=== PATIENT | male | born 1945 | race Caucasian/White ===

== ENCOUNTER 2017-08-03 11:01 | Inpatient (IN) | payer OTHER ==
[~2017-08-03] VITALS: Ht 185.4 cm; Wt 76.7 kg
--- NOTE | 2017-08-03 11:03 | NUR ---
PT BIBA FROM [facility] TO BED 10
[2017-08-03 11:15] VITALS: BP 122/64
[2017-08-03] MEDS ORDERED: NACL 0.9% 500 ML IV SCH (11:39)
[2017-08-03] MEDS ORDERED: PIPERACILLIN/TAZOBACTAM 3.375 GM in DEXT 5% MINI-BAG PLUS 50 ML IV ONE (11:40)
[2017-08-03] MEDS ORDERED: ACETAMINOPHEN 650 MG SUPP RC ONE ×2 (11:40→11:45)
[2017-08-03] MEDS ORDERED: DOXA2TAB1 GT (11:47)
[2017-08-03] MEDS ORDERED: DILT-47 GT (11:47)
[2017-08-03] MEDS ORDERED: PYRI50TA12 GT (11:47)
[2017-08-03] MEDS ORDERED: FAMO-90 GT (11:47)
[2017-08-03] MEDS ORDERED: KEP500 GT (11:47)
[2017-08-03] MEDS ORDERED: ISON100T8 GT (11:47)
[2017-08-03] MEDS ORDERED: GLIP10TE GT (11:47)
[2017-08-03] MEDS ORDERED: L. A1CAP GT (11:47)
[2017-08-03] MEDS ORDERED: DIGO0.121 GT (11:47)
[2017-08-03] MEDS ORDERED: NUTR-583 GT (11:47)
[2017-08-03] MEDS ORDERED: CRAN450C GT (11:47)
[2017-08-03] MEDS ORDERED: MIRABULK GT (11:47)
--- NOTE | 2017-08-03 11:52 | NUR ---
XRAY AT BEDSIDE
[2017-08-03] MEDS ORDERED: PIPERACILLIN/TAZOBACTAM 3.375 GM VIAL IV ONE (11:53)
[2017-08-03 12:03] LABS: HEMATOCRIT 40.4 % (36-52); HEMOGLOBIN 13.5 g/dL (12.0-18.0); MEAN CORPUSCULAR HEMOGLOBIN 30 pg (27-31); MEAN CORPUSCULAR HGB CONC 34 g/dL (33-37); MEAN CORPUSCULAR VOLUME 90 fL (80-94); PLATELET COUNT (AUTO) 242 K/uL (140-450); RED BLOOD CELL COUNT(AUTO) 4.49 MIL/uL (4.20-6.10); RED CELL DISTRIBUTION WIDTH 12.5 % (11.6-13.7); WHITE BLOOD COUNT (AUTO) 20.2 K/uL (4.8-10.8)
[2017-08-03 12:13] LABS: LYMPHOCYTES % (MANUAL) 3 % (20-46); MONOCYTES % (MANUAL) 5 % (5-12)
[2017-08-03 12:14] LABS: ANION GAP 12.9 (8-16); CARBON DIOXIDE 28.4 mmol/L (21-32); CHLORIDE 99 mmol/L (98-107); CREATININE 0.9 mg/dL (0.7-1.3); GLUCOSE 225 mg/dL (74-106); POTASSIUM 4.3 mmol/L (3.5-5.1); SODIUM SERUM 136 mmol/L (136-145); UREA NITROGEN, BLOOD 20 mg/dL (7-18)
[2017-08-03 12:14] LABS: PROTHROMBIN TIME 10.5 secs (10.8-13.4)
[2017-08-03 12:19] LABS: ALBUMIN 3.5 g/dL (3.4-5.0); ASPARTATE AMINOTRANSFERASE 58 U/L (15-37)
[2017-08-03] MEDS ORDERED: ALBUTEROL SULFATE/IPRATROPIU 3 ML SOL IH ONE (12:30)
--- NOTE | 2017-08-03 12:39 | NUR ---
Attempted ivan indwelling catheter insertion, unable to complete. Attempted with coude 14 [address] 16[address] Unable to place catheter at this time. ER Dr abdul.
--- NOTE | 2017-08-03 12:41 | NUR ---
lab critical taken, Lactic acid 3.6. ER aware.
--- NOTE | 2017-08-03 13:17 | NUR ---
PATIENT AWAKE, NONVERBAL. COOL AEROSOL, FI02 28% TO T PIECE. TX GIVEN. SUCTIONED SMALL AMOUNT OF THICK YELLOW SECRETIONS. TOLERATED TX WELL. NO RESPIRATORY DISTRESS NOTED AT THIS TIME.
[2017-08-03] MEDS: NACL 0.9% 1,000 ML IV SCH ×5 (14:09→16:00)
[2017-08-03] MEDS ORDERED: VANCOMYCIN PER PHARMACY MC PRN (14:10)
[2017-08-03] MEDS ORDERED: DEXTROSE 50% 50 ML SYR IVP PRN (14:10)
[2017-08-03] MEDS ORDERED: ALBUTEROL SULFATE/IPRATROPIU 3 ML SOL IH PRN (14:25)
--- NOTE | 2017-08-03 15:05 | NUR ---
ADMITTED PT TO ICU FROM ER. PT IS NONVERBAL, OPENS EYES, UNABLE TO FOLLOW COMMANDS AND UNABLE TO MAKE NEEDS KNOWN. PERRL. TEMP 100.0F. VITAL SIGNS STABLE. FIRST DEGREE AV BLOCK ON MONITOR. PT IS TRACH TO COOL AEROSOL 28%. COARSE INSPIRATORY, EXPIRATORY BREATH SOUNDS AUSCULTATED. BREATHING EVEN AND UNLABORED. ABDOMEN SOFT, NON DISTENDED, G-TUBE IN PLACE TO LEFT UPPER QUADRANT. PERIPHERAL IV G22 TO LEFT HAND ASYMPTOMATIC, PATENT AND INTACT. PT RECEIVING ORDERED IV BOLUS. PULSES PALPABLE TO BUE AND BLE. SKIN IS INTACT, DRY AND WARM TO TOUCH. RIGHT UPPER EXTREMITY FLACCID, LEFT UPPER EXTREMITY AND BLE CONTRACTED. NO EDEMA NOTED. HOB 30 DEGREES, BED IN LOWEST POSITION AND CALL LIGHT WITHIN REACH. WILL CONTINUE TO MONITOR.
--- NOTE | 2017-08-03 15:07 | NUR ---
REPORT GIVEN AND CARE TRANSFERED TO HINA HULL IN ICU 1. ESCORTED VIA GURNEY BY GUZMAN HULL AND MITRA RT.
[2017-08-03] MEDS ORDERED: POTASSIUM CHL 20 MEQ/NACL 0.9% 1,000 ML IV ONE (15:30)
--- NOTE | 2017-08-03 15:40 | NUR ---
COMPLETED ORDERED IV BOLUS THAT STARTED INFUSING AT THE ER.
[2017-08-03] MEDS ORDERED: NACL 0.9% 500 ML IV ONE (15:45)
--- NOTE | 2017-08-03 15:50 | NUR ---
VERIFIED IV FLUID ORDER WITH DR. BROWER. DR. BROWRE AWARE OF POTASSIUM LEVEL 4.3. OKAY TO GIVE IV FLUID ORDERED PER DR. BROWER.
[2017-08-03 16:00] VITALS: BP 109/61
[2017-08-03] MEDS: VANCOMYCIN 1,250 MG in DEXTROSE 5% 250 ML IV SCH (16:07)
--- NOTE | 2017-08-03 16:50 | NUR ---
TUBE FEEDING STARTED AT 10 ML/HR (GOAL 50ML/HR). NO GASTRIC RESIDUALS AT THIS TIME.
[2017-08-03] MEDS: BLOOD GLUCOSE MONITORING 1 DEV DEV FS SCH ×2 (16:54→21:59)
[2017-08-03] MEDS: INSULIN LISPRO SLIDING SCALE 100 UNITS/ML VIAL SUBQ PRN ×2 (16:58→21:59)
--- NOTE | 2017-08-03 17:00 | NUR ---
ATTEMPTED TO INSERT POMPA CATHETER BUT COULD NOT ADVANCE THE CATHETER AFTER INSERTING A FEW INCHES AND RESISTANCE NOTED. DR. BROWER MADE AWARE. PER DR. BROWER, NO NEW ORDER LONG THE PT MAKES URINE AND VOIDS FREELY.
[2017-08-03 18:00] VITALS: BP 108/61
--- NOTE | 2017-08-03 18:21 | NUR ---
NO GASTRIC RESIDUALS. TUBE FEEDING RATE INCREASED TO 20 ML/HR.
[2017-08-03] MEDS: PIPER/TAZO 3.375GM/D5W PREMIX 50 ML IV SCH (18:31)
--- NOTE | 2017-08-03 19:30 | NUR ---
REPORT TAKEN FROM DAY NURSE WITH RESUME CARE . PT HAD A TRACHEOSTOMY ON 28% AEROSOL IN PROGRESS. ON PEG TUBE FEEDING WITH TOLERATING WELL, KEEP HOB UP @ 30 DEG, TOLERATING WELL. PT NEED POMPA CATH WITH H BPH.
--- NOTE | 2017-08-03 19:30 | NUR ---
REPORT GIVEN TO NIGHT NURSE FOR CONTINUITY OF CARE. PT IS IN STABLE CONDITION.
[2017-08-03 20:00] VITALS: BP 102/57
--- NOTE | 2017-08-03 21:15 | NUR ---
CAUDAE # 14 POMPA CATH IN SITU UNDER ASEPTIC TECHNIQUE, GRAVITY TO FLOOR. WITH UA SEND TO LAB
[2017-08-03] MEDS: levETIRAcetam 100 MG/ML ORASYR GT SCH (21:59)
[2017-08-03 22:00] VITALS: BP 108/57
[2017-08-03] MEDS: glipiZIDE ER 5 MG TABER PO SCH (22:00)
--- NOTE | 2017-08-03 22:00 | NUR ---
PARTIAL BED BATH GIVEN , ORAL CARE DONE , REPOSITION DONE WITH RESUME CARE
[2017-08-03 22:03] LABS: BILIRUBIN,URINE NEGATIVE (NEGATIVE); BLOOD, URINE 3+ (NEGATIVE); LEUKOCYTE ESTERASE ,URINE 3+ (NEGATIVE); NITRITE, URINE NEGATIVE (NEGATIVE); PH,URINE 6.5 (5.0-9.0); UGLUCOSE 3+ (NEGATIVE)
[2017-08-03 22:18] LABS: APPEARANCE,URINE HAZY (CLEAR); COLOR,URINE STRAW (YELLOW)
[2017-08-03 22:30] LABS: RBC,URINE 50-80 /HPF (0-5); WBC,URINE TOO MANY TO COUNT /HPF (0-5)
[2017-08-03 22:32] LABS: YEAST,URINE Moderate /HPF (None Seen)
--- NOTE | 2017-08-03 22:37 | NUR ---
RECEIVED AN ORDER OK TO INSERT POMPA CATHETER WITH COUDE TIP 14FR/10ML FROM DR. BROWER. NOTED AND CARRIED OUT.
[2017-08-04] VITALS (13 sets, daily range): BP systolic 91–118; BP diastolic 47–61
--- NOTE | 2017-08-04 00:30 | NUR ---
PT'S ASLEEP, NO SOB, NO STRESS NOTED. DUE MEDICATION GIVEN WITH TOLERATING WELL, RE POSITION DONE , KEEP HOB AT 30 WITH TOLERATING.
--- NOTE | 2017-08-04 02:00 | NUR ---
PT'S ASLEEP, NO SOB, NO STRESS NOTED. DUE MEDICATION GIVEN WITH TOLERATING WELL, RE POSITION DONE , KEEP HOB AT 30 WITH TOLERATING
--- NOTE | 2017-08-04 04:00 | NUR ---
TOTAL BATH GIVEN . CHRISTINE CHANGED, KEEP HOB AT 30 UP WITH TOLERATING WELL.
[2017-08-04] MEDS: VANCOMYCIN 1,250 MG in DEXTROSE 5% 250 ML IV SCH ×2 (04:15→16:51)
--- NOTE | 2017-08-04 06:00 | NUR ---
ACCU CHECK DONE , SLIDING SCALE GIVEN NEEDED.
[2017-08-04] MEDS: BLOOD GLUCOSE MONITORING 1 DEV DEV FS SCH ×4 (06:22→20:09)
[2017-08-04] MEDS: PIPER/TAZO 3.375GM/D5W PREMIX 50 ML IV SCH ×5 (06:25→23:09)
--- NOTE | 2017-08-04 06:34 | NUR ---
PATIENT HAS BEEN SCREENED AND CATEGORIZED HIGH NUTRITION RISK. PATIENT WILL BE SEEN WITHIN 1-2 DAYS OF ADMISSION. 08/04/17-08/05/17 ARMANI OQUENDO MS, RDN
[2017-08-04 06:37] LABS: HEMATOCRIT 35.7 % (36-52); HEMOGLOBIN 12.1 g/dL (12.0-18.0); MEAN CORPUSCULAR HEMOGLOBIN 31 pg (27-31); MEAN CORPUSCULAR HGB CONC 34 g/dL (33-37); MEAN CORPUSCULAR VOLUME 91 fL (80-94); PLATELET COUNT (AUTO) 201 K/uL (140-450); RED BLOOD CELL COUNT(AUTO) 3.94 MIL/uL (4.20-6.10); RED CELL DISTRIBUTION WIDTH 12.8 % (11.6-13.7); WHITE BLOOD COUNT (AUTO) 17.7 K/uL (4.8-10.8)
[2017-08-04] MEDS: INSULIN LISPRO SLIDING SCALE 100 UNITS/ML VIAL SUBQ PRN ×4 (06:44→20:12)
--- NOTE | 2017-08-04 07:30 | NUR ---
REPORT ENDORSE TO DAY NURSE MIESHA - RN WITH RESUME CARE. STOOL SPECIMEN NEED TO SEND, DR BROWER NOTIFIED AND OK TO ORDER STOOL C DIP AND TO BE SEND.
--- NOTE | 2017-08-04 07:30 | NUR ---
RECEIVED BEDSIDE REPORT FROM NIGHT NURSE. PT IS AFEBRILE, NONVERBAL, UNABLE TO FOLLOW COMMANDS AND UNABLE TO MAKE NEEDS KNOWN. VITAL SIGNS STABLE. SINUS RHYTHM ON MONITOR. PT IS TRACH TO COOL AEROSOL 28%. LUNGS SOUND DIMINISHED. BREATHING EVEN AND UNLABORED. ABDOMEN SOFT, NON DISTENDED, G-TUBE TO TUBE FEEDING DIABETISOURCE AC. PERIPHERAL IV G22 TO LEFT HAND ASYMPTOMATIC, PATENT AND INTACT. POMPA CATH IN PLACE DRAINING BLOODY URINE. PULSES PALPABLE TO ALL EXTREMITIES. SKIN IS INTACT, DRY AND WARM TO TOUCH. NO EDEMA NOTED. VITAL SIGNS STABLE. HOB 30 DEGREES, BED IN LOWEST POSITION AND CALL LIGHT WITHIN REACH. WILL CONTINUE TO MONITOR.
[2017-08-04 07:38] LABS: ALBUMIN 2.7 g/dL (3.4-5.0); ANION GAP 9.5 (8-16); ASPARTATE AMINOTRANSFERASE 35 U/L (15-37); CARBON DIOXIDE 26.1 mmol/L (21-32); CHLORIDE 103 mmol/L (98-107); CREATININE 0.7 mg/dL (0.7-1.3); GLUCOSE 185 mg/dL (74-106); POTASSIUM 3.6 mmol/L (3.5-5.1); SODIUM SERUM 135 mmol/L (136-145); TOTAL BILIRUBIN 1.7 mg/dL (0.0-1.0); UREA NITROGEN, BLOOD 13 mg/dL (7-18)
[2017-08-04 08:13] LABS: BASOPHILS % (MANUAL) 0 % (0-2); EOSINOPHILS % (MANUAL) 1 % (0-4); LYMPHOCYTES % (MANUAL) 9 % (20-46); MONOCYTES % (MANUAL) 5 % (5-12)
--- NOTE | 2017-08-04 08:50 | NUR ---
PT SEEN AND EXAMINED BY DR. BROWER. DR. BROWER MADE AWARE OF BLOODY URINE DRAINING FROM POMPA CATHETER. WILL FOLLOW UP WITH NEW ORDERS.
[2017-08-04] MEDS ORDERED: ENOXAPARIN 40 MG/0.4 ML SYR SUBQ SCH (09:00)
[2017-08-04] MEDS: POLYETHYLENE GLYCOL 17 GM/PKT GT SCH (09:00)
[2017-08-04] MEDS ORDERED: DILTIAZEM HCL 240 MG GT SCH (09:00)
[2017-08-04] MEDS: DOXAZOSIN 2 MG TAB GT SCH (09:10)
[2017-08-04] MEDS: PANTOPRAZOLE 40 MG INJ VIAL IVP SCH (09:11)
[2017-08-04] MEDS: levETIRAcetam 100 MG/ML ORASYR GT SCH ×2 (09:11→20:09)
[2017-08-04] MEDS: glipiZIDE ER 5 MG TABER PO SCH ×2 (09:12→20:10)
[2017-08-04] MEDS: DIGOXIN 0.125 MG TAB GT SCH (09:12)
[2017-08-04] MEDS: PYRIDOXINE 50 MG TAB GT SCH (09:12)
[2017-08-04] MEDS: ISONIAZID 100 MG TAB GT SCH (09:12)
[2017-08-04] MEDS ORDERED: DILTIAZEM 60 MG TAB GT SCH (09:30)
--- NOTE | 2017-08-04 09:51 | NUR ---
MEDICATIONS ADMINISTERED. PT TOLERATED WELL. NO G-TUBE RESIDUALS NOTED. TUBE FEEDING RATE INCREASED TO GOAL RATE OF 50 ML/HR.
--- NOTE | 2017-08-04 10:21 | NUR ---
08/04/17 RD INITIAL ASSESSMENT COMPLETED PLEASE REFER TO NUTRITION ASSESSMENT UNDER CARE ACTIVITY FOR ESTIMATED NUTRITIONAL NEEDS. RD RECOMMENDATIONS: 1. CONTINUE ON CURRENT ENTERAL FEEDING AT THIS TIME TIL RATE OF 50 ML/HR IS REACHED. 2. SHOULD PATIENT TOLERATE ENTERAL FEEDINGS AT 50 ML/HR, CONSIDER INCREASING ENTERAL FEEDING TO DIABETISOURCE AC TO RUN AT 65 ML/HR TO BETTER MEET ESTIMATED ENERGY AND PROTEIN NEEDS. AT 65 ML/HR, ENTERAL FEEDING WILL PROVIDE 1560 ML, 1872 KCAL, 93.6 GM PROTEIN, AND 1276 ML FREE WATER TO MEET 82% EST KCAL AND 81% EST PROTEIN NEEDS. 3. CONSULT RDN PRN. 4. RD WILL F/U 2-3 DAYS; HIGH RISK. ARMANI OQUENDO MS, RDN
[2017-08-04] MEDS: POTASSIUM CHL 20 MEQ/NACL 0.9% 1,000 ML IV SCH ×2 (10:31→19:00)
--- NOTE | 2017-08-04 11:17 | NUR ---
PT IS RESTING COMFORTABLY AT THIS TIME. VITAL SIGNS STABLE. INTERMITTENT COUGH WITH LIGHT YELLOW CREAMY SECRETIONS NOTED. NO SIGNS OF DISTRESS AT THIS TIME. WILL CONTINUE TO MONITOR.
--- NOTE | 2017-08-04 13:15 | NUR ---
PT'S BLOOD PRESSURE 91/43. DR. BROWER MADE AWARE OF LOW BP AND 1ST DEGREE AV BLOCK ON MONITOR. NO NEW ORDER AT THIS TIME.
--- NOTE | 2017-08-04 15:00 | NUR ---
NO CHANGE OF CONDITION AT THIS TIME. REDNESS NOTED ON IV SITE. DISCONTINUED PERIPHERAL IV ON LEFT HAND AND INSERTED G22 ON LEFT FOREARM. PT TOLERATED WELL.
--- NOTE | 2017-08-04 17:14 | NUR ---
VITAL SIGNS STABLE. NO S/SX OF ACUTE DISTRESS NOTED. SAFETY MEASURES ENSURED. HOB AT 30 DEGREES, BED IN LOWEST POSITION. WILL CONTINUE TO MONITOR.
--- NOTE | 2017-08-04 18:34 | NUR ---
INTERMITTENT COUGH NOTED. SUCTIONED MODERATE AMOUNT OF THICK CREAMY SECRETIONS. PT TOLERATED WELL.
--- NOTE | 2017-08-04 19:28 | NUR ---
REPORT GIVEN TO CNC MECHANIC RN FOR CONTINUITY OF CARE. PT IS IN STABLE CONDITION.
--- NOTE | 2017-08-04 19:30 | NUR ---
REPORT RECEIVED FROM MORNING NURSE. PT EYES OPEN, NONVERBAL, UNABLE TO FOLLOW DIRECTIONS, PERRL. TRACH-PORTEX 8 TO COOL AEROSOL 28%.. THICK YELLOW SECRETION NOTED FROM TRACH. SUCTIONED. TOLERATED WELL. BILATERAL LUNG SOUNDS DIMINISHED. SR ON MONITOR. GENERALIZED WEAKNESS TO LEFT UPPER EXTREMITY, LEFT EXTREMITY FLACCID, BILATERAL LOWER EXTREMITIES WITH LIMITED ROM AND BILATERAL FEET DROP. CAP REFILL WITHIN 3 SEC. LEFT FA PERIPHERAL IV 22G PATENT AND ASYMPTOMATIC. GT TO FEEDING. PLACEMENT CHECKED. RESIDUAL 5ML. POMPA CATHETER SECURED TO THE RIGHT UPPER LEG WITH STRAWBERRY COLOR URINE WITH SEDIMENTS. MORNING NURSE SAID DR. BROWER MADE AWARE OF THE CHANGE OF URINE. AFEBRILE. FLACC 0. CALL LIGHT IN REACH. HOB ELEVATED TO 30 DEGREES. BED KEPT TO THE LOWEST POSITION. BILATERAL S/R WITH PADS FOR SEIZURE PRECAUTIONS. WILL CONTINUE TO MONITOR.
--- NOTE | 2017-08-04 20:00 | NUR ---
ORAL VAP CARE PROVIDED. REPOSITIONED. AFEBRILE. VS WITHOUT ACUTE DISTRESS NOTED. WILL CONTINUE TO MONITOR.
[2017-08-04] MEDS: DILTIAZEM 60 MG TAB GT SCH (20:55)
--- NOTE | 2017-08-04 22:05 | NUR ---
REPOSITIONED. AFEBRILE. VS STABLE. FALCC 0. YELLOWISH CREAMY SECRETION SUCTIONED FROM TRACH. TOLERATED WELL. CONTINUING WITH 28% COOL AEROSOL. WILL CONTINUE TO MONITOR.
[2017-08-05] VITALS (9 sets, daily range): BP systolic 102–117; BP diastolic 55–69
--- NOTE | 2017-08-05 00:05 | NUR ---
PT HAD LARGE PASTY LIGHT BROWN STOOL. ASSISTED WITH HYGIENE. REPOSITIONED. ORAL VAP CARE PROVIDED. VS STABLE. AFEBRILE. FLACC 0. WILL CONTINUE TO MONITOR.
[2017-08-05] MEDS: VANCOMYCIN 1GM/DEXT 5% PREMIX 200 ML IV SCH ×2 (00:31→08:33)
--- NOTE | 2017-08-05 01:01 | NUR ---
URINE IN POMPA COLLECTION BAG WITH MATHEWS COLORED URINE WITH SEDIMENTS. EMPTIED 1000ML. FALCC 0. AFEBRILE. CONTINUING WITH ZOSYN AND VANCO IV ORDERED. FLUID VIA GT AND IVF BEING ADMINISTERED ORDERED. NO BLADDER DISTENTION NOTED. WILL CONTINUE TO MONITOR.
--- NOTE | 2017-08-05 03:09 | NUR ---
SUCTIONED YELLOWISH CREAMY SECRETION VIA TRACH. PT TOLERATED WELL. KEPT CLEAN AND DRY. AFEBRILE. VS STABLE. WILL CONTINUE TO MONITOR.
--- NOTE | 2017-08-05 04:05 | NUR ---
ORAL VAP CARE PROVIDED. REPOSITIONED. FLACC 0. AFEBRILE. VS STABLE. WILL CONTINUE TO MONITOR.
[2017-08-05] MEDS: POTASSIUM CHL 20 MEQ/NACL 0.9% 1,000 ML IV SCH ×2 (04:57→15:00)
--- NOTE | 2017-08-05 04:58 | NUR ---
MORNING LABS DRAWN. TOLERATED WELL.
[2017-08-05 05:41] LABS: HEMATOCRIT 35.8 % (36-52); MEAN CORPUSCULAR HEMOGLOBIN 30 pg (27-31); MEAN CORPUSCULAR HGB CONC 34 g/dL (33-37); MEAN CORPUSCULAR VOLUME 90 fL (80-94); PLATELET COUNT (AUTO) 197 K/uL (140-450); RED BLOOD CELL COUNT(AUTO) 3.96 MIL/uL (4.20-6.10); RED CELL DISTRIBUTION WIDTH 12.9 % (11.6-13.7); WHITE BLOOD COUNT (AUTO) 11.5 K/uL (4.8-10.8)
--- NOTE | 2017-08-05 05:56 | NUR ---
MORNING CARE, BED BATH, POMPA CATH CARE, AND ORAL CARE PROVIDED. LINENS AND GOWN CHANGED. TOLERATED WELL. AFEBRILE. URINE COLOR DARK PINK. EMPTIED 900ML URINE OUTPUT. FLACC 0. VS STABLE. ALL SAFETY PRECAUTIONS ARE IN PLACE. WILL CONTINUE TO MONITOR.
[2017-08-05 06:14] LABS: ANION GAP 12.3 (8-16); CARBON DIOXIDE 26.6 mmol/L (21-32); CHLORIDE 104 mmol/L (98-107); CREATININE 0.7 mg/dL (0.7-1.3); EOSINOPHILS % (MANUAL) 8 % (0-4); GLUCOSE 228 mg/dL (74-106); LYMPHOCYTES % (MANUAL) 9 % (20-46); MONOCYTES % (MANUAL) 6 % (5-12); POTASSIUM 3.9 mmol/L (3.5-5.1); SODIUM SERUM 139 mmol/L (136-145); UREA NITROGEN, BLOOD 11 mg/dL (7-18)
--- NOTE | 2017-08-05 06:21 | NUR ---
DR. BROWER IN TO SEE PT. UPDATED PT'S CONDITION INCLUDING HEMATURIA. COLOR IS PINK AT THIS TIME. WILL F/U WITH ANY ORDERS.
[2017-08-05] MEDS: BLOOD GLUCOSE MONITORING 1 DEV DEV FS SCH ×4 (06:33→21:20)
[2017-08-05] MEDS: PIPER/TAZO 3.375GM/D5W PREMIX 50 ML IV SCH ×3 (06:33→17:12)
[2017-08-05] MEDS: INSULIN LISPRO SLIDING SCALE 100 UNITS/ML VIAL SUBQ PRN ×4 (06:34→21:05)
--- NOTE | 2017-08-05 06:45 | NUR ---
CHEST XRAY AT BED SIDE.
--- NOTE | 2017-08-05 07:04 | NUR ---
PATIENT QUIETLY RESTING. AWAKENS WHEN SPOKEN TO. O2 SAT 96% ON 6L COOL AEROSOL MIST TO TPIECE AT FIO2 OF 28%. TRACH PORTEX 8. SUCTIONED MODERATE AMOUNT OF THICK WHITE/YELLOW SECRETIONS. BREATH SOUNDS RHOCHI TO CLEAR POST SUCTIONING. NO RESPIRATORY DISTRESS OR WHEEZING NOTED AT THIS TIME. NO TX INDICATED AT THIS TIME. WILL CONTINUE TO MONITOR PATIENT.
--- NOTE | 2017-08-05 07:30 | NUR ---
REPORT GIVEN TO MORNING NURSE FOR CONTINUITY OF CARE. VS STABLE. ALL SAFETY PRECAUTIONS ARE IN PLACE.
[2017-08-05] MEDS: PYRIDOXINE 50 MG TAB GT SCH (08:34)
[2017-08-05] MEDS: PANTOPRAZOLE 40 MG INJ VIAL IVP SCH (08:34)
[2017-08-05] MEDS: POLYETHYLENE GLYCOL 17 GM/PKT GT SCH (08:35)
[2017-08-05] MEDS: DILTIAZEM 60 MG TAB GT SCH ×2 (08:35→21:09)
[2017-08-05] MEDS: DIGOXIN 0.125 MG TAB GT SCH (08:35)
[2017-08-05] MEDS: ISONIAZID 100 MG TAB GT SCH (08:36)
[2017-08-05] MEDS: DOXAZOSIN 2 MG TAB GT SCH (08:36)
[2017-08-05] MEDS: glipiZIDE ER 5 MG TABER PO SCH (08:36)
[2017-08-05] MEDS: levETIRAcetam 100 MG/ML ORASYR GT SCH ×2 (08:36→21:09)
--- NOTE | 2017-08-05 09:42 | NUR ---
Pt. resting in bed comfortably. No acute respiratory distress noted. No change in loc. Will continue to monitor.
--- NOTE | 2017-08-05 09:43 | NUR ---
AT 0730 RECEIVED REPORT FROM [facility] SHIFT NURSE. PT RESTING IN BED COMFORTABLY. SR ON MONITOR. SPONTANEOUS EYES OPENING, NON VERBAL, UNABLE TO FOLLOW SIMPLE COMMANDS. SKIN DRY AND WARM TO TOUCH. AFEBRILE. PUPILS REACTIVE TO LIGHT. PT ON TRAC TO COOL AEROSOL. FIO2 28%. O2 SAT 96%. LUNGS SOUND DIMINISHED, WHEEZES. PERIPHERAL LINE ON LEFT FOREARM 22 G. IV SITE INTACT. SWOLLEN LEFT ARM. NS WITH KCL 20 SHOAIB RUNNING AT 100 ML/HR. ABDOMEN SOFT ROUND AND NON-TENDER. GTUBE ON LEFT UPPER QUADRANT. RESIDUAL 30 ML. CONTINUE ON DIABETISOURCE AT 50 ML/HR. POMPA'S CATH IN PLACE. HEMATURIA NOTED. SKIN INTACT. KEPT HOB ELEVATED. BED IN LOW POSITION LOCKED. WILL CONTINUE TO MONITOR.
[2017-08-05] MEDS ORDERED: PROBIOTIC SCREEN 1 EA MISC MC PRN (11:20)
--- NOTE | 2017-08-05 11:43 | NUR ---
PT RESTING IN BED. NO ACUTE RESPIRATORY DISTRESS NOTED. SR ON MONITOR. NO CHANGE IN LOC. WILL CONTINUE TO MONITOR.
--- NOTE | 2017-08-05 11:49 | NUR ---
ADMINISTERED MEDICATION PER ORDERED. CATHETER CARE PROVIDED. KEPT PT CLEAN AND DRY.
--- NOTE | 2017-08-05 14:36 | NUR ---
CM NOTE REVIEW DONE
--- NOTE | 2017-08-05 14:57 | NUR ---
PT RESTING IN BED COMFORTABLY. NO ACUTE RESPIRATORY DISTRESS NOTED. NO CHANGE IN LOC. WILL CONTINUE TO MONITOR.
--- NOTE | 2017-08-05 17:50 | NUR ---
PT ARRIVED ON THE UNIT WITH 2 ICU NURSES AND R/T. PT IS AWAKE, EYE WIDE OPEN. NO TRACTION. APHASIC. TRACH TO T BAR INTACT. FIO2 6L. PT HAS IV ON L FA 22G SL. KCL 20MEQ IN NS AT 100ML. GTUBE INTACT. DIABETISOURCE 65ML/HR; 200ML H2O FLUSH Q 6 HR. POMPA CATH INSERTED 08/03, INTACT. HEMATOMA 100ML IN BAG. SKIN INTACT. L ARM SWOLLEN. LBM: 08/05. PER CHANNEL SALES DIRECTOR, ZOHAIB MEDINA D/T HIGH TROUGH. REASSESS 6AM. ADMINISTERED TELE MONITOR. YELLOW ARM BAND, YELLOW SOCKS, YELLOW SIGN FOR FALL RISK. WILL CONTINUE TO MONITOR PT.
--- NOTE | 2017-08-05 18:40 | NUR ---
AT 1746 PT TRANSFERRED TO TELE UNIT 107B. VS T 97.8 HR 80 BP 110/60 SPO2 98 RR 22. PT TRANSFERRED TO TELE SAFELY. PT ON STABLE CONDITION. NO PT BELONGINGS. REPORT GIVEN TO TELE NURSE WADE.
--- NOTE | 2017-08-05 18:50 | NUR ---
E [employer] STRATEGIST REPOSITIONED AND CLEANED PT AND GOT HIM SETTLED. PT TOLERATED WELL. WILL CONTINUE TO MONITOR PT.
--- NOTE | 2017-08-05 19:13 | NUR ---
R/T HERE FOR BREATHING TX.
--- NOTE | 2017-08-05 19:20 | NUR ---
RECEIVED REPORT FROM DAY SHIFT NURSE. PT AWAKE, EYES OPEN, APHASIC. TRACH TO T PIECE FIO2 28%, O2 AT 6L/MIN. POMPA CATH IN PLACE DRAINING PINKISH URINE. G-TUBE IN PLACE WITH DIABETISOURCE AT 65ML/HR. IV TO LEFT FA #22G WITH KCL 20 MEQ IN NS AT 100 ML/HR. RT IN THE ROOM FOR BREATHING TREATMENT. NO S/S OF PAIN. FALL, SEIZURE AND ASPIRATION PRECAUTION IN PLACE. CALL LIGHT WITHIN REACH. WILL CONTINUE TO MONITOR.
--- NOTE | 2017-08-05 19:32 | NUR ---
ENDORSED PT TO THE NIGHTSHIFT NURSE AT BEDSIDE FOR CONTINUITY OF CARE. PT IS IN STABLE CONDITION.
[2017-08-05] MEDS: glipiZIDE 10 MG TAB GT SCH (21:08)
--- NOTE | 2017-08-05 21:10 | NUR ---
CHECKED RESIDUAL 5 ML. DUE MEDS GIVEN. PT TOLERATED WELL. POMPA CATH DRAINING LIGHT RED URINE. REPOSITIONED Q2H. NO DISTRESS NOTED.
[2017-08-06] VITALS: BP 124/57
--- NOTE | 2017-08-06 00:05 | NUR ---
PT AWAKE, EYES OPEN. NO S/S OF PAIN OR DISCOMFORT. TOLERATING FEEDING WELL. KEPT PT CLEAN, DRY AND COMFORTABLE. SAFETY, SEIZURE AND ASPIRATION PRECAUTION IN PLACE.
[2017-08-06] MEDS: PIPER/TAZO 3.375GM/D5W PREMIX 50 ML IV SCH ×3 (00:34→12:53)
--- NOTE | 2017-08-06 02:15 | NUR ---
PT RESTING IN BED WITH EYES CLOSED. NO S/S OF DISTRESS. FLACC 0.
[2017-08-06 04:00] VITALS: BP 112/59
--- NOTE | 2017-08-06 04:05 | NUR ---
RESIDUAL CHECKED 5 ML. STARTED NEW BAG OF DIABETISOURCE AT 65ML/HR. ASPIRATION PRECAUTION IN PLACE.
--- NOTE | 2017-08-06 05:53 | NUR ---
PT AWAKE BUT DOESN'T FOLLOW COMMANDS. PT TOLERATING FEEDING WELL. NO DISTRESS NOTED.
[2017-08-06] MEDS: POTASSIUM CHL 20 MEQ/NACL 0.9% 1,000 ML IV SCH ×2 (06:30→10:46)
[2017-08-06] MEDS: BLOOD GLUCOSE MONITORING 1 DEV DEV FS SCH ×2 (06:38→11:30)
[2017-08-06] MEDS: INSULIN LISPRO SLIDING SCALE 100 UNITS/ML VIAL SUBQ PRN ×2 (06:40→12:53)
[2017-08-06 06:57] LABS: BASOPHILS # (AUTO) 0.1 K/uL (0.00-0.22); BASOPHILS % (AUTO) 1.5 % (0.0-2.0); EOSINOPHILS # (AUTO) 0.4 K/uL (0-0.4); EOSINOPHILS % (AUTO) 4.7 % (0.0-4.0); HEMATOCRIT 36.6 % (36-52); HEMOGLOBIN 12.4 g/dL (12.0-18.0); LYMPHOCYTES # (AUTO) 1.1 K/uL (2.0-11.5); LYMPHOCYTES % (AUTO) 11.9 % (20.5-51.1); MEAN CORPUSCULAR HEMOGLOBIN 31 pg (27-31); MEAN CORPUSCULAR HGB CONC 34 g/dL (33-37); MEAN CORPUSCULAR VOLUME 91 fL (80-94); MONOCYTES # (AUTO) 0.7 K/uL (0.8-1.0); MONOCYTES % (AUTO) 7.2 % (1.7-9.3); NEUTROPHILS % (AUTO) 74.7 % (42.2-75.2); PLATELET COUNT (AUTO) 226 K/uL (140-450); RED BLOOD CELL COUNT(AUTO) 4.03 MIL/uL (4.20-6.10); WHITE BLOOD COUNT (AUTO) 9.3 K/uL (4.8-10.8)
--- NOTE | 2017-08-06 07:18 | NUR ---
ENDORSED PT TO DAY SHIFT NURSE. PT IN STABLE CONDITION.
--- NOTE | 2017-08-06 07:20 | NUR ---
BEDSIDE REPORT RECEIVED FROM BUSINESS DEVELOPMENT COORDINATOR NURSE. PATIENT IS APHASIC AND IS TRACKING WITH HIS EYES. TRACH TO AEROSOL MIST IS CONNECTED, CLEAN, DRY, AND INTACT. SUCTION AT BEDSIDE. NO S/S OF RESPIRATORY DISTRESS. RT AT BEDSIDE. PATIENT GETTING A BREATHING TREATMENT. IV IN LEFT FOREARM 22G CLEAN, DRY, INTACT AND PATENT. NON PITTING EDEMA IN LEFT ARM PRESENT. SEIZURE PRECAUTIONS ARE IN PLACE, SIDE RAILS UP AND PADDING IN PLACE. FALL PRECAUTIONS IN PLACE. GTUBE IS CLEAN AND DRY. DIABETISOURCE INFUSING AT 65MLS/HR. POMPA CATHETER PATENT WITH BLOOD SEEN IN URINE CONTAINING 600MLS IN POMPA BAG, EMPTIED. WILL CONTINUE TO MONITOR PATIENT.
[2017-08-06 07:23] LABS: ALBUMIN 2.7 g/dL (3.4-5.0); ASPARTATE AMINOTRANSFERASE 25 U/L (15-37); CARBON DIOXIDE 26.1 mmol/L (21-32); CHLORIDE 105 mmol/L (98-107); CREATININE 0.7 mg/dL (0.7-1.3); GLUCOSE 276 mg/dL (74-106); POTASSIUM 4.1 mmol/L (3.5-5.1); SODIUM SERUM 140 mmol/L (136-145); TOTAL BILIRUBIN 0.8 mg/dL (0.0-1.0); UREA NITROGEN, BLOOD 12 mg/dL (7-18)
[2017-08-06 08:00] VITALS: BP 107/57
[2017-08-06] MEDS ORDERED: LACTOBACILLUS RHAMNOSUS GG 1 EACH CAP PO SCH (09:00)
[2017-08-06] MEDS: DILTIAZEM 60 MG TAB GT SCH (09:00)
[2017-08-06] MEDS: DIGOXIN 0.125 MG TAB GT SCH (09:00)
[2017-08-06] MEDS: POLYETHYLENE GLYCOL 17 GM/PKT GT SCH (09:53)
[2017-08-06] MEDS: PANTOPRAZOLE 40 MG INJ VIAL IVP SCH (09:54)
[2017-08-06] MEDS: levETIRAcetam 100 MG/ML ORASYR GT SCH (09:54)
[2017-08-06] MEDS: PYRIDOXINE 50 MG TAB GT SCH (09:55)
[2017-08-06] MEDS: ISONIAZID 100 MG TAB GT SCH (09:55)
[2017-08-06] MEDS: glipiZIDE 10 MG TAB GT SCH (09:56)
[2017-08-06] MEDS ORDERED: VANCOMYCIN HCL 1,250 MG in DEXTROSE 5% 250 ML IV SCH (10:00)
[2017-08-06] MEDS: DOXAZOSIN 2 MG TAB GT SCH (10:01)
--- NOTE | 2017-08-06 10:24 | NUR ---
SPOKE WITH DUSTIN AT [facility] [place]. FAXED INFORMATION TO HER.
--- NOTE | 2017-08-06 10:24 | NUR ---
PATIENT RECEIVED MORNING MEDS VIA OmbuUBE. MEDS ARE CRUSHED PER PROTOCOL. HELD BP MEDS D/T DECREASED BP. PATIENT TOLERATED MEDS WELL. SUCTIONED PATIENTS D/T INCREASED SECRETIONS. PATIENT SHOWS NO S/S OF DISTRESS. ADMINISTERED VANCO. INFUSING WELL. WILL CONTINUE TO MONITOR PT. Addendum: 08/06/17 at 1046 by Lianna Vidales RN CHECKED FOR PLACEMENT, RESIDUAL-0, AND PATENCY.
[2017-08-06 12:00] VITALS: BP 117/62
--- NOTE | 2017-08-06 12:10 | NUR ---
RECEIVED A CALL FROM DUSTIN AT [facility]. PATIENT CAN GO TO ROOM 5C UNDER DR. BROWER ANYTIME. I CALLED [facility] AND SPOKE WITH CAMILLE. SET UP TRANSPORT FOR 1:30P.Nina. WADE HULL AWARE.
[2017-08-06] MEDS ORDERED: [UNRECOGNIZED DRUG - CODE] IV (13:02)
[2017-08-06] MEDS ORDERED: ZOS3.375I IV (13:05)
--- NOTE | 2017-08-06 13:40 | NUR ---
GAVE REPORT TO BRUCE HULL FROM [facility] [place]. PATIENT IS IN STABLE CONDITION, DISCONNECTED IV SALINE LOCK. POMPA IS INTACT. ID BANDS REMOVED, TELE MONITOR REMOVED, SCDS REMOVED. [facility] HERE, GETTING PATIENT READY TO BE TRANSPORTED. GTUBE CLAMPED AND INTACT. ALL PERSONAL BELONGINGS ARE GIVEN TO [facility].
--- NOTE | 2017-08-06 13:45 | NUR ---
PATIENT WHEELED OUT BY [facility]. PATIENT IN STABLE CONDITION.
== END 2017-08-06 13:45 | DRG 871 ==
LOC: MED 11:01 → MIC 14:21 → MTU 08-05 17:45
PROVIDERS: ADMIT Family Medicine; ATTEND Family Medicine
DX: A41.9 Sepsis, unspecified organism (principal); J96.21 Acute and chronic respiratory failure with hypoxia; J69.0 Pneumonitis due to inhalation of food and vomit; Z93.0 Tracheostomy status; G93.41 Metabolic encephalopathy; N39.0 Urinary tract infection, site not specified; R13.10 Dysphagia, unspecified; E11.9 Type 2 diabetes mellitus without complications; E78.1 Pure hyperglyceridemia; E78.5 Hyperlipidemia, unspecified; R31.9 Hematuria, unspecified; R76.11 Nonspecific reaction to tuberculin skin test without active tuberculosis; Z79.899 Other long term (current) drug therapy; Z93.1 Gastrostomy status
CPT/HCPCS: 36415; 36600; 71045; 80048; 80053; 80202; 81001; 82550; 82553; 82803; 82948; 83605; 83874; 83880; 84484; 85025; 85610; 85730; 87040; 87070; 87081; 87086; 87186; 87205; 89220; 93005; 94640; 96365; 99291; C9113; J1815; J2543; J3370; J7030; J7060; J7620; Q0092

== ENCOUNTER 2019-10-15 16:21 | Emergency (ER) | payer OTHER ==
[~2019-10-15] VITALS: Ht 180.3 cm; Wt 73.9 kg
[~2019-10-15 16:21] MED LIST: CRAN450C GT; DIGO0.122 GT; DILT-47 GT; DOXA2TAB1 GT; FAMO-90 GT; GLIP10TE GT; ISO100 GT; KEP500 GT; L. A1CAP GT; MIRABULK GT; NUTR-583 GT; PYRI-218 GT; ZOS3.375I IV; [UNRECOGNIZED DRUG - CODE] IV
--- NOTE | 2019-10-15 16:21 | NUR ---
PT BIBA TO BED 10 VIA VLADIMIR
[2019-10-15 16:25] VITALS: BP 135/77
--- NOTE | 2019-10-15 16:25 | NUR ---
biba from [facility] for oral and trach bleeding with suctioning. HR EVEN AND REGULAR; does not present with FEVER, SOB, OR COUGH AT THIS TIME; PATIENT is non-verbal but PAIN is 0/10 AT THIS TIME on the flacc scale; VSS; PATIENT POSITIONED FOR COMFORT; HOB ELEVATED; BEDRAILS UP X2; BED DOWN. ER MD MADE AWARE OF PT STATUS.
[2019-10-15] MEDS ORDERED: CHLO473S62 MM (16:58)
[2019-10-15] MEDS ORDERED: CRAN450C GT (16:58)
[2019-10-15] MEDS ORDERED: OMEG1CAP26 GT (16:58)
[2019-10-15] MEDS ORDERED: ATOR20TA PO (16:58)
[2019-10-15] MEDS ORDERED: SENN8.6T37 GT (16:58)
[2019-10-15] MEDS ORDERED: ASCO500T95 GT (16:58)
[2019-10-15] MEDS ORDERED: METF1000 GT (16:58)
[2019-10-15] MEDS ORDERED: MULT-1328 GT (16:58)
[2019-10-15] MEDS ORDERED: INSU300S SUBQ (16:58)
[2019-10-15] MEDS ORDERED: MAGN400S60 GT (16:58)
[2019-10-15] MEDS ORDERED: LIRA6SOL1 SQ (16:58)
[2019-10-15 17:23] LABS: BASOPHILS % (AUTO) 0.5 % (0.0-2.0); EOSINOPHILS # (AUTO) 0.5 K/uL (0-0.4); EOSINOPHILS % (AUTO) 5.1 % (0.0-4.0); HEMATOCRIT 34.3 % (36-52); HEMOGLOBIN 11.3 g/dL (12.0-18.0); LYMPHOCYTES # (AUTO) 1.2 K/uL (2.0-11.5); LYMPHOCYTES % (AUTO) 13.5 % (20.5-51.1); MEAN CORPUSCULAR HEMOGLOBIN 29 pg (27-31); MEAN CORPUSCULAR HGB CONC 33 g/dL (33-37); MONOCYTES # (AUTO) 0.8 K/uL (0.8-1.0); NEUTROPHILS # (AUTO) 6.3 K/uL (1.8-7.7); NEUTROPHILS % (AUTO) 71.9 % (42.2-75.2); PLATELET COUNT (AUTO) 311 K/uL (140-450); RED CELL DISTRIBUTION WIDTH 15.2 % (11.6-13.7); WHITE BLOOD COUNT (AUTO) 8.8 K/uL (4.8-10.8)
--- NOTE | 2019-10-15 17:23 | NUR ---
RT CALLED TO SUCTION PT.
--- NOTE | 2019-10-15 17:27 | NUR ---
RT IS AT BEDSIDE.
[2019-10-15 17:35] LABS: ANION GAP 11.7 (8-16); CARBON DIOXIDE 34.5 mmol/L (21-32); CHLORIDE 99 mmol/L (98-107); CREATININE 0.9 mg/dL (0.6-1.3); GLUCOSE 255 mg/dL (74-106); POTASSIUM 4.2 mmol/L (3.5-5.1); SODIUM SERUM 141 mmol/L (136-145); UREA NITROGEN, BLOOD 37 mg/dL (7-18)
[2019-10-15 17:41] LABS: ALBUMIN 3.1 g/dL (3.4-5.0); ASPARTATE AMINOTRANSFERASE 18 U/L (15-37); TOTAL BILIRUBIN 0.5 mg/dL (0.0-1.0)
--- NOTE | 2019-10-15 17:53 | NUR ---
REPORT GAVE TO MARIE AT THE FACILITY OF [facility] [place]. WILL CALL LATER TO NOTIFY THE ETA.
--- NOTE | 2019-10-15 18:05 | NUR ---
SPOKE TO ANALIZA OF [facility] AND INFORMED THAT THE ETA WILL BE ONE HOUR.
[2019-10-15 18:57] VITALS: BP 122/63
--- NOTE | 2019-10-15 18:57 | NUR ---
[facility] IS TRANSFERING PT AT BEDSIDE.
== END 2019-10-15 18:57 ==
LOC: MED 16:21
DX: D64.9 Anemia, unspecified (principal); E11.9 Type 2 diabetes mellitus without complications; R56.9 Unspecified convulsions; Z79.899 Other long term (current) drug therapy; Z98.890 Other specified postprocedural states; Z00.00 Encounter for general adult medical examination without abnormal findings
CPT/HCPCS: 36415; 80053; 82948; 85025; 99283

== ENCOUNTER 2019-11-25 23:30 | Inpatient (IN) | payer OTHER, SELFPAY ==
[~2019-11-25] VITALS: Ht 182.9 cm; Wt 81.6 kg
[~2019-11-25 23:30] MED LIST changes: +ASCO500T95 GT; +ATOR20TA PO; +CHLO473S62 MM; -GLIP10TE GT; +INSU300S SUBQ; -ISO100 GT; +LIRA6SOL1 SQ; +MAGN400S60 GT; +METF1000 GT; +MULT-1328 GT; -NUTR-583 GT; +OMEG1CAP26 GT; -PYRI-218 GT; +SENN8.6T37 GT; -ZOS3.375I IV; -[UNRECOGNIZED DRUG - CODE] IV
--- NOTE | 2019-11-25 23:33 | NUR ---
PT EVE JONES. TAKEN TO BED 11
--- NOTE | 2019-11-25 23:40 | NUR ---
74 YO M BIBA FROM [facility] FOR C/C OF ABDOMINAL DISTENTION AND BLOOD COMING FROM POMPA CATH. CATH WAS PLACED AT [facility] AT 1900, THEY NOTICED IT WAS LEAKING BLOOD AT 2100. ABD DISTENTION WAS ALSO REPORTED PER [facility] REPORT. PT IS TRACH TO 6L O2. PT IS NONVERBAL. PT PLACED ON WINDOW ASSEMBLER. BED LOCKED AND IN LOWEST POSITION. UNKNOWN MED HX PER REPORT UNKOWN RX NKA
[2019-11-25 23:46] VITALS: BP 159/79
--- NOTE | 2019-11-25 23:54 | NUR ---
Dr. Graham examining patient.
[2019-11-25] MEDS ORDERED: NACL 0.9% 500 ML IV SCH (23:59)
--- NOTE | 2019-11-26 | NUR ---
BLADDER SCAN PERFORMED. 500 + URINARY RETENTION SEEN IN BLADDER. OLD POMPA REMOED AND REPLACED WITH A NEW POMPA CATH. 800 ML OUTPUT OBTAINED.
--- NOTE | 2019-11-26 00:05 | NUR ---
X-Ray at bedside.
[2019-11-26 00:35] LABS: BASOPHILS # (AUTO) 0.1 K/uL (0.00-0.22); BASOPHILS % (AUTO) 0.9 % (0.0-2.0); EOSINOPHILS # (AUTO) 0.1 K/uL (0-0.4); EOSINOPHILS % (AUTO) 0.4 % (0.0-4.0); HEMOGLOBIN 13.5 g/dL (12.0-18.0); LYMPHOCYTES # (AUTO) 1.2 K/uL (2.0-11.5); MEAN CORPUSCULAR HEMOGLOBIN 29 pg (27-31); MEAN CORPUSCULAR HGB CONC 33 g/dL (33-37); MEAN CORPUSCULAR VOLUME 89.1 fL (80-94); MONOCYTES # (AUTO) 0.8 K/uL (0.8-1.0); MONOCYTES % (AUTO) 5.2 % (1.7-9.3); NEUTROPHILS # (AUTO) 13.3 K/uL (1.8-7.7); PLATELET COUNT (AUTO) 354 K/uL (140-450); RED CELL DISTRIBUTION WIDTH 15.7 % (11.6-13.7)
[2019-11-26 00:51] LABS: ALBUMIN 3.6 g/dL (3.4-5.0); ANION GAP 16.8 (8-16); ASPARTATE AMINOTRANSFERASE 47 U/L (15-37); CARBON DIOXIDE 29.5 mmol/L (21-32); CHLORIDE 91 mmol/L (98-107); CREATININE 0.8 mg/dL (0.6-1.3); GLUCOSE 309 mg/dL (74-106); POTASSIUM 5.3 mmol/L (3.5-5.1); SODIUM SERUM 132 mmol/L (136-145); TOTAL BILIRUBIN 0.5 mg/dL (0.0-1.0); UREA NITROGEN, BLOOD 31 mg/dL (7-18)
[2019-11-26 00:55] LABS: PROTHROMBIN TIME 9.9 secs (10.8-13.4)
[2019-11-26 00:58] LABS: LYMPHOCYTES % (AUTO) 7.5 % (20.5-51.1); WHITE BLOOD COUNT (AUTO) 15.4 K/uL (4.8-10.8)
[2019-11-26] MEDS ORDERED: PIPERACILLIN/TAZOBACTAM 3.375 GM in DEXTROSE 5% 50 ML IV ONE (01:05)
[2019-11-26] MEDS ORDERED: NACL 0.9% 2,000 ML IV ONE (01:05)
[2019-11-26] MEDS ORDERED: LEVOFLOXACIN 500 MG/D5W PREMIX 100 ML IV ONE ×2 (01:05→03:38)
--- NOTE | 2019-11-26 01:06 | NUR ---
RECEIVED CRITICAL LAB REPORT FROM LAVONNE OF LACTIC ACID OF 5.8 ERMD MADE AWARE.
[2019-11-26 01:10] LABS: APPEARANCE,URINE BLOODY (CLEAR); BILIRUBIN,URINE NEGATIVE (NEGATIVE); BLOOD, URINE 3+ (NEGATIVE); COLOR,URINE RED (YELLOW); LEUKOCYTE ESTERASE ,URINE 1+ (NEGATIVE); NITRITE, URINE POSITIVE (NEGATIVE); PH,URINE 7.5 (5.0-9.0); UGLUCOSE 1+ (NEGATIVE)
[2019-11-26] MEDS ORDERED: SODIUM ZIRCONIUM CYCLOSILICATE 10 GM POWD.PACK PO ONE (01:10)
[2019-11-26 01:20] LABS: RBC,URINE TOO NUMEROUS TO COUN /HPF (0-5)
--- NOTE | 2019-11-26 01:25 | NUR ---
PT TAKEN TO CT
[2019-11-26] MEDS ORDERED: ONDANSETRON 4 MG/2 ML VIAL IM/IVP PRN (01:35)
[2019-11-26] MEDS ORDERED: ZOLPIDEM 5 MG TAB PO PRN (01:35)
[2019-11-26] MEDS ORDERED: HYDROcodone/APAP 5/325 MG 1 TAB TAB PO PRN (01:35)
[2019-11-26] MEDS ORDERED: LORazepam 2 MG/ML VIAL IM/IVP PRN (01:35)
[2019-11-26] MEDS ORDERED: MORPHINE SULFATE 2 MG/ML SYR IVP PRN (01:35)
[2019-11-26] MEDS ORDERED: DOCUSATE SODIUM 100 MG GELCAP PO PRN (01:35)
--- NOTE | 2019-11-26 01:35 | NUR ---
PT RETURN FROM CT
[2019-11-26] MEDS ORDERED: PIPERACILLIN/TAZOBACTAM 3.375 GM VIAL IV ONE (01:57)
[2019-11-26 02:05] LABS: CHOL/HDL RATIO 5.4 (1-4.5); FREE T4 (FREE THYROXINE) 1.28 ng/dL (0.76-1.46); MAGNESIUM 1.8 mg/dL (1.8-2.4); PHOSPHORUS 3.4 mg/dL (2.5-4.9); THYROID STIMULATING HORMONE 5.56 uIU/mL (0.34-3.74)
--- NOTE | 2019-11-26 03:00 | NUR ---
PT RESTING IN BED COMFORTABLY. BED LOCKED AND IN LOWEST POSITION. EQUAL CHEST RISE AND FALL.
[2019-11-26] MEDS ORDERED: DEXTROSE 50% 50 ML SYR IVP PRN (04:35)
[2019-11-26] MEDS: NACL 0.9% 1,000 ML IV SCH ×3 (05:38→17:43)
--- NOTE | 2019-11-26 06:03 | NUR ---
PT RESTING IN BED COMFORTABLY. BED LOCKED AND IN LOWEST POSITION. EQUAL CHEST RISE AND FALL.
[2019-11-26] MEDS ORDERED: SODIUM ZIRCONIUM CYCLOSILICATE 10 GM POWD.PACK ONE (06:22)
--- NOTE | 2019-11-26 07:24 | NUR ---
REPORT GIVEN TO DELLA CUEVAS. TRANSFER OF CARE AT THIS TIME.
--- NOTE | 2019-11-26 07:25 | NUR ---
RECEIVED REPORT FROM LEONARDO FOR CONTINUATION OF CARE
[2019-11-26] MEDS: BLOOD GLUCOSE MONITORING 1 DEV DEV FS SCH ×4 (07:30→21:00)
--- NOTE | 2019-11-26 08:49 | NUR ---
PATIENT HAS BEEN SCREENED AND CATEGORIZED HIGH NUTRITION RISK. PATIENT WILL BE SEEN WITHIN 1-2 DAYS OF ADMISSION. 11/26/19-11/27/[address]
[2019-11-26] MEDS: SENNA 8.6 MG TAB GT SCH ×2 (09:00→10:47)
[2019-11-26] MEDS: ATORVASTATIN 20 MG TAB PO SCH ×2 (09:00→10:48)
[2019-11-26] MEDS ORDERED: DILTIAZEM HCL 240 MG GT SCH (09:00)
[2019-11-26] MEDS: DIGOXIN 0.125 MG TAB GT SCH ×2 (09:00→10:47)
[2019-11-26] MEDS ORDERED: INSULIN GLARGINE HUM REC ANLOG U SUBQ SCH (09:00)
[2019-11-26] MEDS: INSULIN LANTUS 100 UNITS/ML 10 ML VIAL SUBQ SCH (09:00)
[2019-11-26] MEDS: POLYETHYLENE GLYCOL 17 GM/PKT GT SCH ×2 (09:00→10:47)
[2019-11-26] MEDS: metFORMIN 500 MG TAB GT SCH ×2 (09:00→23:24)
[2019-11-26] MEDS ORDERED: LIRAGLUTIDE 1.8 MG SQ SCH (09:00)
[2019-11-26] MEDS: DOXAZOSIN 2 MG TAB GT SCH ×2 (09:00→10:46)
--- NOTE | 2019-11-26 09:30 | NUR ---
WITHHELD HUMALOG SLIDING SCALE DUE TO INABILITY TO PROVIDE TUBE FEEDING.
--- NOTE | 2019-11-26 10:35 | NUR ---
unable to admin gtube medications. will call admitting doctor
--- NOTE | 2019-11-26 10:51 | NUR ---
Dr. Barry is evaluating the patient at bedside.
--- NOTE | 2019-11-26 11:22 | NUR ---
CALLED DR. UNGER TO INFORM PATIENT DID INFACT HAVE HIS POMPA REPLACED LAST NIGHT, 600ML BLOODY OUTPUT DRAINED
--- NOTE | 2019-11-26 12:20 | NUR ---
ASSISTED DR. UNGER WITH MANUAL IRRIGATION OF POMPA CATHETER
[2019-11-26] MEDS: levETIRAcetam 100 MG/ML ORASYR GT SCH ×2 (13:00→23:23)
[2019-11-26] MEDS: PIPERACILLIN/TAZOBACTAM 3.375 GM in DEXTROSE 5% 50 ML IV SCH ×2 (13:00→23:23)
[2019-11-26] MEDS ORDERED: DIGOXIN 0.25 MG/ML AMP IV SCH (13:30)
[2019-11-26] MEDS ORDERED: levETIRAcetam 100 MG/ML VIAL IV ONE (13:44)
--- NOTE | 2019-11-26 14:02 | NUR ---
KEPPRA NOT ADMINISTERED, GTUBE NOT WORKING
--- NOTE | 2019-11-26 14:35 | NUR ---
RECEIVED PT FROM ER, PATIENT EYES OPEN, NON VERBAL TRACH TO TBAR 6L FIO2 28%, RT CHECKED PT, O2 SAT 100, POMPA NOT DRAINING,CHANGED DRAINAGE BAG, BLOOD SIPPING ON THE PENIS, WILL CALL MD, TRIED TO IRRIGATE POMPA UNABLE, GT NO RESIDUAL NOTED, SKIN WARM TO TOUCH RESP. EVEN AND UNLABORED, NOTED, PRESSURE ULCER ON SACRAL, KEPT HOB UP.
--- NOTE | 2019-11-26 14:51 | NUR ---
Patient will be admitted to care of DR. MCCANN. Admited to TELEMETRY. Will go to room 113. Belongings list completed. Report to DELLA AL.
--- NOTE | 2019-11-26 15:22 | NUR ---
11/26/19 RD INITIAL ASSESSMENT COMPLETED PLEASE REFER TO NUTRITION ASSESSMENT UNDER CARE ACTIVITY FOR ESTIMATED NUTRITIONAL NEEDS. 1. RD RECOMMENDED JEVITY 1.2 @ 70ML/HR. START AT 20 ML/HR, INCREASE BY 20 ML/HR Q6H -THIS WILL PROVIDE 1355 ML OF WATER, 2016 CALORIES AND 93 GM OF PROTEIN. 2. RECOMMEND 100 ML Q6H FREE WATER FLUSH 3. RD TO FOLLOW-UP 2-3 DAYS, HIGH RISK EMRE COREY RD
--- NOTE | 2019-11-26 15:22 | NUR ---
TALKED TO [facility] AND VERIFIED IF NOVEL WU VIRUS SWAB IS DONE PER SAMANTHA THEY ALREADY SEND IT OUT
[2019-11-26 15:37] VITALS: BP 147/88
--- NOTE | 2019-11-26 16:11 | NUR ---
RELAYED TO DR. BLANKENSHIP ABOUT THE WOUND, ON SACRAL AND VTE SCORE, MD WILL PUT ORDER
[2019-11-26 16:31] VITALS: BP 138/93
--- NOTE | 2019-11-26 17:00 | NUR ---
PAGED DR UNGER TO RELAY ABOUT THE POMPA NO URINE DRAINING FROM THE POMPA CATHETER, UNABLE TO IRRIGATE, WILL CALL BACK
[2019-11-26] MEDS ORDERED: CRUSHER, PILL MC ONE (18:18)
--- NOTE | 2019-11-26 18:21 | NUR ---
DR. UNGER HERE AND SEEN PATIENT, IRRIGATED POMPA, WITH CLOT NOTED, WILL CONTINUE TO IRRIGATE POMPA AT LEAST EVERY 2 HOURS, POMPA CATH DRAINING TO A RED OUTPUT
[2019-11-26] MEDS: DILTIAZEM 60 MG TAB GT SCH (18:34)
[2019-11-26] MEDS: INSULIN LISPRO SLIDING SCALE 100 UNITS/ML VIAL SUBQ PRN ×2 (18:41→23:39)
--- NOTE | 2019-11-26 19:20 | NUR ---
RECEIVED PATIENT FROM AM SHIFT RN. PATIENT IS ON TRACH TO T BAR ON 6L. NO SOB WITH SATURATION OF 99%. FLACC-0 ASSESSMENT DONE. NOTED RIGHT HAND IV 22 G, INTACT AND PATENT WITH IVF NS AT 130CC/HR INFUSING WELL. WITH INDWELLING [facility] CATH, HEMATURIA NOTED. FLUSHED WITH NS, CLOTTED BLOOD NOTED UPON FLUSHING. ON JEVITY 1.2 FEEDING, TOLERATED WELL WITH NO RESIDUAL NOTED. G TUBE IN PLACE AND INTACT. NOTED SACRAL OPEN WOUND WITH DRY DRESSING. TELE MONITOR ATTACHED. DROPLET PRECAUTION IN PLACE. FALL RISK PROTOCOL OBSERVED. PLAN OF CARE WAS DISCUSSED. CALL LIGHT WITHIN REACH. WILL CONTINUE TO MONITOR.
[2019-11-26 20:00] VITALS: BP 142/74
[2019-11-26] MEDS: FAMOTIDINE 20 MG TAB GT SCH (23:24)
--- NOTE | 2019-11-26 23:24 | NUR ---
DUE MEDS GIVEN ORDERED, TOLERATED WELL. NO A/R NOTED.
[2019-11-27] VITALS: BP 142/72
[2019-11-27] MEDS: DILTIAZEM 60 MG TAB GT SCH ×4 (00:40→17:50)
[2019-11-27] MEDS: NACL 0.9% 1,000 ML IV SCH ×2 (00:41→03:06)
[2019-11-27 04:00] VITALS: BP 146/73
--- NOTE | 2019-11-27 04:00 | NUR ---
IV SITE DISLODGED. DRESSED SITE. TRIED TO RE-INSERT SEVERAL TIMES WITH THE HELP OF E.R NURSE BUT UNSUCCESSFUL, PATIENT IS VERY HARD STICK. INFORMED RESIDENT AT 0530, HE SAID OK AND TO ENDORSE IT TO THE NEXT SHIFT. ORDER NOTED.
[2019-11-27] MEDS: PIPERACILLIN/TAZOBACTAM 3.375 GM in DEXTROSE 5% 50 ML IV SCH ×3 (05:00→21:11)
[2019-11-27] MEDS: levETIRAcetam 100 MG/ML ORASYR GT SCH ×3 (06:30→21:11)
[2019-11-27] MEDS: BLOOD GLUCOSE MONITORING 1 DEV DEV FS SCH ×4 (06:42→21:11)
[2019-11-27 06:44] LABS: BASOPHILS % (AUTO) 0.3 % (0.0-2.0); EOSINOPHILS % (AUTO) 0.3 % (0.0-4.0); HEMATOCRIT 28.1 % (36-52); HEMOGLOBIN 9.2 g/dL (12.0-18.0); LYMPHOCYTES # (AUTO) 1.2 K/uL (2.0-11.5); LYMPHOCYTES % (AUTO) 7.4 % (20.5-51.1); MEAN CORPUSCULAR HEMOGLOBIN 29 pg (27-31); MEAN CORPUSCULAR HGB CONC 33 g/dL (33-37); MEAN CORPUSCULAR VOLUME 89.9 fL (80-94); MONOCYTES # (AUTO) 1.1 K/uL (0.8-1.0); MONOCYTES % (AUTO) 7.2 % (1.7-9.3); NEUTROPHILS # (AUTO) 13.1 K/uL (1.8-7.7); NEUTROPHILS % (AUTO) 84.8 % (42.2-75.2); PLATELET COUNT (AUTO) 320 K/uL (140-450); RED BLOOD CELL COUNT(AUTO) 3.13 MIL/uL (4.20-6.10); RED CELL DISTRIBUTION WIDTH 16.2 % (11.6-13.7); WHITE BLOOD COUNT (AUTO) 15.5 K/uL (4.8-10.8)
[2019-11-27] MEDS: INSULIN LISPRO SLIDING SCALE 100 UNITS/ML VIAL SUBQ PRN ×3 (06:44→21:12)
[2019-11-27 07:27] LABS: ANION GAP 16.3 (8-16); CARBON DIOXIDE 25.1 mmol/L (21-32); CHLORIDE 102 mmol/L (98-107); POTASSIUM 4.4 mmol/L (3.5-5.1); SODIUM SERUM 139 mmol/L (136-145); UREA NITROGEN, BLOOD 33 mg/dL (7-18)
--- NOTE | 2019-11-27 07:35 | NUR ---
PATIENT REMAINS THE SAME, NOT IN ANY RESPIRATORY DISTRESS. ENDORSED TO AM SHIFT RN FOR CONTINUITY OF CARE. ALSO MENTIONED THAT PATIENT HAS NO IV SITE.
--- NOTE | 2019-11-27 07:38 | NUR ---
RECEIVED REPORT FROM [employer] ATTENDANT RN FOR CONTINUITY OF CARE. PT IS AAOX0, APHASIC AND DOES NOT COMPREHEND WHEN SPOKEN TO. PT ON 28% O2 VIA TRACH TO T-PIECE. SKIN NON-INTACT/ PT HAS SACRAL OPEN WOUND. PICTURES TAKEN AND PLACED IN CHART. WOUND CONSULT PENDING FOR WOUND EVALUATION FOR CARE. PT HAS NO IV SITE. TO ORDER PICC LINE. ALL SAFETY MEASURES IN PLACE. WILL ROUND FREQUENTLY ON PT THROUGHOUT THE SHIFT.
[2019-11-27 08:00] VITALS: BP 138/72
[2019-11-27] MEDS: metFORMIN 500 MG TAB GT SCH (09:00)
[2019-11-27] MEDS: INSULIN LANTUS 100 UNITS/ML 10 ML VIAL SUBQ SCH (09:00)
[2019-11-27 09:01] LABS: MAGNESIUM 1.9 mg/dL (1.8-2.4); PHOSPHORUS 2.8 mg/dL (2.5-4.9)
--- NOTE | 2019-11-27 09:16 | NUR ---
ADMIN MORNING MEDS. PT TOLERATED WELL. PT NPO FOR PROCEDURE LATER TODAY FOR CYSTOSCOPY. BRIGHT RED HEMATURIA NOTED COMING FROM [facility]. [facility] ALSO LEAKING. DR. UNGER AWARE.
[2019-11-27 09:24] LABS: GLUCOSE 404 mg/dL (74-106)
--- NOTE | 2019-11-27 09:39 | NUR ---
WOUND CARE EVALUATION NOTE: REASON FOR EVALUATION: LOW MARIA ELENA SCALE AND PRESSURE ULCER WOUND SKIN ASSESSMENT DONE WITH THIS 74Y/O MALE PT AD[place] [facility] [place] [facility] WITH INITIAL DX URINARY RETENTION WITH HEMATURIA . PAST MEDICAL HX INCLUDES CVA, DM, BPH, CARDIAC DISEASE, DYSPHAGIA S/P G-TUBE PLACEMENT AND CONSTIPATION. ALL ABOVE INFORMATION OBTAINED FROM ADMISSION H&P. PT SKIN IS WARM AND DRY, BLE HAIR NO GROWTH, NO EDEMA. DORSAL PEDAL PULSES PRESENT AND NORMAL. CAPILLARY REFILLED < 2 SEC. X 10 TOES. INCONTINENT OF BOWEL. F/C PATENT WITH MODERATE AMOUNT HEMATURIA OUTPUT OBSERVED. PLAN OF CARE DISCUSSED WITH PRIMARY RN. INTEGUMENTARY: -TRACH SITE JAIDA STOMA SKIN DRY AND CLEAN. SKIN INTACT. -GT SITE JAIDA STOMA WITH SKIN INTACT. -INCONTINENT ASSOCIATE DERMATITIS (IAD) TO: B/L GROINS ,SCROTAL AREA, SKIN REDNESS -PRESSURE ULCER INJURY UN-STAGEABLE, SACROCOCCYX 3X5CM, WOUND BED 50% OF BROWN SCABS/SLOUGH TISSUE, 50 % PALE PINK TISSUE, SMALL AMOUNT SEROUS DRAINAGE, WOUND EDGE FLAT WITH JAIDA-WOUND SKIN MOIST AND SURROUNDING REDNESS INDICATED FURTHER DAMAGE. -RIGHT AND LEFT HEELS BLANCHABLE REDNESS RECOMMENDATIONS: -APPLY HYDRAGUARD TO R/L GROINS AND SCROTAL AREA BID AND PRN IF SOILING -CLEANSE SACRALCOCCYX WITH WOUND CLEANSING SOLUTION AND APPLY THERAHONEY GEL COVER WITH FOAM DRESSING QD AND PRN IF SOILING -OFFLOAD BILATERAL HEELS BY PLACING PILLOWS UNDER CALVES UNLESS OTHERWISE CONTRAINDICATED -PRESSURE REDISTRIBUTION SURFACE THERAPY -TURN AND REPOSITION Q2H, OFFLOAD SACRALCOCCYX AND BUTTOCKS BY TURNING RIGHT AND LEFT -CONTINUE TO FOLLOW RD RECOMMENDATIONS ALL ABOVE RECOMMENDATIONS DISCUSSED WITH PRIMARY RN AND DR VELA PLEASE CONTACT WOUND CARE NURSE FOR ANY QUESTION AND CHANGE OF WOUND CONDITION.
[2019-11-27] MEDS: POLYETHYLENE GLYCOL 17 GM/PKT GT SCH (10:17)
[2019-11-27] MEDS: DIGOXIN 0.125 MG TAB GT SCH (10:17)
[2019-11-27] MEDS: SENNA 8.6 MG TAB GT SCH (10:17)
[2019-11-27] MEDS: ATORVASTATIN 20 MG TAB PO SCH (10:17)
[2019-11-27] MEDS: DOXAZOSIN 2 MG TAB GT SCH (10:17)
[2019-11-27] MEDS: ACETAMINOPHEN 325 MG TAB PO PRN (10:17)
--- NOTE | 2019-11-27 10:48 | NUR ---
PT TAKEN TO OR FOR PROCEDURE. ALL NEEDS CURRENTLY MET. PT IN STABLE CONDITION AT THIS TIME.
[2019-11-27] MEDS ORDERED: HYDRAGUARD CREAM TP PRN (10:55)
[2019-11-27] MEDS ORDERED: INSULIN REGULAR, HUMAN 100 UNIT/ML VIAL SUBQ SCH (11:00)
[2019-11-27] MEDS: THERAHONEY GEL 42.5 GM TP SCH (13:00)
[2019-11-27] MEDS: HYDRAGUARD CREAM TP SCH (13:00)
--- NOTE | 2019-11-27 13:09 | NUR ---
PT RETURNED FROM OR. IN STABLE CONDITION. PT HAS IRRIGATION POMPA IN PLACE. WILL FOLLOW MD ORDERS FOR USE AND CARE.
--- NOTE | 2019-11-27 15:20 | NUR ---
PT RESTING IN BED. ALL NEEDS MET. IRRIGATION POMPA STILL RUNNING WELL.
[2019-11-27 16:00] VITALS: BP 124/58
--- NOTE | 2019-11-27 16:44 | NUR ---
DC PLANNIN YRS OLD MALE PATIENT WAS ADMITTED FROM [facility] [place] WITH A DX OF SEPTIC SHOCK DUE TO UTI . PT HAS A HX OF CVA , SEIZURE DISORDER S/P LEFT SIDED CRANIOTOMY DM AND BPH , G-TUBE , TRACH TO T BAR. BLOOD AND URINE CULTURE PENDING. COVID TEST PENDING. STARTED IVF, IV ABX ZOSYN . GI CONSULT FOR G-TUBE MALFUNCTION PULMO AND UROLOGY CONSULT DC PLANNING TO GO BACK TOP [facility] [place] WHEN STABLE CM TO FOLLOW. Addendum: 11/30/19 at 1135 by Zabrina Cano CM DC PLANNING: PT HAS A DC ORDER TO GO BACK TO [facility] [place] FAXED ALL THE PAPERWORK CAN GO TO ROOM 3C PER RN PT HAS FEVER AND FIO2 IS 60% DELLA CARMONA WILL NOTIFY AND FOLLOW UP. Addendum: 11/30/19 at 1146 by Zabrina Cano CM DC PLANING: PER PT IS NOT STABLE FOR TRANSFER TODAY . CM TO FOLLOW Addendum: 11/30/19 at 1241 by Melanie Bustamante CM FAXED PATIENTS PACKET TO [facility]. WILL FOLLOW UP Addendum: 12/01/19 at 1427 by Katalina Hayward TRANSFERRED TO ICU AT 0255 12/01/2019. TRACH TO VENT- FIO2 100%, O2 SAT 100%. ON LEVOPHED AND VASOPRESSIN DRIPS. CURRENT LABS INCLUDE WBC 14.7, H/H 6.8/22.8, NA/K 161/5.3, BUN/CREA 40/1.2, LACTIC ACID 10.2, FIBRINOGEN 753. COVID NEGATIVE X2. ON ZOSYN, MEROPENEM AND VANCO. ID, PULMO, CARDIO AND UROLOGY CONSULTS IN PLACE. Addendum: 12/02/19 at 1554 by Katalina Hayward TEMP RANGES FROM 99.2-103.2. ID REORDERED BLOOD, SPUTUM AND URINE CS. HEAD CT IS STILL PENDING. FOLLOWED UP WITH PRIMARY RN DAYAMI. PER DAYAMI IN THE PROCESS OF TAKING THE PATIENT TO CT. NA/K 155/3.2, BUN/CREA 50/1.3. URO, CARDIO, PULMO CONSULTS IN PLACE. Addendum: 12/05/19 at 1205 by Zabrina Cano CM DC PLANNING SEEN BY DR YRN ROSA ORDERED C-DIFF NEGATIVE , ID , UROLOGIST CONTINUE CURRENT THERAPY ABX VANCOMYCIN IV. PER DR HERRERA PT IS NOT STABLE TO BE DISCHARGED CM TO FOLLOW.
--- NOTE | 2019-11-27 16:49 | NUR ---
PT DESATING TO 82%. RT CALLED AND HE PLACED PT ON 40% O2 @ 10L/MIN. PT SATING 94% NOW. WILL CONTINUE TO ASSESS PT CLOSELY.
--- NOTE | 2019-11-27 18:57 | NUR ---
WILL ENDORSE PT TO CORPORATE COMPLIANCE MANAGER FOR CONTINUITY OF CARE. PT IN STABLE CONDITION AT THIS TIME.
--- NOTE | 2019-11-27 19:20 | NUR ---
RECEIVED BEDSIDE REPORT FROM AM SHIFT RN FOR PT'S CONTINUITY OF CARE. PT IS APHASIC, AAOX0, IS ON DRAFTER GEOLOGICAL, HAS TRACH TO TBAR WITH 40% AT 10L, HAS GTUBE FOR FEEDING, HAS CONTINUOUS POMPA IRRIGATION. PENDING FOR MIDLINE INSERTION. PT ON ISOLATION FOR PUI, 1ST COVID TEST NEGATIVE. ISOLATION PRECAUTION AND SAFETY MEASURES IN PLACE. WILL MONITOR PT THROUGHOUT SHIFT.
[2019-11-27 20:00] VITALS: BP 121/59
[2019-11-27] MEDS: FAMOTIDINE 20 MG TAB GT SCH (21:11)
--- NOTE | 2019-11-27 21:11 | NUR ---
ADMINISTERED SCHEDULED MEDICATIONS ORDERED. PT TOLERATED IT WELL. GTUBE PATENT AND INTACT, AUSCULTATED FOR PLACEMENT, 30ML RESIDUAL ASPIRATED. CONTINUOUS IRRIGATION POMPA CATH IN PLACE, AND PATENT. PT MADE COMFORTABLE. WILL CONTINUE TO MONITOR PT.
--- NOTE | 2019-11-27 21:39 | NUR ---
RECEIVED PT ON 10L COOL AERO PT TOLERATING WELL WATER WAS REPLACED
[2019-11-28] VITALS: BP 133/73
--- NOTE | 2019-11-28 | NUR ---
ADMINISTERED SCHEDULED MEDICATION ORDERED. PT TOLERATED IT WELL. PT HAD BM, LOOSE IN CONSISTENCY AND BROWN IN COLOR. PT CHANGED, REPOSITIONED, AND MADE COMFORTABLE. WOUND ASSESSMENT AND CARE DONE, DRESSING CHANGED, NO DRAINAGE NOTED. ORAL CARE AND POMPA CATH CARE GIVEN. CONTINUOUS IRRIGATION POMPA IN PLACE AND PATENT. WILL CONTINUE TO MONITOR PT.
[2019-11-28] MEDS: DILTIAZEM 60 MG TAB GT SCH ×4 (00:33→18:03)
[2019-11-28] MEDS: NACL 0.9% 1,000 ML IV SCH ×2 (00:34→15:47)
[2019-11-28] MEDS: HYDRAGUARD CREAM TP SCH ×2 (01:08→12:58)
--- NOTE | 2019-11-28 02:30 | NUR ---
NOTIFIED BY LAB THAT PT IS POSITIVE OF GRAM NEGATIVE RODS IN BLOOD CULTURE. WILL NOTIFY
[2019-11-28 04:00] VITALS: BP 132/60
--- NOTE | 2019-11-28 04:30 | NUR ---
ADMINISTERED SCHEDULED MEDICATIONS ORDERED. PT REPOSITIONED AND MADE COMFORTABLE. PT TOLERATED IT WELL. WILL CONTINUE TO MONITOR PT.
[2019-11-28] MEDS: BLOOD GLUCOSE MONITORING 1 DEV DEV FS SCH ×4 (05:30→21:26)
[2019-11-28] MEDS: INSULIN LISPRO SLIDING SCALE 100 UNITS/ML VIAL SUBQ PRN ×4 (05:31→21:50)
[2019-11-28] MEDS: ACETAMINOPHEN 325 MG TAB PO PRN (05:33)
[2019-11-28] MEDS: PIPERACILLIN/TAZOBACTAM 3.375 GM in DEXTROSE 5% 50 ML IV SCH ×3 (05:33→21:25)
[2019-11-28] MEDS: levETIRAcetam 100 MG/ML ORASYR GT SCH ×3 (05:33→21:26)
--- NOTE | 2019-11-28 06:30 | NUR ---
PT TEMP WENT DOWN TO 99.4. SUCTIONED PT, SCANT WHITE MUCOUS SECRETION SUCTIONED. PT MADE COMFORTABLE. PT SHOWS NO SIGNS OF DISTRESS OR DISCOMFORT. WILL ENDORSE TO AM SHIFT RN FOR PT'S CONTINUITY OF CARE.
--- NOTE | 2019-11-28 06:35 | NUR ---
TRACH CARE COMPLETED
[2019-11-28 07:04] LABS: BASOPHILS # (AUTO) 0.1 K/uL (0.00-0.22); BASOPHILS % (AUTO) 0.4 % (0.0-2.0); EOSINOPHILS # (AUTO) 0.1 K/uL (0-0.4); EOSINOPHILS % (AUTO) 0.5 % (0.0-4.0); HEMOGLOBIN 7.7 g/dL (12.0-18.0); LYMPHOCYTES # (AUTO) 1.3 K/uL (2.0-11.5); LYMPHOCYTES % (AUTO) 9.3 % (20.5-51.1); MEAN CORPUSCULAR HEMOGLOBIN 29 pg (27-31); MEAN CORPUSCULAR HGB CONC 32 g/dL (33-37); MEAN CORPUSCULAR VOLUME 90.7 fL (80-94); MONOCYTES # (AUTO) 1.1 K/uL (0.8-1.0); MONOCYTES % (AUTO) 7.9 % (1.7-9.3); NEUTROPHILS # (AUTO) 11.5 K/uL (1.8-7.7); NEUTROPHILS % (AUTO) 81.9 % (42.2-75.2); PLATELET COUNT (AUTO) 244 K/uL (140-450); RED BLOOD CELL COUNT(AUTO) 2.64 MIL/uL (4.20-6.10); RED CELL DISTRIBUTION WIDTH 16.6 % (11.6-13.7)
[2019-11-28 07:06] LABS: ANION GAP 11.9 (8-16); CARBON DIOXIDE 31.7 mmol/L (21-32); CHLORIDE 106 mmol/L (98-107); CREATININE 0.8 mg/dL (0.6-1.3); GLUCOSE 371 mg/dL (74-106); POTASSIUM 3.6 mmol/L (3.5-5.1); SODIUM SERUM 146 mmol/L (136-145); UREA NITROGEN, BLOOD 25 mg/dL (7-18)
--- NOTE | 2019-11-28 07:25 | NUR ---
RECEIVED BEDSIDE SHIFT REPORT FROM MINE BOSS NURSE FOR CONTINUATION OF CARE.
[2019-11-28 07:26] LABS: MAGNESIUM 1.9 mg/dL (1.8-2.4)
[2019-11-28 08:00] VITALS: BP 122/50
[2019-11-28] MEDS: ZINC SULF 220 MG CAP PO SCH (09:23)
[2019-11-28] MEDS: ASCORBIC ACID 500 MG TAB PO SCH (09:23)
[2019-11-28] MEDS: INSULIN LANTUS 100 UNITS/ML 10 ML VIAL SUBQ SCH (09:24)
--- NOTE | 2019-11-28 09:46 | NUR ---
INSULIN LANTUS GIVEN, BLOOD SUGAR CHECKED. ROUTINE MEDS GIVEN VIA GTUBE. OBSERVED CHEST RISE AND FALL. CONTINUOUS IRRIGATION RUNNING. WILL CONTINUE TO MONITOR.
[2019-11-28] MEDS ORDERED: MORPHINE SULFATE 2 MG/ML SYR IVP PRN (10:05)
[2019-11-28] MEDS ORDERED: ZOLPIDEM 10 MG TAB PO PRN (10:05)
[2019-11-28] MEDS ORDERED: POTASSIUM CHLORIDE 10 MEQ TABER PO PRN (10:05)
[2019-11-28] MEDS ORDERED: ONDANSETRON 4 MG/2 ML VIAL IVP PRN (10:05)
[2019-11-28] MEDS ORDERED: MAG SULF 2000 MG/WATER PREMIX 50 ML IV PRN (10:05)
[2019-11-28] MEDS ORDERED: DOCUSATE SODIUM 100 MG GELCAP PO PRN (10:05)
[2019-11-28] MEDS ORDERED: LORazepam 2 MG/ML VIAL IVP PRN (10:05)
[2019-11-28] MEDS ORDERED: POTASSIUM PHOSPHATE 15 MM in NACL 0.9% 250 ML IV SCH (11:00)
[2019-11-28 12:00] VITALS: BP 126/55
--- NOTE | 2019-11-28 12:03 | NUR ---
BLOOD SUGAR 300, 6 UNITS OF HUMALOG INSULIN GIVEN. TOLERATED WELL. TUBE FEEDING REPLACED AND CONTINUED AT 70 ML/HR. WILL CONTINUE TO MONITOR.
--- NOTE | 2019-11-28 12:05 | NUR ---
11/28/19 RD FOLLOW UP COMPLETED PLEASE REFER TO NUTRITION ASSESSMENT UNDER CARE ACTIVITY FOR ESTIMATED NUTRITIONAL NEEDS. 1.CONTINUE GLUCERNA 1.2 @ 70ML/HR. START AT 20 ML/HR, INCREASE BY 20 ML/HR Q6H -THIS WILL PROVIDE 1352 ML OF WATER, 2016 CALORIES AND 101 GM OF PROTEIN. 2. CONTINUE 105 ML Q4H FREE WATER FLUSH 3. CONTINUE ZINC AND VIT C FOR WOUND HEALING 4. RD TO FOLLOW-UP 2-3 DAYS, HIGH RISK CHIRAG REED RD
[2019-11-28] MEDS: THERAHONEY GEL 42.5 GM TP SCH (12:58)
[2019-11-28 15:11] LABS: FERRITIN 180 ng/mL (30-400); LACTATE DEHYDROGENASE 159 IU/L (121-224)
[2019-11-28 16:00] VITALS: BP 123/62
--- NOTE | 2019-11-28 16:34 | NUR ---
BLOOD SUGAR 347. 6 UNITS OF HUMALOG GIVEN, TOLERATED WELL. EMPTIED 2750 CC'S OF STRAW COLORED URINE. WILL CONTINUE TO MONITOR.
--- NOTE | 2019-11-28 19:25 | NUR ---
BEDSIDE SHIFT REPORT GIVEN TO DISTRIBUTOR SALES MANAGER NURSE FOR CONTINUATION OF CARE.
[2019-11-28 20:00] VITALS: BP 127/50
--- NOTE | 2019-11-28 20:00 | NUR ---
RECEIVED REPORT EARLIER FROM DAY RN. RECEIVED PT LAYING IN BED,EYES OPEN. PT IS NON VERBAL, TRACHE TO TBAR, ON 9L O2, SATING 99%. NO S/SX OF DISTRESS NOTED. VSS, FEBRILE 102.5.WILL START COOLING MEASURE AND WILL REASSESS THE PATIENT TEMPERATURE.ST ON MANAGER NEONATAL, HR-111.IVF INFUSING ORDERED. GTUBE FEEDING INFUSING ORDERED. PT ON CBI EARLIER AND WAS DC/D BY THE DAY RN BRYANNA. POMPA DRAINING YELLOW URINE,NO BLOOD OR CLOTS NOTED. CALL LIGHT WITHIN REACH. WILL CONTINUE POC.
[2019-11-28] MEDS: FAMOTIDINE 20 MG TAB GT SCH (21:26)
--- NOTE | 2019-11-28 22:00 | NUR ---
GAVE ALL THE SCHEDULED MEDICATIONS ORDERED. PT BLOOD SUGAR IS 330, GAVE 8 UNITS HUMALOG PER SSI. WILL CONTINUE POC AND MONITORING. REPOSITIONED THE PT FOR COMFORT AND TO PREVENT MORE SKIN BREAKDOWN.
[2019-11-29] VITALS: BP 137/57
--- NOTE | 2019-11-29 | NUR ---
VITAL SIGNS STABLE. PT STILL HAVE 100.0 TEMP, PRN TYLENOL GIVEN AND COOLING MEASURE PROVIDED. WILL REASSESS PT LATER.
[2019-11-29] MEDS: HYDRAGUARD CREAM TP SCH ×2 (00:41→12:51)
[2019-11-29] MEDS: DILTIAZEM 60 MG TAB GT SCH ×4 (00:43→18:11)
[2019-11-29] MEDS: ACETAMINOPHEN 325 MG TAB PO PRN ×2 (00:45→08:46)
[2019-11-29] MEDS: NACL 0.9% 1,000 ML IV SCH (00:52)
--- NOTE | 2019-11-29 01:51 | NUR ---
MOVED PT TO A DIFFERENT ROOM 106B. REPOSITIONED THE PT. HOB ELEVATED AT ALL TIMES TO PREVENT ASPIRATION.
[2019-11-29 04:00] VITALS: BP 143/66
--- NOTE | 2019-11-29 04:00 | NUR ---
PT VITAL SIGNS STABLE, STILL FEBRILE 100.2, COOLING MEASURE PROVIDED.SATING 100% ON 9L TRACH TO T BAR.HOB ELEVATED TO PREVENT ASPIRATION.WILL CONTINUE POC.
[2019-11-29] MEDS: levETIRAcetam 100 MG/ML ORASYR GT SCH ×3 (04:26→20:58)
[2019-11-29] MEDS: PIPERACILLIN/TAZOBACTAM 3.375 GM in DEXTROSE 5% 50 ML IV SCH ×2 (04:29→12:49)
[2019-11-29] MEDS: BLOOD GLUCOSE MONITORING 1 DEV DEV FS SCH ×4 (05:41→20:58)
[2019-11-29] MEDS: INSULIN LISPRO SLIDING SCALE 100 UNITS/ML VIAL SUBQ PRN ×4 (05:54→21:06)
--- NOTE | 2019-11-29 06:01 | NUR ---
TRACH CARE COMPLETED WATER REPLACED
--- NOTE | 2019-11-29 06:19 | NUR ---
NO ACUTE EVENTS THROUGHOUT THE NIGHT. NO SIGN AND SYMPTOMS OF DISTRESS NOTED. PT HAS NO COMPLAIN AT THIS TIME. ALL NEEDS ATTENDED. CALL LIGHT WITHIN REACH. WILL ENDORSE THE PT TO THE ONCOMING RN FOR CONTINUITY OF CARE.
--- NOTE | 2019-11-29 07:15 | NUR ---
RECEIVED REPORT FROM QUALITY ENG NURSE. PATIENT LYING DOWN IN BED. NO DISTRESS NOTED. FLACC 0. ON TRACH TO T-TUBE. AAOX1, APHASIC, SKIN COLOR APPROPRIATE TO ETHNICITY, WARM TO TOUCH. PER NIGHT RN, PATIENT HAS BEEN HAVING FEVERS. HAS SACRAL ULCER, DRESSING DRY AND INTACT. IV SITE INTACT, PATENT, AND INFUSING IVF PER MD ORDERS. REVIEWED PLAN OF CARE WITH PATIENT. UNABLE TO COMPREHEND. SAFETY MEASURES IN PLACE, CALL LIGHT WITHIN REACH. WILL CONTINUE TO MONITOR. Addendum: 11/29/19 at 0807 by Epifanio Dubois RN GTUBE SITE INTACT, PATENT, AND INFUSING GTUBE FEEDING PER MD ORDERS. POMPA CATHETER IN PLACE, DRAINING YELLOW, WITH SMALL AMOUNT HEMATURIA NOTED.
[2019-11-29 08:00] VITALS: BP 137/64
[2019-11-29] MEDS: POLYETHYLENE GLYCOL 17 GM/PKT GT SCH (08:45)
[2019-11-29] MEDS: ASCORBIC ACID 500 MG TAB PO SCH (08:45)
[2019-11-29] MEDS: DOXAZOSIN 2 MG TAB GT SCH (08:45)
[2019-11-29] MEDS: SENNA 8.6 MG TAB GT SCH (08:45)
[2019-11-29] MEDS: ZINC SULF 220 MG CAP PO SCH (08:45)
[2019-11-29] MEDS: ATORVASTATIN 20 MG TAB PO SCH (08:46)
[2019-11-29] MEDS: DIGOXIN 0.125 MG TAB GT SCH (08:46)
[2019-11-29] MEDS ORDERED: INSULIN LANTUS 100 UNITS/ML 10 ML VIAL SUBQ SCH (09:00)
--- NOTE | 2019-11-29 09:07 | NUR ---
PATIENT HAS A FEVER OF 103. TYLENOL AND OTHER SCHEDULED MEDICATIONS DUE GIVEN. COOLING MEASURES ALSO IN PLACE. WILL CONTINUE TO MONITOR.
[2019-11-29 10:29] LABS: BASOPHILS % (AUTO) 0.4 % (0.0-2.0); EOSINOPHILS % (AUTO) 0.2 % (0.0-4.0); HEMATOCRIT 23.7 % (36-52); HEMOGLOBIN 7.9 g/dL (12.0-18.0); LYMPHOCYTES # (AUTO) 0.7 K/uL (2.0-11.5); LYMPHOCYTES % (AUTO) 7.4 % (20.5-51.1); MEAN CORPUSCULAR HEMOGLOBIN 31 pg (27-31); MEAN CORPUSCULAR HGB CONC 33 g/dL (33-37); MEAN CORPUSCULAR VOLUME 91.4 fL (80-94); MONOCYTES # (AUTO) 0.7 K/uL (0.8-1.0); NEUTROPHILS # (AUTO) 8.2 K/uL (1.8-7.7); PLATELET COUNT (AUTO) 271 K/uL (140-450); RED BLOOD CELL COUNT(AUTO) 2.59 MIL/uL (4.20-6.10); RED CELL DISTRIBUTION WIDTH 16.6 % (11.6-13.7); WHITE BLOOD COUNT (AUTO) 9.6 K/uL (4.8-10.8)
[2019-11-29 11:19] LABS: ANION GAP 11.4 (8-16); CARBON DIOXIDE 32.5 mmol/L (21-32); CHLORIDE 110 mmol/L (98-107); CREATININE 0.7 mg/dL (0.6-1.3); GLUCOSE 373 mg/dL (74-106); POTASSIUM 3.9 mmol/L (3.5-5.1); SODIUM SERUM 150 mmol/L (136-145); UREA NITROGEN, BLOOD 22 mg/dL (7-18)
[2019-11-29 12:00] VITALS: BP 136/66
--- NOTE | 2019-11-29 12:41 | NUR ---
EXPORT FREIGHT MANAGER NOTE: Patient's Orientation Unable To Assess Information Provided By [facility] Anatomical Embalmer, Realtionship and Phone Number JEFFRY CHAPMAN [phone] Healthcare Power of Grazing Aide Yes Does Patient Have a POLST No Identifying Problems No Social Work Triggers Is A Social Work Consult Needed No Mandate Report Filed No Explanation Of Identifying Problems PATIENT IS A 74-YEAR-OLD MALE ADMITTED FOR SPETIC SHOCK. PATIENT HAS PMHX OF CVA, DM, BPH, DLD, AND DYSPHAGIA. [facility] - [phone] Pre-Admission Level Of Functioning Status Total Care Prior Resources/Services Used In Last 12 Months Subacute Prior DME No Prior DME Used Patient Had Caregiver No Home Support No Caregiver Issues Financial Issues No Known Financial Issue Referral To The Financial Counselor Needed No Factors/Needs Subacute Placement Explanation And Or Other Factors Affecting/Possible DC Needs PATIENT IS SUBACUTE/PRISON AND ON A BED HOLD. Discharge Plan Comments TENTATIVE DISCHARGE PLAN IS FOR PATIENT TO RETURN TO [facility]. DC Plan Status Initiated
[2019-11-29] MEDS: THERAHONEY GEL 42.5 GM TP SCH (12:51)
--- NOTE | 2019-11-29 12:51 | NUR ---
SCHEDULED MEDICATIONS DUE GIVEN. WILL CONTINUE TO MONITOR.
[2019-11-29 16:00] VITALS: BP 124/55
--- NOTE | 2019-11-29 18:11 | NUR ---
PATIENT LYING DOWN IN BED, NO DISTRESS NOTED. SCHEDULED MEDICATIONS DUE GIVEN. WILL CONTINUE TO MONITOR.
[2019-11-29] MEDS ORDERED: VANCOMYCIN PER PHARMACY MC PRN (18:55)
--- NOTE | 2019-11-29 19:15 | NUR ---
GAVE REPORT TO CAR REFINISHER NURSE FOR CONTINUITY OF CARE. PATIENT IN STABLE CONDITION.
[2019-11-29] MEDS ORDERED: VANCOMYCIN HCL 1,250 MG in NACL 0.9% 250 ML IV SCH (19:25)
--- NOTE | 2019-11-29 19:50 | NUR ---
RECEIVED REPORT FROM AM SHIFT. PT SEEN AND ASSESSED. PT ON COOL AEROSOL 30% @ 9L WITH SPO2 OF 95%. COARSE BS ON AUSCULTATION. PT IS IN NO APPARENT RESPIRATORY TX AT THIS TIME. WILL CONTINUE TO MONITOR PT.
[2019-11-29 20:00] VITALS: BP 138/62
--- NOTE | 2019-11-29 20:00 | NUR ---
RECEIVED REPORT EARLIER FROM DAY RN. RECEIVED PT LAYING IN BED, ASLEEP. PT IS NON VERBAL, TRACHE TO TBAR, ON 9L O2,FiO2-30% SATING 92%. NO S/SX OF DISTRESS NOTED. VSS, AFEBRILE 102.5. SR ON MANUFACTURING ENGINEER AUTOMOTIVE, HR- 97. IVF INFUSING ORDERED. GTUBE FEEDING INFUSING ORDERED. POMPA DRAINING YELLOW URINE,NO BLOOD OR CLOTS NOTED. CALL LIGHT WITHIN REACH. WILL CONTINUE POC. Addendum: 11/30/19 at 0118 by Ele Regalado RN RN CORRECTION PT IS AFEBRILE, TEMPERATURE IS 98.[address] MANUFACTURING ENGINEER AUTOMOTIVE, HR-113.
[2019-11-29] MEDS: FAMOTIDINE 20 MG TAB GT SCH (20:58)
[2019-11-29] MEDS: MEROPENEM 1,000 MG in NACL 0.9% 100 ML IV SCH (20:59)
[2019-11-29] MEDS: INSULIN NPH HUM/REG INSULIN HM 100 UNIT/ML 10 ML VIAL SUBQ SCH (21:01)
--- NOTE | 2019-11-29 21:23 | NUR ---
WATER FULL PT ON COOL AERO 9L 30% SPO2 94 HR 115 f 15 NO DISTRESS NOTED AT THIS TIME
--- NOTE | 2019-11-29 22:00 | NUR ---
GAVE ALL THE SCHEDULED MEDICATIONS ORDERED. PT BLOOD SUGAR IS 327, GAVE 8 UNITS HUMALOG PER SSI & HUMULIN 70/30, 10 UNITS ORDERED. WILL CONTINUE POC AND MONITORING. REPOSITIONED THE PT FOR COMFORT AND TO PREVENT SKIN BREAKDOWN.
--- NOTE | 2019-11-29 23:45 | NUR ---
FOUND PT SPO2 75% SPO2 PT WAS Sx AND DRAIN BAG WAS REPLACED DRAIN BAG WAS HANGING AND NOT ATTACHED TO BED PT SPO2 NOW 94% ON 60% AND 12 L
[2019-11-30] VITALS: BP 119/50
--- NOTE | 2019-11-30 | NUR ---
PT SPO2 75% TO 86% PT WAS SYMPTOMATIC AND DRAIN BAG WAS REPLACED BY R.T. DR MORA MADE AWARE AND CAME AND SEEN THE PT IN THE ROOM. MD VERBALIZED TO JUST KEEP AN EYE ON THE PT AND NO FURTHER ORDER GIVEN.PT SPO2 NOW 94% ON 60% AND 12 L. WILL CONTINUE TO MONITOR THE PT.
[2019-11-30] MEDS: DILTIAZEM 60 MG TAB GT SCH ×5 (00:28→23:55)
[2019-11-30] MEDS: HYDRAGUARD CREAM TP SCH ×2 (00:29→13:05)
--- NOTE | 2019-11-30 00:29 | NUR ---
PT TITRATED FROM 60% TO 40% COOL AERO SPO2 94% HR 124 RR 20 WILL CONTINUE TO MONITOR
--- NOTE | 2019-11-30 00:49 | NUR ---
SPO2 REMAINS AT 92% HR 120 f 22NON 40% COOL AERO Addendum: 11/30/19 at 0051 by Evan Mckeon Jr RT CORRECTION - f22 40% COOL AERO
[2019-11-30] MEDS: NACL 0.9% 1,000 ML IV SCH ×2 (02:40→19:20)
--- NOTE | 2019-11-30 02:52 | NUR ---
PT ASLEEP AT THIS TIME. VISIBLE CHEST RISE AND FALL NOTED.SATURATION 93% ON 40% FiO2 TRACH TO T BAR.NOT IN ANY DISTRESS AT THIS TIME. SAFETY MEASURES IN PLACED.
[2019-11-30 04:00] VITALS: BP 133/63
--- NOTE | 2019-11-30 04:00 | NUR ---
VSS, FEBRILE,TEMP-101.5 GAVE PRN TYLENOL THROUGH GT .WILL ENDORSE TO ONCOMING RN RE ASSESS TEMPERATURE LATER . SATING 96% ON 30% COOL AERO. ST WITH 1ST DEGREE AVB ON BOX CAR WASHER, HR-120. NO S/SX OF DISTRESS NOTED AT THIS TIME. HOB ELEVATED.
--- NOTE | 2019-11-30 04:57 | NUR ---
PT ON 30% COOL AERO SPO2 96% HR 120 f 24 TRACH CARE COMPLETED
[2019-11-30] MEDS: THERAHONEY GEL 42.5 GM TP PRN (05:31)
[2019-11-30] MEDS: levETIRAcetam 100 MG/ML ORASYR GT SCH ×3 (05:44→20:54)
[2019-11-30] MEDS: ACETAMINOPHEN 325 MG TAB PO PRN ×3 (05:44→20:38)
[2019-11-30] MEDS: INSULIN LISPRO SLIDING SCALE 100 UNITS/ML VIAL SUBQ PRN ×4 (05:48→20:56)
[2019-11-30] MEDS ORDERED: MEROPENEM 1,000 MG VIAL IV ONE (05:50)
[2019-11-30] MEDS: MEROPENEM 1,000 MG in NACL 0.9% 100 ML IV SCH ×3 (05:53→20:07)
[2019-11-30] MEDS: BLOOD GLUCOSE MONITORING 1 DEV DEV FS SCH ×4 (06:11→21:50)
--- NOTE | 2019-11-30 06:33 | NUR ---
NO ACUTE EVENTS THROUGHOUT THE NIGHT. NO SIGN AND SYMPTOMS OF DISTRESS NOTED. ALL NEEDS ATTENDED. CALL LIGHT WITHIN REACH. WILL ENDORSE THE PT TO THE ONCOMING RN FOR CONTINUITY OF CARE.
[2019-11-30 06:38] LABS: BASOPHILS % (AUTO) 0.6 % (0.0-2.0); EOSINOPHILS % (AUTO) 0.1 % (0.0-4.0); HEMATOCRIT 24.3 % (36-52); HEMOGLOBIN 7.9 g/dL (12.0-18.0); LYMPHOCYTES # (AUTO) 0.7 K/uL (2.0-11.5); LYMPHOCYTES % (AUTO) 9.7 % (20.5-51.1); MEAN CORPUSCULAR HEMOGLOBIN 30 pg (27-31); MEAN CORPUSCULAR HGB CONC 32 g/dL (33-37); MEAN CORPUSCULAR VOLUME 92.5 fL (80-94); MONOCYTES # (AUTO) 0.7 K/uL (0.8-1.0); MONOCYTES % (AUTO) 10.5 % (1.7-9.3); NEUTROPHILS # (AUTO) 5.5 K/uL (1.8-7.7); NEUTROPHILS % (AUTO) 79.1 % (42.2-75.2); PLATELET COUNT (AUTO) 261 K/uL (140-450); RED BLOOD CELL COUNT(AUTO) 2.63 MIL/uL (4.20-6.10); RED CELL DISTRIBUTION WIDTH 16.6 % (11.6-13.7)
[2019-11-30 07:13] LABS: CARBON DIOXIDE 35.3 mmol/L (21-32); CHLORIDE 116 mmol/L (98-107); CREATININE 0.8 mg/dL (0.6-1.3); GLUCOSE 388 mg/dL (74-106); POTASSIUM 4.8 mmol/L (3.5-5.1); UREA NITROGEN, BLOOD 30 mg/dL (7-18)
--- NOTE | 2019-11-30 07:15 | NUR ---
RECEIVED REPORT FROM GREEN CHAIN MARKER NURSE. PATIENT LYING DOWN IN BED. NO DISTRESS NOTED. FLACC 0. ON TRACH TO T-TUBE. AAOX1, APHASIC, SKIN COLOR APPROPRIATE TO ETHNICITY, WARM TO TOUCH. PER NIGHT RN, PATIENT HAD 1 FEVER LAST NIGHT. HAS SACRAL ULCER, DRESSING DRY AND INTACT. IV SITE INTACT, PATENT, AND INFUSING IVF PER MD ORDERS. REVIEWED PLAN OF CARE WITH PATIENT. UNABLE TO COMPREHEND. SAFETY MEASURES IN PLACE, CALL LIGHT WITHIN REACH. WILL CONTINUE TO MONITOR.
[2019-11-30 07:39] LABS: ANION GAP 8.5 (8-16); SODIUM SERUM 155 mmol/L (136-145)
[2019-11-30 08:00] VITALS: BP 117/54
[2019-11-30] MEDS: INSULIN NPH HUM/REG INSULIN HM 100 UNIT/ML 10 ML VIAL SUBQ SCH ×2 (08:46→20:55)
[2019-11-30] MEDS: ASCORBIC ACID 500 MG TAB PO SCH (08:49)
[2019-11-30] MEDS: SENNA 8.6 MG TAB GT SCH (08:49)
[2019-11-30] MEDS: ZINC SULF 220 MG CAP PO SCH (08:49)
[2019-11-30] MEDS: DIGOXIN 0.125 MG TAB GT SCH (08:49)
[2019-11-30] MEDS: DOXAZOSIN 2 MG TAB GT SCH (08:50)
[2019-11-30] MEDS: ATORVASTATIN 20 MG TAB PO SCH (08:50)
[2019-11-30] MEDS: POLYETHYLENE GLYCOL 17 GM/PKT GT SCH (08:52)
[2019-11-30] MEDS ORDERED: INSULIN LANTUS 100 UNITS/ML 10 ML VIAL SUBQ SCH (09:00)
--- NOTE | 2019-11-30 09:06 | NUR ---
SCHEDULED MEDICATIONS DUE GIVEN. WILL CONTINUE TO MONITOR.
[2019-11-30] MEDS: VANCOMYCIN 1,000 MG in DEXTROSE 5% 250 ML IV SCH ×2 (10:45→21:50)
--- NOTE | 2019-11-30 11:00 | NUR ---
ASSISTED E LEARNING DESIGNER IN CLEANING AND REPOSITIONING PATIENT. WOUND DRESSING STILL INTACT FROM 0500 CHANGE PER NIGHT RN. PATIENT TOLERATED WELL. WILL CONTINUE TO MONITOR.
[2019-11-30] MEDS ORDERED: VANC1PLA7 IV (11:03)
[2019-11-30] MEDS ORDERED: MERO1VIA13 IV (11:03)
[2019-11-30 12:50] VITALS: BP 117/53
--- NOTE | 2019-11-30 12:50 | NUR ---
V/S TAKEN, PATIENT HAS A 103 FEVER, COOLING MEASURES IN PLACE AND GAVE TYLENOL AT THIS TIME. WILL CONTINUE TO MONITOR.
[2019-11-30] MEDS: THERAHONEY GEL 42.5 GM TP SCH (13:05)
[2019-11-30] MEDS ORDERED: ALBUTEROL SULFATE/IPRATROPIU 3 ML SOL IH PRN (14:25)
[2019-11-30 16:00] VITALS: BP 103/49
--- NOTE | 2019-11-30 18:07 | NUR ---
SCHEDULED MEDICATIONS DUE GIVEN. WILL CONTINUE TO MONITOR.
--- NOTE | 2019-11-30 19:15 | NUR ---
GAVE REPORT TO BEHAVIOR ANALYST NURSE FOR CONTINUITY OF CARE. PATIENT IN STABLE CONDITION
--- NOTE | 2019-11-30 19:18 | NUR ---
RECEIVED PATIENT IN STABLE CONDITION FROM AM SHIFT NURSE FOR CONTINUITY OF CARE. TRACH TO TBAR. RESPIRATIONS EVEN, UNLABORED. NO S/S RESPIRATORY DISTRESS. FLACC 0. NO S/S ACUTE DISTRESS. SKIN WARM, DRY. MIDLINE TO UPPER LEFT ARM PATENT/INTACT, INFUSING FLUIDS WELL. ABDOMEN SOFT, NONTENDER, NONDISTENDED. CONTINUES ON ENTERAL FEEDING VIA GTUBE. NO RESIDUAL NOTED. HOB UP 30 DEGREES. POMPA CATHETER PATENT WITH LIGHT PINK URINE DRAINING TO GRAVITY. CALL LIGHT WITHIN REACH. SAFETY PRECAUTIONS IN PLACE. ISOLATION PRECAUTIONS OBSERVED BY ALL STAFF.
[2019-11-30 20:00] VITALS: BP 122/55
--- NOTE | 2019-11-30 20:38 | NUR ---
PATIENT HAD A TEMPERATURE OF 102.8 MEDICATED ORDERED. COOLING MEASURES IN PLACE.
[2019-11-30] MEDS: FAMOTIDINE 20 MG TAB GT SCH (20:54)
[2019-11-30] MEDS ORDERED: metroNIDAZOLE 500 MG/NS PREMIX 100 ML IV SCH (21:00)
--- NOTE | 2019-11-30 21:30 | NUR ---
RECHECKED TEMP 100.9, CONTINUE WITH COOLING MEASURES. NO S/S RESPIRATORY DISTRESS. NO S/S ACUTE DISTRESS. CALL LIGHT IN REACH.
[2019-11-30] MEDS ORDERED: KETOROLAC 30 MG/ML VIAL IVP ONE (23:30)
--- NOTE | 2019-11-30 23:45 | NUR ---
PATIENT NOTED WITH TEMP OF 102.8; MADE AWARE WITH NEW ORDER FOR ONE TIME DOSE OF KETORALAC.
[2019-11-30] MEDS ORDERED: KETOROLAC 30 MG/ML VIAL IVP SCH (23:55)
[2019-12-01] VITALS (89 sets, daily range): BP systolic 89–175; BP diastolic 34–75
--- NOTE | 2019-12-01 00:30 | NUR ---
RECHECKED TEMPERATURE AT 101.0. PATIENT HAS A LOW BP 90/34. MD AWARE WITH NEW ORDERS FOR NS BOLUS 500 ML. ORDERS NOTED AND CARRIED OUT.
[2019-12-01] MEDS: HYDRAGUARD CREAM TP SCH ×2 (00:40→13:00)
[2019-12-01] MEDS: NACL 0.9% 500 ML IV SCH ×2 (00:44→01:40)
[2019-12-01] MEDS ORDERED: NACL 0.9% 500 ML IV SCH (01:20)
--- NOTE | 2019-12-01 01:50 | NUR ---
2ND BOLUS OF NS GIVEN DUE TO LOW BP 90/38. CURRENT BP IS 96/39. HR 101. MD AWARE. WILL CONTINUE TO MONITOR PATIENT.
[2019-12-01] MEDS ORDERED: NOREPINEPHRINE 4 MG/4 ML VIAL IV ONE ×2 (02:27→07:41)
[2019-12-01] MEDS ORDERED: NOREPINEPHRINE 16 MG in DEXTROSE 5% 250 ML IV PRN (02:30)
--- NOTE | 2019-12-01 02:55 | NUR ---
RECEIVED THIS PATIENT FROM TELE UNIT AFTER HE WAS RESUSCITATED; PATIENT IS UNCONSCIOU; ON TRACH TO VENT; HOOKED TO INPATIENT AUDITOR SCOPE SHOWS ON SINUS RHYTHM HR 84/MIN. WITH LEVOPHED DRIP AT 5 MCG/MIN VIA MIDLINE ON LEFT ARM; INTACT. POMPA CATH IN PLACE DRAINING TO DEEP CHRISTIAN COLOR URINE OUTPUT.
--- NOTE | 2019-12-01 02:55 | NUR ---
PATIENT TRANSFERRED TO ICU. UNABLE TO REACH RESPONSIBLE [employer] BUT LEFT A MESSAGE TO CALL BACK REGARDING PATIENT'S CHANGE OF CONDITION.
--- NOTE | 2019-12-01 03:05 | NUR ---
PATIENT STARTED TO BECOME BRADYCARDEIC HR 42-50/MIN THEN WENT INTO COMPLETE HEART BLOCK; PUT ON TEMPORARY PACER WITH SET RATE OF 70/MIN. BUT LATER ON NO PULSE APPRECIATED; PT CODED, CPR STARTED; EMERGENCY MEDICATIONS GIVEN ORDERED SUCH EPINEPHRINE, SODIUM BICARBONATE AND CALCIUM GLUCONATE IV GIVEN AND PATIENT WAS REVIVED BUT BP IS LOW SBP 60-70 MMHG. LEVOPHED DRIP TITRATED UP TO MAXIMUM DOSE AND STARTED PATIENT ON VASOPRESSIN DRIP ORDERED.
[2019-12-01] MEDS ORDERED: VASOPRESSIN 20 UNITS/ML VIAL ONE (03:22)
[2019-12-01] MEDS ORDERED: VASOPRESSIN 20 UNITS in NACL 0.9% 250 ML IV SCH ×2 (04:10→08:05)
[2019-12-01] MEDS ORDERED: PIPERACILLIN/TAZOBACTAM 3.375 GM VIAL IV ONE (04:57)
[2019-12-01] MEDS: MEROPENEM 1,000 MG in NACL 0.9% 100 ML IV SCH ×3 (05:00→20:15)
[2019-12-01] MEDS: levETIRAcetam 100 MG/ML ORASYR GT SCH ×3 (05:00→20:15)
[2019-12-01] MEDS: PIPERACILLIN/TAZOBACTAM 3.375 GM in DEXTROSE 5% 50 ML IV SCH ×2 (05:00→13:00)
--- NOTE | 2019-12-01 05:30 | NUR ---
TURNED AND REPOSITIONED PATIENT.
[2019-12-01] MEDS: DILTIAZEM 60 MG TAB GT SCH (06:00)
[2019-12-01 06:07] LABS: LD5 FRACTION 9 % (4-20)
[2019-12-01 06:46] LABS: BASOPHILS # (AUTO) 0.1 K/uL (0.00-0.22); BASOPHILS % (AUTO) 0.4 % (0.0-2.0); EOSINOPHILS # (AUTO) 0.1 K/uL (0-0.4); EOSINOPHILS % (AUTO) 0.5 % (0.0-4.0); HEMATOCRIT 22.8 % (36-52); LYMPHOCYTES # (AUTO) 1.1 K/uL (2.0-11.5); LYMPHOCYTES % (AUTO) 7.3 % (20.5-51.1); MEAN CORPUSCULAR HEMOGLOBIN 29 pg (27-31); MEAN CORPUSCULAR HGB CONC 30 g/dL (33-37); MEAN CORPUSCULAR VOLUME 99.2 fL (80-94); MONOCYTES # (AUTO) 0.5 K/uL (0.8-1.0); MONOCYTES % (AUTO) 3.4 % (1.7-9.3); NEUTROPHILS % (AUTO) 88.4 % (42.2-75.2); PLATELET COUNT (AUTO) 313 K/uL (140-450); RED CELL DISTRIBUTION WIDTH 17.8 % (11.6-13.7); WHITE BLOOD COUNT (AUTO) 14.7 K/uL (4.8-10.8)
[2019-12-01 06:53] LABS: ANION GAP 18.6 (8-16); CARBON DIOXIDE 29.7 mmol/L (21-32); CHLORIDE 118 mmol/L (98-107); CREATININE 1.2 mg/dL (0.6-1.3); POTASSIUM 5.3 mmol/L (3.5-5.1); UREA NITROGEN, BLOOD 40 mg/dL (7-18)
[2019-12-01 07:13] LABS: HEMOGLOBIN 6.8 g/dL (12.0-18.0)
--- NOTE | 2019-12-01 07:30 | NUR ---
RECEIVED REPORT FROM SONYA HULL. PT. TRACH TO VENT . FIO2 100% IV. PIOO LINE LT UPPER ARM. ON LEVOPHED 30 NCG/MIN VASSOPRESSIN 0.01/MIN POMPA CATH DEAIN DARK CHRISTIAN URINE. GT TUBE CLAMP.
--- NOTE | 2019-12-01 07:30 | NUR ---
ENDORSED TO AM SHIFT RN MEGAN FOR CONTINUITY OF CARE.
--- NOTE | 2019-12-01 07:34 | NUR ---
rec'd pt on carescape vent settings pc 35 rr 30 itime 0.65 peep 10 fio2 100% alarms on and audible and bvm at hob and vent is plugged into red outlet sxn pt small amt of blood tint secretions, b\s are coarse bilaterally, pt is trach with portex 7 pt is resting
--- NOTE | 2019-12-01 07:45 | NUR ---
TEMP 101.4 TYLENOL 650 GIVEN GT, ,. ALEXANDRA AWARE.
[2019-12-01] MEDS: ACETAMINOPHEN 325 MG TAB PO PRN (08:01)
[2019-12-01] MEDS: DIGOXIN 0.125 MG TAB GT SCH (08:02)
[2019-12-01] MEDS: ASCORBIC ACID 500 MG TAB PO SCH (08:02)
[2019-12-01 08:17] LABS: GLUCOSE 495 mg/dL (74-106); SODIUM SERUM 161 mmol/L (136-145)
[2019-12-01] MEDS: ZINC SULF 220 MG CAP PO SCH (09:00)
[2019-12-01] MEDS: ATORVASTATIN 20 MG TAB PO SCH (09:00)
[2019-12-01] MEDS ORDERED: DEXTROSE 50% 50 ML SYR IVP PRN (09:10)
[2019-12-01] MEDS ORDERED: INSULIN REGULAR, HUMAN 100 UNIT in NACL 0.9% 100 ML IV SCH ×4 (09:10→12:15)
--- NOTE | 2019-12-01 09:20 | NUR ---
12/01/19 RD FOLLOW UP COMPLETED PLEASE REFER TO NUTRITION PROGRESS NOTE UNDER CARE ACTIVITY FOR ESTIMATED NUTRITION NEEDS. RD RECOMMENDATIONS: 1.CONTINUE GLUCERNA 1.2 @ 70ML/HR; SUFFICIENT TO MEET 100% PT ESTIMATED NUTRITIONAL NEEDS 2. CONTINUE 105 ML Q4H FREE WATER FLUSH 3. CONTINUE ZINC AND VIT C FOR WOUND HEALING 4. RD TO FOLLOW-UP 2-3 DAYS, HIGH RISK GISELE MUNIZ MBA, RD
[2019-12-01] MEDS: BLOOD GLUCOSE MONITORING 1 DEV DEV FS SCH ×15 (09:28→22:37)
[2019-12-01] MEDS: INSULIN LISPRO SLIDING SCALE 100 UNITS/ML VIAL SUBQ PRN (09:28)
[2019-12-01] MEDS: VANCOMYCIN 1,000 MG in DEXTROSE 5% 250 ML IV SCH ×2 (10:00→22:14)
[2019-12-01] MEDS ORDERED: POLYETHYLENE GLYCOL 17 GM/PKT GT PRN (10:40)
[2019-12-01 10:41] LABS: PROTHROMBIN TIME 11.4 secs (10.8-13.4)
[2019-12-01] MEDS ORDERED: SENNA 8.6 MG TAB GT PRN (10:50)
[2019-12-01] MEDS ORDERED: ACETAMINOPHEN EXTRA STRENGTH 500 MG TAB PO SCH (11:53)
[2019-12-01] MEDS ORDERED: diphenhydrAMINE 50 MG/ML VIAL IVP SCH (11:54)
--- NOTE | 2019-12-01 12:00 | NUR ---
FIRST UNIT OF BLOOD STARTED CHECK WITH GRICEL HULL .
--- NOTE | 2019-12-01 12:20 | NUR ---
TRASFUSION IN PROGRESS. TEMP I00.[address]IV[address] ORDER OF DR. VELA.
[2019-12-01] MEDS: THERAHONEY GEL 42.5 GM TP SCH (13:00)
--- NOTE | 2019-12-01 13:30 | NUR ---
the first unit of blood completed no sign of reaction noted. ivan cath dark hematuria.
[2019-12-01] MEDS ORDERED: levETIRAcetam 500 MG TAB ONE (14:28)
[2019-12-01 14:51] LABS: MAGNESIUM 1.9 mg/dL (1.8-2.4); PHOSPHORUS 1.6 mg/dL (2.5-4.9)
--- NOTE | 2019-12-01 15:05 | NUR ---
2nd unit of blood started.patient still has low grad fever de=dane delgado aware,
[2019-12-01 15:55] LABS: POTASSIUM 3.2 mmol/L (3.5-5.1); SODIUM SERUM 160 mmol/L (136-145)
[2019-12-01 15:56] LABS: ANION GAP 15.1 (8-16); CARBON DIOXIDE 31.1 mmol/L (21-32); CHLORIDE 117 mmol/L (98-107); GLUCOSE 382 mg/dL (74-106)
[2019-12-01 15:57] LABS: CREATININE 1.2 mg/dL (0.6-1.3); UREA NITROGEN, BLOOD 48 mg/dL (7-18)
--- NOTE | 2019-12-01 16:46 | NUR ---
PT HAVING BLOOD TRANSFUSION WILL ENDORSE VGB TO NOC SHIFT RN MEGAN NOTIFIED
--- NOTE | 2019-12-01 17:55 | NUR ---
2nd UNIT COMLLETED NO SIGN OF REACTION NOTED REMAIN HAVE HEMATURIA.
--- NOTE | 2019-12-01 19:30 | NUR ---
REPORT GIVED TO MUNA HULL.
--- NOTE | 2019-12-01 19:31 | NUR ---
REPORT RECEIVED FROM AM NURSE AT BEDSIDE. PT IN STABLE CONDITION. AAOX0. FLACC 0. NO SOB TRACH TO VENT. VENT SETTINGS AC P/C FIO2@100%, RR 30, PEEP 10, O2 SATURATION@84%. PT HAS A LOW GRADE FEVER@100.0. WILL MEDICATE. PT IS BEDBOUND. PT HAS GTUBE BUT IS CURRENTLY NPO. GTUBE PATENT AND INTACT. PT HAS POMPA DRAINING BEBO RED URINE. IV SITE R HAND 22G RUNNING INSULIN DRIP@0.1UNITS/HR OR 7.5ML/HR. L UA MIDLINE 1ST LUMEN RUNNING NS TKO PATENT AND INTACT. SECOND LUMEN RUNNING LEVO@3MCG/HR OR 2.77ML/HR AND VASOPRESSIN@0.01UNITS/HR OR 7.5ML/HR PATENT AND INTACT. SKIN WARM, DRY, AND NOT INTACT DUE TO A SACRAL WOUND. BED LOCKED IN LOW POSITION. CALL JORDAN WITHIN REACH. SAFETY PRECAUTION IN PLACE. ALL NEEDS MET AT THIS TIME.
--- NOTE | 2019-12-01 19:40 | NUR ---
LEVOPHED REDUCED FROM 3MCG/MIN TO 1MCG/MIN DUE TO INCREASED BP.
--- NOTE | 2019-12-01 20:10 | NUR ---
LEVOPHED HELD DUE TO INCREASED BP.
[2019-12-01] MEDS: FAMOTIDINE 20 MG TAB GT SCH (20:15)
--- NOTE | 2019-12-01 20:15 | NUR ---
KEPPRA AND PEPCID GIVEN THROUGH [facility]. PANCHO SOSA AND RUNNING. BS 149. PT CURRENTLY ON INSULIN DRIP. PER PROTOCOL DECREASE DRIP TO 0.05UNITS/HR OR 3.75ML/HR AND START D5 1/2NS@200ML/HR.
[2019-12-01 21:25] LABS: BASOPHILS # (AUTO) 0.1 K/uL (0.00-0.22); BASOPHILS % (AUTO) 1.3 % (0.0-2.0); EOSINOPHILS # (AUTO) 0.1 K/uL (0-0.4); HEMATOCRIT 26.4 % (36-52); HEMOGLOBIN 8.7 g/dL (12.0-18.0); LYMPHOCYTES % (AUTO) 10.2 % (20.5-51.1); MEAN CORPUSCULAR HEMOGLOBIN 29 pg (27-31); MEAN CORPUSCULAR HGB CONC 33 g/dL (33-37); MEAN CORPUSCULAR VOLUME 89.4 fL (80-94); MONOCYTES # (AUTO) 0.3 K/uL (0.8-1.0); MONOCYTES % (AUTO) 2.9 % (1.7-9.3); NEUTROPHILS # (AUTO) 8.1 K/uL (1.8-7.7); NEUTROPHILS % (AUTO) 84.6 % (42.2-75.2); PLATELET COUNT (AUTO) 222 K/uL (140-450); RED BLOOD CELL COUNT(AUTO) 2.95 MIL/uL (4.20-6.10); RED CELL DISTRIBUTION WIDTH 15.3 % (11.6-13.7); WHITE BLOOD COUNT (AUTO) 9.6 K/uL (4.8-10.8)
--- NOTE | 2019-12-01 21:30 | NUR ---
WU VIRUS EVIE TEST DONE FOR PATIENT.
[2019-12-01 21:51] LABS: ANION GAP 12.3 (8-16); CARBON DIOXIDE 31.4 mmol/L (21-32); CHLORIDE 121 mmol/L (98-107); GLUCOSE 162 mg/dL (74-106); UREA NITROGEN, BLOOD 48 mg/dL (7-18)
[2019-12-01 21:57] LABS: POTASSIUM 2.7 mmol/L (3.5-5.1); SODIUM SERUM 162 mmol/L (136-145)
--- NOTE | 2019-12-01 21:57 | NUR ---
CRITICAL LAB VALUES POTASSIUM 2.7. SODIUM 162. NOTIFIED. ORDERS RECEIVED.
[2019-12-01] MEDS ORDERED: DEXT 5% / NACL 0.45% 1,000 ML IV SCH (22:00)
[2019-12-01] MEDS ORDERED: MAG SULF 2000 MG/WATER PREMIX 50 ML IV SCH (22:00)
[2019-12-01] MEDS ORDERED: KCL 20 MEQ/WATER INJ PREMIX 200 ML IV SCH (22:00)
[2019-12-01 22:01] LABS: MAGNESIUM 1.8 mg/dL (1.8-2.4)
[2019-12-01 22:02] LABS: PHOSPHORUS 1.5 mg/dL (2.5-4.9)
--- NOTE | 2019-12-01 22:02 | NUR ---
BS 157. NOTIFIED. ORDERED TO STOP INSULIN DRIP IN 1 HOUR AND DECREASED D5 1/2NS TO 100ML/HR.
--- NOTE | 2019-12-01 22:14 | NUR ---
ZOHAIB SOSA AND JANESSA.
--- NOTE | 2019-12-01 22:34 | NUR ---
BS 162. PT STILL ON INSULIN DRIP.
--- NOTE | 2019-12-01 22:45 | NUR ---
VASOPRESSIN HELD DUE TO INCREASED BP.
--- NOTE | 2019-12-01 23:14 | NUR ---
PT OFF OF INSULIN DRIP PER MD ORDERS.
--- NOTE | 2019-12-01 23:40 | NUR ---
20:39 INITIAL FIO2 TITRATION FROM 100% TO 80 PT TOLERATED WELL I CONTINUED TO TITRATE FIO2 60% OF NOW PT TOLERATING WELL SPO2 100% I WILL CONTINUE MONITOR PT
[2019-12-02] VITALS (22 sets, daily range): BP systolic 94–134; BP diastolic 50–104
--- NOTE | 2019-12-02 00:28 | NUR ---
VBG WAS ORDERED AND ABG WAS DRAWN AND ENTERED INTO PT CHART I ASKED DOCTOR OF NATUROPATHIC MEDICINE FOR VBG AND SHE CRISS ABG DR CAUSEY IS AWARE AND WAS INFORMED OF RESULTS PH 7.665 CO2 25.2 HCO3 28.1 BE 7.7 PO2 205.3 SO2 98.9 Addendum: 12/02/19 at 0037 by Evan Mckeon Jr RT PER PRISCILLA CAUSEY I WILL TITRATE RATE TO 20 BREATH/MIN
[2019-12-02] MEDS: HYDRAGUARD CREAM TP SCH ×2 (00:59→13:00)
[2019-12-02 01:00] LABS: ANION GAP 14.7 (8-16); CARBON DIOXIDE 29.5 mmol/L (21-32); CHLORIDE 118 mmol/L (98-107); CREATININE 1.1 mg/dL (0.6-1.3); GLUCOSE 256 mg/dL (74-106); POTASSIUM 3.2 mmol/L (3.5-5.1); UREA NITROGEN, BLOOD 45 mg/dL (7-18)
[2019-12-02 01:05] LABS: MAGNESIUM 1.9 mg/dL (1.8-2.4); PHOSPHORUS 1.6 mg/dL (2.5-4.9)
[2019-12-02 01:06] LABS: SODIUM SERUM 159 mmol/L (136-145)
--- NOTE | 2019-12-02 01:45 | NUR ---
Fabio BRUSH HUNG AND RUNNING BAG 1 OF 2. PT TOLERATING WELL.
--- NOTE | 2019-12-02 03:00 | NUR ---
PT IN BED NO S/S OF DISTRESS NOTED. FLACC 0. NO SOB TRACH TO VENT.
--- NOTE | 2019-12-02 03:45 | NUR ---
K RIDER BAG 2 OF 2 HUNG AND RUNNING. PT TOLERATING WELL.
[2019-12-02] MEDS: levETIRAcetam 100 MG/ML ORASYR GT SCH ×3 (04:44→20:34)
[2019-12-02] MEDS: ACETAMINOPHEN 325 MG TAB PO PRN ×4 (04:44→23:58)
[2019-12-02] MEDS: MEROPENEM 1,000 MG in NACL 0.9% 100 ML IV SCH ×3 (04:44→20:34)
--- NOTE | 2019-12-02 04:44 | NUR ---
KEPPRA GIVEN THROUGH [employer]. PANCHO HUNG AND RUNNING. TYL GIVEN THROUGH [facility] FOR FEVER OF 103.2. PT TOLERATING WELL. Addendum: 12/02/19 at 0656 by Juan Mcmullen RN FEEDING STARTED@20ML/HR.
--- NOTE | 2019-12-02 05:00 | NUR ---
POMPA CARE DONE. ORAL CARE DONE.
--- NOTE | 2019-12-02 06:00 | NUR ---
RECHECKED TEMPERATURE. STILL FEBRILE. COOLING MEASURES APPLIED. ICE PACKS ON NECK AND AXILLARY.
[2019-12-02 06:27] LABS: HEMATOCRIT 25.7 % (36-52); HEMOGLOBIN 8.4 g/dL (12.0-18.0); MEAN CORPUSCULAR HEMOGLOBIN 30 pg (27-31); MEAN CORPUSCULAR HGB CONC 33 g/dL (33-37); MEAN CORPUSCULAR VOLUME 90.2 fL (80-94); PLATELET COUNT (AUTO) 191 K/uL (140-450); RED BLOOD CELL COUNT(AUTO) 2.85 MIL/uL (4.20-6.10); RED CELL DISTRIBUTION WIDTH 15.3 % (11.6-13.7); WHITE BLOOD COUNT (AUTO) 7.9 K/uL (4.8-10.8)
[2019-12-02] MEDS: BLOOD GLUCOSE MONITORING 1 DEV DEV FS SCH ×4 (06:37→20:33)
--- NOTE | 2019-12-02 06:37 | NUR ---
BS 298. 6 UNITS OF HUMALOG GIVEN.
[2019-12-02] MEDS: INSULIN LISPRO SLIDING SCALE 100 UNITS/ML VIAL SUBQ PRN ×4 (06:38→20:35)
[2019-12-02 06:56] LABS: MAGNESIUM 1.7 mg/dL (1.8-2.4); PHOSPHORUS 2.1 mg/dL (2.5-4.9)
[2019-12-02 07:00] LABS: ANION GAP 12.2 (8-16); CARBON DIOXIDE 30.4 mmol/L (21-32); CHLORIDE 120 mmol/L (98-107); GLUCOSE 311 mg/dL (74-106); POTASSIUM 3.6 mmol/L (3.5-5.1); UREA NITROGEN, BLOOD 47 mg/dL (7-18)
--- NOTE | 2019-12-02 07:21 | NUR ---
REPORT GIVEN TO AM NURSE AT BEDSIDE. PT IN STABLE CONDITION.
--- NOTE | 2019-12-02 07:22 | NUR ---
RECEIVED BEDSIDE REPORT FROM DIE CUTTER DIAMOND NURSE MUNA, PT STABLE, NO DISTRESS NOTED, APHASIC AT BASELINE, UNABLE TO LET NEEDS KNOWN. MIDLINE TO TATYANA PATENT, INTACT, INFUSING WELL, R HAND IV 22G PATENT INTACT, SL. TRACH TO VENT, ACPC FIO2 40%, PEEP 10, RR 20, NO SOB NOTED, BREATHING EQUAL BILATERALLY, POMPA CATH IN PLACE DRAINING TO GRAVITY, GT IN PLACE WITH FEEDINGS, INITIAL ASSESSMENT DONE, ALL SAFETY PRECAUTION MET, CALL LIGHT WITHIN REACH, WILL CONTINUE TO MONITOR.
[2019-12-02 07:30] LABS: SODIUM SERUM 159 mmol/L (136-145)
--- NOTE | 2019-12-02 08:50 | NUR ---
PT REMAINS ON DOCUMENTED SETTINGS, TRACH SECURED AND PATENT, NO DISTRESS NOTED AT THIS TIME. SX: THIN CLEAR TO YELLOW SECRETIONS. VENT PLUGGED INTO RED OUTLET, ALARMS ON AND FUNCTIONING, AMBU BAG AT BEDSIDE. COULD NOT GET ABG AT THIS TIME, WILL TRY AT A LATER TIME, WILL CONTINUE TO MONITOR.
[2019-12-02] MEDS: INSULIN LANTUS 100 UNITS/ML 10 ML VIAL SUBQ SCH (09:00)
[2019-12-02] MEDS: ASCORBIC ACID 500 MG TAB PO SCH (09:22)
[2019-12-02] MEDS: ZINC SULF 220 MG CAP PO SCH (09:22)
[2019-12-02] MEDS: SODIUM PHOS / POTASSIUM PHOS 1 PKT PDR PO SCH ×3 (09:22→17:17)
[2019-12-02] MEDS: ATORVASTATIN 20 MG TAB PO SCH (09:22)
[2019-12-02] MEDS: DIGOXIN 0.125 MG TAB GT SCH (09:23)
--- NOTE | 2019-12-02 09:23 | NUR ---
DUE MEDICATION ADMINISTERED, PT TOLERATED WELL, PT TEMPERATURE 100.9, TYLENOL GIVEN PER PRN ORDER. PT RESTING, WILL CONTINUE TO MONITOR.
[2019-12-02 09:31] LABS: MAGNESIUM 1.9 mg/dL (1.8-2.4); PHOSPHORUS 1.8 mg/dL (2.5-4.9)
[2019-12-02 09:35] LABS: ANION GAP 15.2 (8-16); CARBON DIOXIDE 28.2 mmol/L (21-32); CHLORIDE 117 mmol/L (98-107); CREATININE 1.3 mg/dL (0.6-1.3); POTASSIUM 3.4 mmol/L (3.5-5.1); UREA NITROGEN, BLOOD 47 mg/dL (7-18)
[2019-12-02 09:52] LABS: SODIUM SERUM 157 mmol/L (136-145)
[2019-12-02 09:53] LABS: GLUCOSE 433 mg/dL (74-106)
--- NOTE | 2019-12-02 10:11 | NUR ---
CHECKED ON PT, PT TEMP 102, COOLING MEASURE IN PLACE, NOTIFIED DR CARLIN, NO CHANGE IN ORDERS. WILL CONTINUE TO MONITOR.
[2019-12-02 10:42] LABS: BASOPHILS % (MANUAL) 0 % (0-2); EOSINOPHILS % (MANUAL) 0 % (0-4); LYMPHOCYTES % (MANUAL) 6 % (20-46); METAMYELOCYTES % 2 % (0-0); MONOCYTES % (MANUAL) 5 % (5-12)
[2019-12-02] MEDS: VANCOMYCIN 1,000 MG in DEXTROSE 5% 250 ML IV SCH ×2 (10:47→22:53)
[2019-12-02] MEDS: NACL 0.45% 1,000 ML IV SCH ×2 (10:48→23:06)
--- NOTE | 2019-12-02 11:45 | NUR ---
PT TEMP 100.1, COOLING MEASURE STILL IN PLACE, NO DISTRESS NOTED, CLEAN AND REPOSITIONED PT, PT TOLERATED WELL, WILL CONTINUE TO MONITOR.
[2019-12-02 12:34] LABS: ANION GAP 14.6 (8-16); CARBON DIOXIDE 26.6 mmol/L (21-32); CHLORIDE 117 mmol/L (98-107); CREATININE 1.3 mg/dL (0.6-1.3); GLUCOSE 364 mg/dL (74-106); POTASSIUM 3.2 mmol/L (3.5-5.1); SODIUM SERUM 155 mmol/L (136-145); UREA NITROGEN, BLOOD 50 mg/dL (7-18)
[2019-12-02 12:38] LABS: MAGNESIUM 1.6 mg/dL (1.8-2.4); PHOSPHORUS 1.4 mg/dL (2.5-4.9)
[2019-12-02] MEDS: THERAHONEY GEL 42.5 GM TP SCH (13:00)
[2019-12-02] MEDS ORDERED: POTASSIUM CHLORIDE 20% 40 MEQ/15 ML UDC PO PRN (13:18)
--- NOTE | 2019-12-02 13:32 | NUR ---
BLOOD SUGAR CHECKED, 301, 8 UNITS INSULIN PER PROTOCOL ADMINISTERED, PT TOLERATED WELL,
[2019-12-02] MEDS: FLUCONAZOLE 200 MG/NS PREMIX 100 ML IV SCH (15:31)
--- NOTE | 2019-12-02 16:05 | NUR ---
PT TAKEN TO CT FOR CT HEAD.
--- NOTE | 2019-12-02 16:20 | NUR ---
PT CAME BACK TO UNIT, STABLE, NO DISTRESS NOTED, WILL CONTINUE TO MONITOR.
--- NOTE | 2019-12-02 16:20 | NUR ---
PT REMAINS ON DOCUMENTED SETTINGS, TRACH IS SECURED AND PATENT, NO DISTRESS NOTED AT THIS TIME. VENT PLUGGED INTO RED OUTLET, ALARMS ON AND FUNCTIONING.
--- NOTE | 2019-12-02 16:46 | NUR ---
ABG RESULTS READ BACK TO DR. CARLIN. CHANGED FIO2 TO 50% AND SET RR TO [address] CARLIN
[2019-12-02] MEDS: THERAHONEY GEL 42.5 GM TP PRN (17:13)
--- NOTE | 2019-12-02 17:44 | NUR ---
PT DID A LARGE BM, CLEANED AND REPOSITIONED PT, PT TOLERATED WELL, WILL CONTINUE TO MONTIOR.
[2019-12-02 18:42] LABS: ANION GAP 12.9 (8-16); CARBON DIOXIDE 29.2 mmol/L (21-32); CHLORIDE 118 mmol/L (98-107); GLUCOSE 272 mg/dL (74-106); POTASSIUM 4.1 mmol/L (3.5-5.1); UREA NITROGEN, BLOOD 51 mg/dL (7-18)
[2019-12-02 18:43] LABS: MAGNESIUM 1.8 mg/dL (1.8-2.4); PHOSPHORUS 2.1 mg/dL (2.5-4.9)
[2019-12-02 18:45] LABS: SODIUM SERUM 156 mmol/L (136-145)
--- NOTE | 2019-12-02 19:26 | NUR ---
ENDORSED PT TO MILL OPERATOR NURSE FOR CONTINUOUS OF CARE.
--- NOTE | 2019-12-02 19:27 | NUR ---
REPORT RECEIVED FROM AM NURSE AT BEDSIDE. PT IN STABLE CONDITION. AAOX0. PT HAD CRANIOTOMY AND HAS A MIDLINE SHIFT. FLACC 0. NO SOB TRACH TO VENT. VENT SETTINGS AC P/C FIO2@50%, RR 16, PEEP 8, O2 SATURATION@98%. PT HAD FEVER THROUGHOUT THE DAY. WILL ASSESS AND GIVE TYL. PT IS BEDBOUND. PT HAS POMPA DRAINING DARK RED URINE. PT HAS GTUBE TO FEEDINGS. GLUCERNA 1.2 CURRENTLY@50ML/HR, GOAL IS 70ML/HR WITH 300ML WATER FLUSH Q4H PATENT AND INTACT. PT IS EDEMATOUS. IV SITE L UA MIDLINE DOUBLE LUMEN RUNNING 1/2NS@100ML/HR PATENT AND INTACT. SECOND LUMEN SL PATENT AND INTACT. R HAND 22G SL PATENT AND INTACT. SKIN WARM, DRY, AND NOT INTACT DUE TO A SACRAL WOUND. BED LOCKED IN LOW POSITION. CALL JORDAN WITHIN REACH. SAFETY PRECAUTION IN PLACE. ALL NEEDS MET AT THIS TIME.
[2019-12-02] MEDS: FAMOTIDINE 20 MG TAB GT SCH (20:34)
--- NOTE | 2019-12-02 20:34 | NUR ---
KEPPRA AND PEPCID GIVEN THROUGH [employer]. MERREM HUNG AND RUNNING. BS 204. 4 UNITS OF HUMALOG GIVEN. ORAL CARE DONE. RESIDUAL OF 50ML. PT TOLERATING FEEDING WELL.
--- NOTE | 2019-12-02 20:36 | NUR ---
RECEIVED PT ON PC P 35 Ti 0.8 R16 FIO2 50% AMBU BAG AT BEDSIDE VENT PLUGGED INTO RED OUTLET PT WAS Sx W/ SCANT AMT WHITE/BLOOD SPECK SECR. WILL CONTINUE TO MONITOR
--- NOTE | 2019-12-02 22:53 | NUR ---
ZOHAIB SOSA AND JANESSA.
[2019-12-02 23:03] LABS: ANION GAP 14.5 (8-16); CARBON DIOXIDE 26.5 mmol/L (21-32); CHLORIDE 117 mmol/L (98-107); CREATININE 1.1 mg/dL (0.6-1.3); GLUCOSE 222 mg/dL (74-106); SODIUM SERUM 154 mmol/L (136-145); UREA NITROGEN, BLOOD 48 mg/dL (7-18)
[2019-12-02 23:07] LABS: MAGNESIUM 1.8 mg/dL (1.8-2.4); PHOSPHORUS 2.4 mg/dL (2.5-4.9)
--- NOTE | 2019-12-02 23:58 | NUR ---
TYL GIVEN FOR LOW GRADE FEVER. PT TOLERATED WELL.
[2019-12-03] VITALS (17 sets, daily range): BP systolic 117–139; BP diastolic 52–62
[2019-12-03] MEDS: HYDRAGUARD CREAM TP SCH ×2 (00:03→13:05)
--- NOTE | 2019-12-03 02:15 | NUR ---
PT IN BED. NO S/S OF DISTRESS NOTED. FLACC 0. NO SOB TRACH TO VENT. AFEBRILE.
[2019-12-03] MEDS: levETIRAcetam 100 MG/ML ORASYR GT SCH ×3 (04:46→20:43)
[2019-12-03] MEDS: MEROPENEM 1,000 MG in NACL 0.9% 100 ML IV SCH ×3 (04:46→20:44)
--- NOTE | 2019-12-03 04:46 | NUR ---
EUGENIO GIVEN THROUGH [employer]. PANCHO HUNG AND RUNNING. PT TOLERATING WELL.
--- NOTE | 2019-12-03 05:00 | NUR ---
ORAL CARE DONE. POMPA CARE DONE. FEEDING CHANGED.
--- NOTE | 2019-12-03 05:20 | NUR ---
RECTAL TUBE APPLIED.
--- NOTE | 2019-12-03 06:01 | NUR ---
PT LEFT ON SETTINGS RECEIVED ON PC P35 TI 0.8 F 16 AMBU BAG AT BEDSIDE VENT PLUGGED IN TO RED OUTLET TRACH CARE COMPLETED
[2019-12-03 06:20] LABS: BASOPHILS # (AUTO) 0.1 K/uL (0.00-0.22); BASOPHILS % (AUTO) 0.6 % (0.0-2.0); EOSINOPHILS # (AUTO) 0.2 K/uL (0-0.4); EOSINOPHILS % (AUTO) 2.1 % (0.0-4.0); HEMATOCRIT 23.7 % (36-52); HEMOGLOBIN 7.7 g/dL (12.0-18.0); LYMPHOCYTES # (AUTO) 0.7 K/uL (2.0-11.5); MEAN CORPUSCULAR HEMOGLOBIN 30 pg (27-31); MEAN CORPUSCULAR HGB CONC 32 g/dL (33-37); MEAN CORPUSCULAR VOLUME 91.7 fL (80-94); MONOCYTES # (AUTO) 0.2 K/uL (0.8-1.0); MONOCYTES % (AUTO) 1.7 % (1.7-9.3); NEUTROPHILS # (AUTO) 8.8 K/uL (1.8-7.7); NEUTROPHILS % (AUTO) 88.6 % (42.2-75.2); PLATELET COUNT (AUTO) 161 K/uL (140-450); RED BLOOD CELL COUNT(AUTO) 2.58 MIL/uL (4.20-6.10); RED CELL DISTRIBUTION WIDTH 15.8 % (11.6-13.7)
[2019-12-03] MEDS: BLOOD GLUCOSE MONITORING 1 DEV DEV FS SCH ×4 (06:33→20:44)
[2019-12-03] MEDS: INSULIN LISPRO SLIDING SCALE 100 UNITS/ML VIAL SUBQ PRN ×3 (06:39→20:45)
--- NOTE | 2019-12-03 06:39 | NUR ---
BS 295. 6 UNITS OF HUMALOG GIVEN. PT TOLERATED WELL.
[2019-12-03 07:02] LABS: ANION GAP 11.7 (8-16); CARBON DIOXIDE 28.8 mmol/L (21-32); CHLORIDE 115 mmol/L (98-107); GLUCOSE 305 mg/dL (74-106); POTASSIUM 3.5 mmol/L (3.5-5.1); SODIUM SERUM 152 mmol/L (136-145); UREA NITROGEN, BLOOD 47 mg/dL (7-18)
--- NOTE | 2019-12-03 07:30 | NUR ---
RECEIVED BEDSIDE REPORT FROM PATIENT OFFICE REP NURSE MUNA RN, PT STABLE, AAOX0, APHASIC AT BASELINE, UNABLE TO LET NEEDS KNOWN, PT ON ETT TO VENT ACPC 50%FIO2, PEEP 10, RR 20, SATURATING AT 94%, NO SOB NOTED, MIDLINE TO L UPPER ARM DOUBLE LUMEN, PATENT INTACT, INFUSING 1/2 NS @ 100ML/HR, INFUSING WELL, POMPA CATH IN PLACE DRAINING TO GRAVITY, RECTAL TUBE IN PLACE, DRAINING TO GRAVITY, G TUBE IN PLACE WITH FEEDING, INITIAL ASSESSMENT DONE, ALL SAFETY PRECAUTION MET, CALL LIGHT WITHIN REACH, WILL CONTINUE TO MONITOR.
[2019-12-03] MEDS: PHARMACY COMMENTS MC SCH (09:19)
[2019-12-03] MEDS: VANCOMYCIN 500 MG VIAL PO SCH ×4 (09:19→23:36)
[2019-12-03] MEDS: DIGOXIN 0.125 MG TAB GT SCH (09:20)
[2019-12-03] MEDS: ASCORBIC ACID 500 MG TAB PO SCH (09:20)
[2019-12-03] MEDS: SODIUM PHOS / POTASSIUM PHOS 1 PKT PDR PO SCH ×2 (09:20→13:05)
[2019-12-03] MEDS: ZINC SULF 220 MG CAP PO SCH (09:20)
[2019-12-03] MEDS: INSULIN LANTUS 100 UNITS/ML 10 ML VIAL SUBQ SCH (09:20)
[2019-12-03] MEDS: ATORVASTATIN 20 MG TAB PO SCH (09:20)
--- NOTE | 2019-12-03 09:20 | NUR ---
DUE MEDICATION ADMINISTERED PT TOLERATED WELL, NO DISTRESS NOTED, WILL CONTINUE TO MONITOR.
[2019-12-03] MEDS: NACL 0.45% 1,000 ML IV SCH ×2 (09:22→14:15)
[2019-12-03 11:44] LABS: PROTHROMBIN TIME 10.8 secs (10.8-13.4)
--- NOTE | 2019-12-03 12:12 | NUR ---
CHECKED AND REPOSITIONED PT, RECTAL TUBE LEAKED, CLEAN AND REPOSITIONED, PT TOLERATED WELL, WILL CONTINUE TO MONITOR. Addendum: 12/03/19 at 1943 by Pamela Lara RN VAP ORAL CARE DONE
[2019-12-03] MEDS: THERAHONEY GEL 42.5 GM TP SCH (13:05)
--- NOTE | 2019-12-03 13:06 | NUR ---
DUE MEDICATION GIVEN, SKIN CARE DONE, PT TOLERATED WELL, WILL CONTINUE TO MONITOR.
[2019-12-03] MEDS: FLUCONAZOLE 200 MG/NS PREMIX 100 ML IV SCH (15:06)
--- NOTE | 2019-12-03 15:06 | NUR ---
DUE MEDICATION FLUCANAZOLE GIVEN, PT TOLERATED WELL, NO DISTRESS NOTED, WILL CONTINUE TO MONITOR.
--- NOTE | 2019-12-03 17:57 | NUR ---
DUE MEDICATION GIVEN, PT TOLERATED WELL, NO DISTRESS NOTED, VAP ORAL CARE DONE, CLEANED AND CHANGED PT, PT TOLERATED WELL, WILL CONTINUE TO MONITOR.
[2019-12-03 18:42] LABS: BASOPHILS % (AUTO) 0.2 % (0.0-2.0); EOSINOPHILS # (AUTO) 0.2 K/uL (0-0.4); EOSINOPHILS % (AUTO) 1.2 % (0.0-4.0); HEMATOCRIT 24.4 % (36-52); HEMOGLOBIN 7.8 g/dL (12.0-18.0); LYMPHOCYTES # (AUTO) 0.5 K/uL (2.0-11.5); MEAN CORPUSCULAR HEMOGLOBIN 30 pg (27-31); MEAN CORPUSCULAR HGB CONC 32 g/dL (33-37); MONOCYTES # (AUTO) 0.2 K/uL (0.8-1.0); MONOCYTES % (AUTO) 1.4 % (1.7-9.3); NEUTROPHILS # (AUTO) 12.8 K/uL (1.8-7.7); NEUTROPHILS % (AUTO) 93.2 % (42.2-75.2); PLATELET COUNT (AUTO) 169 K/uL (140-450); RED BLOOD CELL COUNT(AUTO) 2.65 MIL/uL (4.20-6.10); WHITE BLOOD COUNT (AUTO) 13.7 K/uL (4.8-10.8)
--- NOTE | 2019-12-03 19:20 | NUR ---
ENDORSED PT TO BLADE BONER NURSE FOR CONTINUOUS OF CARE.
--- NOTE | 2019-12-03 19:30 | NUR ---
ASSUMED CARE OF PT.INITIAL ASSESSMENT COMPLETED.PT LETHARGIC; SR WITH 1ST DEGREE AV BLOCK NOTED ON MONITOR.TRACH TO VENT FIO2 50% RATE 16 PEEP8.PT SUCTIONED.NO GAG REFLEX NOTED.WITH SOFT SPOT TO LT SIDE OF HEAD; PT HX CRANIOTOMY.WITH GTUBE ALSO NOTED.NO RESIDUALS.ON FEEDING GLUCERNA 1.2 AT 70ML/HR WITH ORDERED WATER FLUSH.WITH POMPA CATHETER TO BSD,HEMATURIA STILL NOTED.W/RECTAL TUBE, LIQUID BROWNISH STOOL ALSO NOTED.W/PRESSURE ULCER TO SACRUM,DRY AND INTACT DRESSING.ALSO NOTED PURPLISH DISCOLORATION TO LT BUTTOCKS.PERIPHERAL IV TO RT HAND G22 SALINE LOCK AND TATYANA MIDLINE ALSO NOTED INFUSING ORDERED IVF.FLACC 0.EDEMA TO BOTH HANDS ALSO NOTED.NON PITTING.
--- NOTE | 2019-12-03 20:00 | NUR ---
ORAL CARE USING VAP KIT RENDERED.PT ON PEPCID FOR GI PROPHYLAXIS.REPOSITIONED.
[2019-12-03] MEDS: FAMOTIDINE 20 MG TAB GT SCH (20:43)
--- NOTE | 2019-12-03 23:50 | NUR ---
PTS SATURATION 86% AT THIS TIME; PT SUCTIONED WITH MODERATE AMT OF CREAMY SECRETIONS NOTED; RESIDUALS CHECK, NOTED LARGE AMT OF BLOOD COMING OUT FROM G TUBE OSTOMY, ALSO WITH CLOTS NOTED.PHONE CALL TO DR CAUSEY AND NOTIFIED OF THE ABOVE.PER PHYSICIAN; HE WILL ORDER CBC Addendum: 12/04/19 at 0029 by Lorena Boucher RN GTUBE FEEDING ON HOLD AT THIS TIME; PER DR CAUSEY; OK TO HOLD FEEDING. KUB ALSO ORDERED
[2019-12-04] VITALS (17 sets, daily range): BP systolic 92–125; BP diastolic 39–62
[2019-12-04 00:20] LABS: HEMATOCRIT 22.2 % (36-52); HEMOGLOBIN 7.1 g/dL (12.0-18.0); MEAN CORPUSCULAR HEMOGLOBIN 30 pg (27-31); MEAN CORPUSCULAR HGB CONC 32 g/dL (33-37); MEAN CORPUSCULAR VOLUME 92.6 fL (80-94); PLATELET COUNT (AUTO) 169 K/uL (140-450); RED BLOOD CELL COUNT(AUTO) 2.39 MIL/uL (4.20-6.10); RED CELL DISTRIBUTION WIDTH 16.2 % (11.6-13.7); WHITE BLOOD COUNT (AUTO) 14.1 K/uL (4.8-10.8)
[2019-12-04 00:55] LABS: LYMPHOCYTES % (MANUAL) 0 % (20-46)
[2019-12-04] MEDS: HYDRAGUARD CREAM TP SCH ×2 (01:01→13:23)
[2019-12-04] MEDS: NACL 0.45% 1,000 ML IV SCH ×3 (01:42→21:04)
[2019-12-04] MEDS: ACETAMINOPHEN 325 MG TAB PO PRN (01:43)
--- NOTE | 2019-12-04 01:45 | NUR ---
FROTHY SECRETIONS NOTED ON PTS MOUTH; SUCTIONED.PT WARM TO TOUCH.TEMP CHECKED 101.1 ; TYLENOL GIVEN ORDERED.COOLING MEASURES RENDERED.STILL WITH SMALL CLOTS NOTED WHEN G TUBE WAS ASPIRATED. WILL CONTINUE TO CLOSELY MONITOR PT.
--- NOTE | 2019-12-04 02:45 | NUR ---
TEMP RECHECKED 101.CONTINUOUS COOLING MEASURE RENDERED.SECRETIONS SUCTIONED.STILL FROTHY
--- NOTE | 2019-12-04 04:53 | NUR ---
PHONE CALL TO DR CAUSEY, NOTIFIED RE;COFFEE GROUND OUTPUT THROUGH [employer].PHYSICIAN SAID TO STILL HOLD TUBE FEEDING; GI CONSULT ALREADY ORDERED,DR Aaron POOL
[2019-12-04] MEDS: MEROPENEM 1,000 MG in NACL 0.9% 100 ML IV SCH ×3 (05:26→20:34)
[2019-12-04] MEDS: levETIRAcetam 100 MG/ML ORASYR GT SCH ×3 (05:26→20:33)
--- NOTE | 2019-12-04 05:40 | NUR ---
PT UNRESPONSIVE.RECTAL TUBE LEAKING.NOTED LARGE AMT OF LIQUID BLOODY STOOL.PT CLEANED.REPOSITIONED.FLACC 0
[2019-12-04] MEDS ORDERED: WATER STERILE 20 ML MC ONE (06:03)
[2019-12-04] MEDS: VANCOMYCIN 500 MG VIAL PO SCH ×3 (06:19→18:00)
[2019-12-04] MEDS: BLOOD GLUCOSE MONITORING 1 DEV DEV FS SCH ×4 (06:20→21:04)
[2019-12-04] MEDS: INSULIN LISPRO SLIDING SCALE 100 UNITS/ML VIAL SUBQ PRN ×3 (06:21→21:02)
[2019-12-04 06:27] LABS: BASOPHILS # (AUTO) 0.1 K/uL (0.00-0.22); BASOPHILS % (AUTO) 0.5 % (0.0-2.0); EOSINOPHILS # (AUTO) 0.1 K/uL (0-0.4); LYMPHOCYTES # (AUTO) 0.5 K/uL (2.0-11.5); LYMPHOCYTES % (AUTO) 4.3 % (20.5-51.1); MEAN CORPUSCULAR HEMOGLOBIN 30 pg (27-31); MEAN CORPUSCULAR HGB CONC 32 g/dL (33-37); MEAN CORPUSCULAR VOLUME 91.8 fL (80-94); MONOCYTES # (AUTO) 0.3 K/uL (0.8-1.0); MONOCYTES % (AUTO) 2.3 % (1.7-9.3); NEUTROPHILS # (AUTO) 10.4 K/uL (1.8-7.7); NEUTROPHILS % (AUTO) 91.9 % (42.2-75.2); PLATELET COUNT (AUTO) 148 K/uL (140-450); RED BLOOD CELL COUNT(AUTO) 2.15 MIL/uL (4.20-6.10); RED CELL DISTRIBUTION WIDTH 15.9 % (11.6-13.7); WHITE BLOOD COUNT (AUTO) 11.3 K/uL (4.8-10.8)
[2019-12-04 06:41] LABS: ANION GAP 13.8 (8-16); CARBON DIOXIDE 27.2 mmol/L (21-32); CHLORIDE 113 mmol/L (98-107); CREATININE 0.9 mg/dL (0.6-1.3); GLUCOSE 311 mg/dL (74-106); SODIUM SERUM 150 mmol/L (136-145); UREA NITROGEN, BLOOD 48 mg/dL (7-18)
[2019-12-04 06:59] LABS: MAGNESIUM 1.8 mg/dL (1.8-2.4)
--- NOTE | 2019-12-04 07:15 | NUR ---
RECEIVED REPORT FROM NIGHT NURSE. PT AAOX0, NO DISTRESS NOTED, RESPIRATIONS EVEN AND UNLABORED ON ETT TO VENT IN ACPC MODE 50% FIO2, R 16, PEEP 8. L UA MIDLINE AND R HAND 22G IN PLACE PATENT AND ASYMPTOMATIC INFUSING PER ORDER. HX CRANEOTOMY, LEFT SIDED HEAD SOFTNESS. G TUBE IN PLACE, GLUCERNA 1.2 70ML/H WATER FLUSH 300Q6H. RECTAL TUBE IN PLACE. [address]ATH IN PLACE. SKIN NON INTACT, SACLAR PRESSURE ULCER PRESENT AND LEFT GLUTEUS DTI. DROPLET PRECAUTIONS IN PLACE TO R/O COVID. BED IN LOW POSITION, SAFETY MEASURES IN PLACE. WILL CONTINUE TO MONITOR CLOSELY.
--- NOTE | 2019-12-04 07:34 | NUR ---
REPORT GIVEN TO MANINDER HULL FOR CONTINUITY OF CARE
[2019-12-04 07:35] LABS: HEMOGLOBIN 6.4 g/dL (12.0-18.0)
[2019-12-04 07:36] LABS: HEMATOCRIT 19.8 % (36-52)
[2019-12-04] MEDS: ASCORBIC ACID 500 MG TAB PO SCH (08:24)
[2019-12-04] MEDS: DIGOXIN 0.125 MG TAB GT SCH (08:24)
[2019-12-04] MEDS: ATORVASTATIN 20 MG TAB PO SCH (08:24)
[2019-12-04] MEDS: ZINC SULF 220 MG CAP PO SCH (08:24)
[2019-12-04] MEDS: PHARMACY COMMENTS MC SCH (08:24)
[2019-12-04] MEDS: INSULIN LANTUS 100 UNITS/ML 10 ML VIAL SUBQ SCH (08:24)
--- NOTE | 2019-12-04 08:58 | NUR ---
MEDICATIONS ADMINISTERED PER ORDER. PT TOLERATED WELL, NO DISTRESS NOTED, FLACC 0. GTUBE FLUSHED, ASPIRATED MINIMAL AMOUNT OF BLOOD. STOOL RED COLORATION. AWAITING CONSULT DR POOL.
--- NOTE | 2019-12-04 09:03 | NUR ---
12/04/19 RD FOLLOW UP COMPLETED PLEASE REFER TO NUTRITION ASSESSMENT UNDER CARE ACTIVITY FOR ESTIMATED NUTRITIONAL NEEDS. 1. WHEN MEDICALLY APPROPRIATE, RE-START ENTERAL FEED OF GLUCERNA 1.2 @70 ML/HR -BEGIN AT 20 ML/HR AND INCREASE 10 ML/HR TO GOAL RATE -THIS WILL PROVIDE 2016 CALORIES AND 101 GM OF PROTEIN 2. DECREASE FREE WATER FLUSH TO 105 ML Q4H 3. CONTINUE VITAMIN C AND ZINC FOR WOUND HEALING 4. RD TO FOLLOW-UP IN 2-3 DAYS PATIENT IS HIGH RISK. CHIRAG REED RD
[2019-12-04] MEDS ORDERED: VANCOMYCIN 500 MG in DEXTROSE 5% 100 ML IV SCH (12:00)
[2019-12-04] MEDS: ACETAMINOPHEN 325 MG TAB PO SCH ×3 (12:00→20:34)
--- NOTE | 2019-12-04 12:09 | NUR ---
PT REPOSITIONED AND CLEANED. LINEN CHANGED. POMPA CARE GIVEN. VAP ORAL CARE GIVEN. TEMP 100.4, SCHEDULED TYLENOL GIVEN. WILL CONTINUE TO MONITOR. NO DISTRESS NOTED. FLACC 0. SAFETY MEASURES IN PLACE. WILL CONTINUE TO MONITOR.
[2019-12-04] MEDS ORDERED: PHYTONADIONE 10 MG/ML AMP SUBQ ONE (12:15)
[2019-12-04] MEDS: THERAHONEY GEL 42.5 GM TP SCH (13:23)
--- NOTE | 2019-12-04 13:42 | NUR ---
MEDICATIONS ADMINISTERED PER ORDER. WILL CONTINUE TO MONITOR.
[2019-12-04] MEDS ORDERED: PHYTONADIONE 10 MG in NACL 0.9% 50 ML IV SCH (14:00)
[2019-12-04] MEDS: FLUCONAZOLE 200 MG/NS PREMIX 100 ML IV SCH (15:00)
--- NOTE | 2019-12-04 15:00 | NUR ---
BLOOD TRANSFUSION STARTED AT THIS TIME. WILL MONITOR PT FOR ADVERSE REACTIONS.
[2019-12-04] MEDS: FUROSEMIDE 20 MG TAB PO SCH ×2 (16:00→20:34)
--- NOTE | 2019-12-04 17:00 | NUR ---
BLOOD TRANSFUSION FINISHED AT THIS TIME, NO ADVERSE REACTIONS NOTICED. NO DISTRESS NOTICED. MEDICATIONS ADMINISTERED PER ORDER. WILL CONTINUE TO MONITOR. Addendum: 12/04/19 at 1716 by Eddie Ortega RN 1 UNIT PRBC GIVEN
--- NOTE | 2019-12-04 18:16 | NUR ---
MEDICATIONS ADMNINSTERED PER ORDER. PT TOLERATED WELL, NO DISTRESS NOTED. PT REPOSITIONED AT THIS TIME. VAP ORAL CARE GIVEN.
--- NOTE | 2019-12-04 19:20 | NUR ---
REPORT GIVEN TO NIGHT NURSE FOR CONTINUITY OF CARE.
--- NOTE | 2019-12-04 19:30 | NUR ---
RECEIVED PT FROM DAYSHIFT RN, PT IS TRACH TO VENT AC/PC FIO2 60% RR 18 PEEP 8 PT LUNG SOUNDS CRACKLES, S1 AND S2 HEART SOUND HEARD, PT HAS G TUBE RECEIVING GLUCERNA 1.2 70 ML/HR FWF 300 Q4H, POMPA CATHETER IN PLACE DRAINING YELLOW URINE, RECTAL TUBE DRAINING LIQUID BLACK FECES, PULSES PALPABLE UPPER AND LOWER EXTREMITIES BOWEL SOUNDS ACTIVE, SAFETY PROTOCOLS IN PLACE WILL CONTINUE TO MONITOR PT
[2019-12-05] MEDS: VANCOMYCIN 500 MG VIAL PO SCH ×5 (00:25→23:57)
[2019-12-05] MEDS: HYDRAGUARD CREAM TP SCH ×2 (01:00→13:53)
--- NOTE | 2019-12-05 01:00 | NUR ---
RECEIVED PATIENT FROM ICU NURSE WITH RT AT BEDSIDE IN STABLE CONDITION FOR CONTINUITY OF CARE. TRACH TO VENT. AC MODE FIO2 60% RR 20 PEEP 8. RESPIRATIONS EVEN, UNLABORED. SUCTIONED WHITE THIN SECRETIONS. SKIN WARM, DRY. MIDLINE DOUBLE LUMEN NOTED TO LEFT ARM, INFUSING FLUIDS WELL. SALINE LOCK TO RIGHT HAND 22G PATENT/INTACT. ABDOMEN SOFT, NONTENDER, NONDISTENDED. BOWEL SOUNDS ACTIVE X4 QUADRANTS. CONTINUES ON ENTERAL FEEDING, TOLERATING WELL. HOB UP 30 DEGREES. NO RESIDUAL NOTED. POMPA CATHETER PATENT WITH YELLOW URINE DRAINING TO GRAVITY. RECTAL TUBE PATENT WITH DARK STOOL NOTED DRAINING WELL. FLACC 0. NO S/S ACUTE DISTRESS. SAFETY PRECAUTIONS IN PLACE. CALL LIGHT WITHIN REACH.
--- NOTE | 2019-12-05 03:23 | NUR ---
PATIENT CONTINUES IN STABLE CONDITION. NO S/S ACUTE DISTRESS. FLACC 0. CALL LIGHT WITHIN REACH.
[2019-12-05 04:00] VITALS: BP 107/59
[2019-12-05] MEDS: levETIRAcetam 100 MG/ML ORASYR GT SCH ×3 (05:00→21:11)
[2019-12-05] MEDS: MEROPENEM 1,000 MG in NACL 0.9% 100 ML IV SCH ×3 (05:00→21:13)
[2019-12-05] MEDS ORDERED: MEROPENEM 1,000 MG VIAL IV ONE (05:41)
[2019-12-05] MEDS: NACL 0.45% 1,000 ML IV SCH ×2 (06:15→16:20)
[2019-12-05] MEDS: LANSOPRAZOLE 30 MG CAPDR PO SCH (06:25)
[2019-12-05] MEDS: BLOOD GLUCOSE MONITORING 1 DEV DEV FS SCH ×4 (06:25→21:00)
[2019-12-05] MEDS: INSULIN LISPRO SLIDING SCALE 100 UNITS/ML VIAL SUBQ PRN ×3 (06:27→16:20)
--- NOTE | 2019-12-05 07:54 | NUR ---
RECEIVED REPORT FROM PM RNADELAIDA. C/O HEMATURIA, ABDOMINAL DISTENSION. DX HEMATURIA. MODIFIED CODE. PT IS RESTING IN BED. RT UPPER MIDLINE 1/2 NS 100ML/HR. GT FEEDING GLUCERNA 1.2 70ML/HR WATER FLUSH 300ML Q 4HR. HOLD FEEDING IF RESIDUAL IS GREATER THAN 100ML. TRACH TO VENT.
[2019-12-05 08:00] VITALS: BP 107/57
[2019-12-05 08:48] LABS: ANION GAP 18.5 (8-16); CHLORIDE 110 mmol/L (98-107); CREATININE 1.4 mg/dL (0.6-1.3); GLUCOSE 338 mg/dL (74-106); POTASSIUM 4.5 mmol/L (3.5-5.1); SODIUM SERUM 146 mmol/L (136-145)
[2019-12-05 08:53] LABS: FERRITIN 792 ng/mL (30-400)
--- NOTE | 2019-12-05 08:58 | NUR ---
RECEIVED ON A [employer] R860 VENTILATOR PLUGGED INTO RED OUTLET TOLERATING WELL WITHOUT ADVERSE REACTIONS NOTED TO A PORTEX DFEN AIRWAY SECURED WITH A PORTEX TRACH TIE CUFF PRESSURE CHECKED NOTED AMBU BAG AT BEDSIDE LOC AWAKE NON RESPONSIVE TO SHOCHET VERBAL COMMANDS SLIGHT RESPONSIVENESS TO TRACHEAL STIMULATION GOOD CHEST RISE DEEP TRACHEAL SUCTION FOR LARGE THICK PALE YELLOW SECRETIONS JAIDA-STOMA SUCTION FOR SMALL FROTHY WHITE SECRETIONS AIRWAY PATENT
[2019-12-05] MEDS: PHARMACY COMMENTS MC SCH (09:00)
--- NOTE | 2019-12-05 09:05 | NUR ---
CRITICAL VALUE FROM LAB, BUN 65. PHYSICIAN NOTIFIED.
[2019-12-05 09:07] LABS: UREA NITROGEN, BLOOD 65 mg/dL (7-18)
[2019-12-05] MEDS: ATORVASTATIN 20 MG TAB PO SCH (09:25)
[2019-12-05] MEDS: ZINC SULF 220 MG CAP PO SCH (09:25)
[2019-12-05] MEDS: ASCORBIC ACID 500 MG TAB PO SCH (09:25)
[2019-12-05] MEDS: DIGOXIN 0.125 MG TAB GT SCH (09:25)
[2019-12-05] MEDS: INSULIN LANTUS 100 UNITS/ML 10 ML VIAL SUBQ SCH (09:30)
[2019-12-05 09:41] LABS: BASOPHILS % (AUTO) 0.1 % (0.0-2.0); EOSINOPHILS # (AUTO) 0.1 K/uL (0-0.4); EOSINOPHILS % (AUTO) 1.7 % (0.0-4.0); HEMATOCRIT 20.8 % (36-52); LYMPHOCYTES # (AUTO) 0.5 K/uL (2.0-11.5); LYMPHOCYTES % (AUTO) 7.8 % (20.5-51.1); MEAN CORPUSCULAR HEMOGLOBIN 30 pg (27-31); MEAN CORPUSCULAR HGB CONC 33 g/dL (33-37); MEAN CORPUSCULAR VOLUME 90.4 fL (80-94); MONOCYTES # (AUTO) 0.1 K/uL (0.8-1.0); MONOCYTES % (AUTO) 1.9 % (1.7-9.3); NEUTROPHILS # (AUTO) 5.9 K/uL (1.8-7.7); NEUTROPHILS % (AUTO) 88.5 % (42.2-75.2); PLATELET COUNT (AUTO) 112 K/uL (140-450); RED CELL DISTRIBUTION WIDTH 15.5 % (11.6-13.7); WHITE BLOOD COUNT (AUTO) 6.7 K/uL (4.8-10.8)
[2019-12-05 09:46] LABS: HEMOGLOBIN 6.8 g/dL (12.0-18.0)
--- NOTE | 2019-12-05 09:46 | NUR ---
CRITICAL VALUE FROM LAB, HGB 6.8, HCT 20.4. PHYSICIAN NOTIFIED
--- NOTE | 2019-12-05 11:18 | NUR ---
PT WAS GIVEN VANCOCIN ORAL VIA G-TUBE, INSULIN 8UNITS WAS GIVEN ON THE RT UA, FOR BLOOD GLUCOSE OF 304, WILL MONITOR PT.
[2019-12-05 12:00] VITALS: BP 107/53
--- NOTE | 2019-12-05 13:45 | NUR ---
BLOOD TRANSFUSION OF 1 UNIT PRBC WAS STARTED NOW, PRE-V/S TAKEN AND IS STABLE. WILL CONTINUE TO MONITOR PT.
[2019-12-05] MEDS: THERAHONEY GEL 42.5 GM TP SCH (13:53)
--- NOTE | 2019-12-05 13:54 | NUR ---
CALLED TO PT'S ROOM FOR LOW VT AND LOW O2 SAT OF 75% INCREASED FIO2 TO 100% SXN PT . PT'S LEFT SIDE OF HEAD IS SWELLING AND RN ADAL AND DELLA PEARSON AT BEDSIDE
--- NOTE | 2019-12-05 13:59 | NUR ---
CALLED DR. HERRERA AND INFORMED MD THAT THE LEFT SIDE OF THE HEAD OF THE PT IS BULGING, MADE A TELEPHONE ORDER TO HAVE A CT OF HEAD WITHOUT CONTRAST DONE TO PT AND SAID TO CONTINUE TRANSFUSION.
[2019-12-05 16:00] VITALS: BP 125/59
--- NOTE | 2019-12-05 16:02 | NUR ---
NO DISTRESS NOTED GOOD CHEST RISE DEEP TRACHEAL SUCTION FOR MODERATE SEMI THICK PALE YELLOW SECRETIONS AIRWAY PATENT SATURATION 99% ON FIO2 OF 100% TITRATED FIO2 TO 85%
[2019-12-05] MEDS: ACETAMINOPHEN 325 MG TAB PO PRN (16:03)
--- NOTE | 2019-12-05 16:09 | NUR ---
CALLED DR. LINDSEY HERRERA AND INFORMED THE MD OF THE PT'S TEMP. WHICH IS 100 AND MD MADE A TELEPHONE ORDER TO MEDICATE WITH TYLENOL AND CONTINUE THE BLOOD TRANSFUSION, IF TEMP. GOES UP TO 102, DR. HERRERA SAID TO STOP THE TRANSFUSION. ACKNOWLEDGED AND WILL CARRY OUT ORDER.
--- NOTE | 2019-12-05 16:20 | NUR ---
PT WAS GIVEN INSULIN 6 UNITS FOR THE BLOOD GLUCOSE OF 274, WILL MONITOR PT.
--- NOTE | 2019-12-05 17:10 | NUR ---
BLOOD TRANSFUSION OF 1 UNIT WAS FINISHED NOW.
[2019-12-05] MEDS: FLUCONAZOLE 200 MG/NS PREMIX 100 ML IV SCH (17:28)
--- NOTE | 2019-12-05 18:30 | NUR ---
CALLED RT FOR TRACH SUCTIONING AND VENT SETTING MONITORING.
--- NOTE | 2019-12-05 19:35 | NUR ---
TRANSFER OF CARE TO PM BARI HLUL. PT IS STABLE AT THIS TIME.
[2019-12-05 20:00] VITALS: BP 127/57
[2019-12-06] VITALS (7 sets, daily range): BP systolic 139–158; BP diastolic 53–68
[2019-12-06] MEDS: INSULIN LISPRO SLIDING SCALE 100 UNITS/ML VIAL SUBQ PRN ×3 (00:17→22:16)
--- NOTE | 2019-12-06 00:19 | NUR ---
CO SIGNED THE HUMALOG, PT IS ON ISOLATION FOR ESBL, ETC. COW MACHINE CANNOT BE BROUGHT IN DUE TO PT IS IN ISOLATION.
[2019-12-06] MEDS: HYDRAGUARD CREAM TP SCH ×2 (00:32→13:09)
[2019-12-06] MEDS: NACL 0.45% 1,000 ML IV SCH ×2 (02:26→13:08)
[2019-12-06] MEDS: levETIRAcetam 100 MG/ML ORASYR GT SCH ×3 (05:01→20:45)
[2019-12-06] MEDS: MEROPENEM 1,000 MG in NACL 0.9% 100 ML IV SCH ×3 (05:03→20:50)
[2019-12-06] MEDS: ACETAMINOPHEN 325 MG TAB PO PRN ×2 (05:03→11:59)
[2019-12-06] MEDS: VANCOMYCIN 500 MG VIAL PO SCH ×2 (05:21→12:22)
--- NOTE | 2019-12-06 06:00 | NUR ---
PT WAS LEFT RECEIVED ON SETTINGS OF PC P 30 PEEP 8 f 20 VENT PLUGGED INTO RED OUTLET BMV AT BEDSIDE TRACH IS SECURE AND TRACH CARE COMPLETED
[2019-12-06] MEDS: BLOOD GLUCOSE MONITORING 1 DEV DEV FS SCH ×4 (06:38→21:00)
[2019-12-06] MEDS: LANSOPRAZOLE 30 MG CAPDR PO SCH (06:38)
--- NOTE | 2019-12-06 07:11 | NUR ---
RECEIVED REPORT FROM PM, DELLA CANDELARIA. PT IS RESTING IN BED. LT UPPER MIDLINE RUNNING 100ML/NR 0.45NS. VS STABLE. GLUCERNA RUNNING 70 ML. CALLED RT TO HELP WITH SUCTIONING. RECTAL TUBE CURRENTLY PLACED. POMPA IN PLACE. WILL CONTINUE TO MONITOR.
[2019-12-06] MEDS: ASCORBIC ACID 500 MG TAB PO SCH (08:27)
[2019-12-06] MEDS: DIGOXIN 0.125 MG TAB GT SCH (08:27)
[2019-12-06] MEDS: ATORVASTATIN 20 MG TAB PO SCH (08:27)
[2019-12-06] MEDS: ZINC SULF 220 MG CAP PO SCH (08:27)
[2019-12-06] MEDS: INSULIN LANTUS 100 UNITS/ML 10 ML VIAL SUBQ SCH (08:31)
[2019-12-06] MEDS: PHARMACY COMMENTS MC SCH (09:00)
[2019-12-06 11:13] LABS: ANION GAP 19.5 (8-16); CARBON DIOXIDE 20.5 mmol/L (21-32); CHLORIDE 109 mmol/L (98-107); CREATININE 1.5 mg/dL (0.6-1.3); GLUCOSE 236 mg/dL (74-106); SODIUM SERUM 142 mmol/L (136-145)
[2019-12-06 11:17] LABS: UREA NITROGEN, BLOOD 75 mg/dL (7-18)
--- NOTE | 2019-12-06 11:25 | NUR ---
SPOKE TO DR. CARMELITA HARRIS AND INFORMED MD OF THE K LEVEL OF THE PT WHICH IS 7.[address] HARRIS MADE A TELEPHONE ORDER TO HAV ANOTHER STAT BMP DONE TO PT TO RE-CHECK THE K LEVEL.
[2019-12-06] MEDS ORDERED: SODIUM ZIRCONIUM CYCLOSILICATE 10 GM POWD.PACK PO SCH (11:30)
[2019-12-06] MEDS ORDERED: CALCIUM GLUCONATE 10% 1,000 MG in NACL 0.9% 50 ML IV SCH (11:45)
[2019-12-06] MEDS: ACETAMINOPHEN 325 MG TAB PO SCH ×3 (12:00→20:00)
[2019-12-06] MEDS: FUROSEMIDE 20 MG TAB PO SCH ×2 (12:00→16:00)
--- NOTE | 2019-12-06 12:00 | NUR ---
CALLED DR POOL, UNABLE TO REACH. LEFT A VOICEMAIL. PAGED HIM TWICE. REGARDING POSSIBLE GI BLEED PER DR. HERRERA ORDERS.
[2019-12-06] MEDS ORDERED: INSULIN REGULAR, HUMAN 100 UNIT/ML VIAL IVP SCH (12:15)
[2019-12-06] MEDS: THERAHONEY GEL 42.5 GM TP SCH (13:09)
--- NOTE | 2019-12-06 13:10 | NUR ---
REPOSITIONED PT WITH ASSISTANCE. PT TOLERATED PROCEDURE WELL. PTS O2 SAT WAS 93%.
--- NOTE | 2019-12-06 13:52 | NUR ---
RECHECK BLOOD GLUCOSE 30 MINS AFTER MEDICATIONS WERE GIVEN AT 1340. BLOOD GLUCOSE 193 AFTER 10UNITS/0.1ML INSULIN IVP AND CALCIUM GLUCONATE PER PHYSICIAN'S ORDER GIVEN.
[2019-12-06] MEDS ORDERED: VANCOMYCIN 1,000 MG in DEXTROSE 5% 250 ML IV SCH (14:30)
[2019-12-06] MEDS: FLUCONAZOLE 200 MG/NS PREMIX 100 ML IV SCH (16:34)
--- NOTE | 2019-12-06 16:34 | NUR ---
PT WAS GIVEN DIFLUCAN IVPB, WILL MONITOR PT.
--- NOTE | 2019-12-06 18:30 | NUR ---
CALLED DR. ZAMORA AND INFORMED MD THAT THE CONSERVATOR FOR THE PT IS NOT AVAILABLE TODAY AND NO CONSENT FOR PICC LINE WAS OBTAINED, INFORMED DR. HERRERA WELL REGARDING THE EDEMA OF THE PT AND MD MADE A TELEPHONE ORDER TO DISCONTINUE THE DEXTROSE 0.45% AND START PT WITH IVF NS AT 50ML/HR RATE, ORDER READ BACK AND VERIFIED AND WILL CARRY OUT ORDER.
[2019-12-06] MEDS: NACL 0.9% 1,000 ML IV SCH (18:35)
--- NOTE | 2019-12-06 18:50 | NUR ---
CHANGED IV FLUIDS TO NS 0.90% AT 50ML/HR PER PHYSICIAN ORDER.
--- NOTE | 2019-12-06 19:10 | NUR ---
ENDORSED PT TO WAITER/WAITRESS CABIN CLASS NURSE FOR CONTINUITY OF CARE.
--- NOTE | 2019-12-06 19:27 | NUR ---
RECEIVED REPORT FROM AM NURSE. PATIENT LYING DOWN IN BED. NO DISTRESS NOTED. FLACC 0. ON TRACH TO VENT, WITH VENT SETTINGS; FI02:70%, FLOW:30, PEEP:8, PMAX:50 WITH O2 SAT AT 90%. AAOX1, APHASIC, SKIN COLOR APPROPRIATE TO ETHNICITY, WARM TO TOUCH. HAS SACRAL WOUND, DRESSING DRY AND INTACT AT THIS TIME. RUARM MIDLINE NOTED, INFUSING IVF PER MD ORDERS. RECTAL BAG IN PLACE, PATENT. POMPA CATHETER IN PLACE. REVIEWED PLAN OF CARE WITH PATIENT. UNABLE TO COMPREHEND. SAFETY MEASURES IN PLACE, CALL LIGHT WITHIN REACH. WILL CONTINUE TO MONITOR.
[2019-12-06 19:34] LABS: BASOPHILS % (AUTO) 0.3 % (0.0-2.0); EOSINOPHILS # (AUTO) 0.2 K/uL (0-0.4); HEMATOCRIT 26.5 % (36-52); HEMOGLOBIN 8.7 g/dL (12.0-18.0); LYMPHOCYTES # (AUTO) 0.5 K/uL (2.0-11.5); LYMPHOCYTES % (AUTO) 5.7 % (20.5-51.1); MEAN CORPUSCULAR HEMOGLOBIN 29 pg (27-31); MEAN CORPUSCULAR HGB CONC 33 g/dL (33-37); MONOCYTES # (AUTO) 0.3 K/uL (0.8-1.0); MONOCYTES % (AUTO) 3.1 % (1.7-9.3); NEUTROPHILS # (AUTO) 8.3 K/uL (1.8-7.7); NEUTROPHILS % (AUTO) 88.9 % (42.2-75.2); PLATELET COUNT (AUTO) 148 K/uL (140-450); RED BLOOD CELL COUNT(AUTO) 3.01 MIL/uL (4.20-6.10); RED CELL DISTRIBUTION WIDTH 17.1 % (11.6-13.7); WHITE BLOOD COUNT (AUTO) 9.3 K/uL (4.8-10.8)
--- NOTE | 2019-12-06 20:55 | NUR ---
SCHEDULED MEDICATIONS DUE GIVEN. CALLED DR. HERRERA TO ASK IF 2 UNITS PRBC TO BE GIVEN WHEN H&H 8.7 & 26.[address] DR. PERRY CALLED BACK AND COVERING FOR DR. HERRERA. PER DR. PERRY, HOLD OFF ON GIVING BLOOD FOR NOW. WILL CONTINUE TO MONITOR.
[2019-12-06] MEDS ORDERED: COLISTIMETHATE SODIUM 150 MG in NACL 0.9% 100 ML IV SCH (21:00)
--- NOTE | 2019-12-06 23:30 | NUR ---
PERFORMED ORAL AND TRACH SUCTIONING. CONDITION UNCHANGED. WILL CONTINUE TO MONITOR.
[2019-12-06 23:51] LABS: ANION GAP 18.1 (8-16); CARBON DIOXIDE 22.1 mmol/L (21-32); CHLORIDE 106 mmol/L (98-107); CREATININE 1.7 mg/dL (0.6-1.3); GLUCOSE 224 mg/dL (74-106); SODIUM SERUM 139 mmol/L (136-145)
[2019-12-06 23:55] LABS: POTASSIUM 7.2 mmol/L (3.5-5.1)
[2019-12-06 23:56] LABS: UREA NITROGEN, BLOOD 75 mg/dL (7-18)
[2019-12-07] VITALS (8 sets, daily range): BP systolic 115–152; BP diastolic 50–70
[2019-12-07] MEDS ORDERED: INSULIN REGULAR, HUMAN 100 UNIT/ML VIAL IVP ONE (01:00)
[2019-12-07] MEDS ORDERED: DEXTROSE 50% 50 ML SYR IVP ONE (01:00)
[2019-12-07] MEDS ORDERED: INSULIN REGULAR, HUMAN 100 UNIT/ML VIAL SUBQ ONE (01:00)
[2019-12-07] MEDS ORDERED: SODIUM ZIRCONIUM CYCLOSILICATE 10 GM POWD.PACK PO ONE (01:00)
[2019-12-07] MEDS ORDERED: CALCIUM GLUCONATE 10% 1,000 MG in NACL 0.9% 50 ML IV ONE (01:00)
[2019-12-07] MEDS ORDERED: ALBUTEROL 0.083% 2.5 MG/3 ML NEBU INH ONE ×2 (01:00)
--- NOTE | 2019-12-07 01:20 | NUR ---
NOTIFIED PROVISIONING ANALYST TERESA REGARDING CALCIUM GLUCONATE IV ORDER FOR POTASSIUM OF 7.[address] PERRY ORDERS. TERESA CALLED ON-CALL PHARMACIST SPIKE AND PER SPIKE, CALCIUM GLUCONATE CAN WAIT UNTIL MORNING SHIFT. WILL CONTINUE TO MONITOR.
[2019-12-07] MEDS: HYDRAGUARD CREAM TP SCH ×2 (01:28→13:00)
--- NOTE | 2019-12-07 01:29 | NUR ---
SCHEDULED MEDICATIONS DUE GIVEN. CALCIUM GLUCONATE IV NOT GIVEN AT THIS TIME DUE TO NOT AVAILABLE. PER ANTIQUE REFINISHER PHARMACIST, IT CAN WAIT UNTIL AM SHIFT.
[2019-12-07] MEDS: levETIRAcetam 100 MG/ML ORASYR GT SCH ×3 (04:43→20:23)
[2019-12-07] MEDS: MEROPENEM 1,000 MG in NACL 0.9% 100 ML IV SCH (04:44)
--- NOTE | 2019-12-07 04:46 | NUR ---
SCHEDULED MEDICATIONS DUE GIVEN. PERFORMED ORAL CARE. WILL CONTINUE TO MONITOR.
[2019-12-07] MEDS: LANSOPRAZOLE 30 MG CAPDR PO SCH (06:09)
[2019-12-07] MEDS: BLOOD GLUCOSE MONITORING 1 DEV DEV FS SCH ×4 (06:10→20:22)
[2019-12-07] MEDS: INSULIN LISPRO SLIDING SCALE 100 UNITS/ML VIAL SUBQ PRN ×3 (06:11→20:23)
--- NOTE | 2019-12-07 06:13 | NUR ---
SCHEDULED MEDICATIONS DUE GIVEN. WILL CONTINUE TO MONITOR.
--- NOTE | 2019-12-07 07:23 | NUR ---
GAVE REPORT TO AM SHIFT NURSE FOR CONTINUITY OF CARE. PATIENT IN STABLE CONDITION.
--- NOTE | 2019-12-07 07:24 | NUR ---
RECEIVED BEDSIDE REPORT FROM BATH SOLUTION MAKER NURSE, PT LETHARGIC, UNABLE TO LET NEEDS KNOWN, TRACH TO VENT, NO SOB NOTED, KEZIA CHEST RISE, MIDLINE DOUBLE LUMEN TO L UPPER ARM, PATENT INTACT, INFUSING WELL, IV TO L HAND 22G PATENT INTACT, SL, GTUBE IN PLACE RESIDUAL 30ML, RECEIVED REPORT PT NOT TOLERATING FEEDING WELL, WILL RESTART FEEDING AT 20 ML/HR, POMPA CATH IN PLACE, DRAINING TO GRAVITY, RECTAL TUBE IN PLACE DRAINING TO GRAVITY, INITIAL ASSESSMENT DONE, ALL SAFETY PRECAUTION MET, CALL LIGHT WITHIN REACH, WILL CONTINUE TO MONITOR.
[2019-12-07 07:26] LABS: BASOPHILS % (AUTO) 0.2 % (0.0-2.0); EOSINOPHILS # (AUTO) 0.1 K/uL (0-0.4); EOSINOPHILS % (AUTO) 1.3 % (0.0-4.0); HEMATOCRIT 29.2 % (36-52); HEMOGLOBIN 9.5 g/dL (12.0-18.0); LYMPHOCYTES # (AUTO) 0.7 K/uL (2.0-11.5); LYMPHOCYTES % (AUTO) 8.3 % (20.5-51.1); MEAN CORPUSCULAR HEMOGLOBIN 29 pg (27-31); MEAN CORPUSCULAR HGB CONC 32 g/dL (33-37); MEAN CORPUSCULAR VOLUME 88.1 fL (80-94); MONOCYTES # (AUTO) 0.4 K/uL (0.8-1.0); MONOCYTES % (AUTO) 4.8 % (1.7-9.3); NEUTROPHILS % (AUTO) 85.4 % (42.2-75.2); PLATELET COUNT (AUTO) 148 K/uL (140-450); RED BLOOD CELL COUNT(AUTO) 3.32 MIL/uL (4.20-6.10); RED CELL DISTRIBUTION WIDTH 17.3 % (11.6-13.7); WHITE BLOOD COUNT (AUTO) 8.2 K/uL (4.8-10.8)
[2019-12-07] MEDS ORDERED: CALCIUM GLUCONATE 10% 1,000 MG in NACL 0.9% 50 ML IV SCH (08:30)
[2019-12-07 08:48] LABS: ANION GAP 19.9 (8-16); CARBON DIOXIDE 20.9 mmol/L (21-32); CHLORIDE 104 mmol/L (98-107); GLUCOSE 221 mg/dL (74-106); POTASSIUM 5.8 mmol/L (3.5-5.1); SODIUM SERUM 139 mmol/L (136-145)
[2019-12-07 08:49] LABS: CREATININE 1.7 mg/dL (0.6-1.3); UREA NITROGEN, BLOOD 74 mg/dL (7-18)
[2019-12-07] MEDS: PHARMACY COMMENTS MC SCH (09:00)
--- NOTE | 2019-12-07 09:10 | NUR ---
CALLED PICC RN REGARDING ORDER PICC ORDER, RN STATED UNDERSTANDING WILL PAGE THE PICC RNS TO GIVE US A CALL WITH ESTIMATED TIME.
[2019-12-07] MEDS: ASCORBIC ACID 500 MG TAB PO SCH (09:18)
[2019-12-07] MEDS: ATORVASTATIN 20 MG TAB PO SCH (09:19)
[2019-12-07] MEDS: DIGOXIN 0.125 MG TAB GT SCH (09:19)
[2019-12-07] MEDS: ZINC SULF 220 MG CAP PO SCH (09:19)
[2019-12-07] MEDS: COLISTIMETHATE SODIUM 75 MG in NACL 0.9% 100 ML IV SCH ×2 (09:20→20:23)
--- NOTE | 2019-12-07 09:20 | NUR ---
DUE MEDICATION ADMINISTERED, PT TOLERATED WELL, NO DISTRESS NOTED, WILL CONTINUE TO MONITOR.
[2019-12-07] MEDS: INSULIN LANTUS 100 UNITS/ML 10 ML VIAL SUBQ SCH (09:33)
[2019-12-07] MEDS ORDERED: CRUSHER, PILL MC ONE (09:33)
[2019-12-07] MEDS ORDERED: SODIUM ZIRCONIUM CYCLOSILICATE 10 GM POWD.PACK GT SCH (10:15)
--- NOTE | 2019-12-07 10:30 | NUR ---
TALKED TO DR MCALLISTER REGARDING PT RECEIVING 300ML Q4H FWF THROUGH G TUBE, PT IS NOT TOLERATING FEEDING WELL, AND PT IS VERY SWOLLEN, PER DR BEAN TO CHANGE TO 100ML, WILL PUT IN ORDER AND CONTINUE WITH ORDERS.
--- NOTE | 2019-12-07 10:51 | NUR ---
PER DR PERRY TO ORDER LASIX 40MG, IVP NOW, ONCE, WILL PUT IN ORDERS AND CONTINUE WITH ORDERS.
[2019-12-07] MEDS ORDERED: FUROSEMIDE 40 MG/4 ML VIAL IVP SCH (11:00)
--- NOTE | 2019-12-07 11:25 | NUR ---
TELEPHONE CONSENT WITH DARI VERA PT DEPUTY PUBLIC GUARDIAN FOR PICC INSERTION.
--- NOTE | 2019-12-07 11:50 | NUR ---
DUE MEDICATION ADMINISTERED, PT TOLERATED WELL, WILL CONTINUE TO MONTIOR.
--- NOTE | 2019-12-07 13:01 | NUR ---
CHANGED AND CLEAN PT, DRESSINGS IN PLACE,WILL CONTINUE TO MONITOR.
[2019-12-07] MEDS: THERAHONEY GEL 42.5 GM TP SCH (14:30)
--- NOTE | 2019-12-07 14:30 | NUR ---
DUE MEDICATION ADMINISTERED, PT TOLERATED WELL, WILL CONTINUE TO MONITOR.
[2019-12-07] MEDS: NACL 0.9% 1,000 ML IV SCH ×2 (14:35→19:43)
--- NOTE | 2019-12-07 15:15 | NUR ---
CALLED PICC RN AGAIN REGARDING STATUS, WAS TOLD PICC RN ON THE WAY WILL LET US KNOW.
[2019-12-07] MEDS: FLUCONAZOLE 200 MG/NS PREMIX 100 ML IV SCH (16:52)
--- NOTE | 2019-12-07 17:29 | NUR ---
12/07/19 RD FOLLOW UP COMPLETED. PLEASE REFER TO NUTRITION ASSESSMENT UNDER CARE ACTIVITY FOR ESTIMATED NUTRITIONAL NEEDS. 1. WHEN MEDICALLY APPROPRIATE, RE-START ENTERAL FEED OF GLUCERNA 1.2 @70 ML/HR BEGIN AT 20 ML/HR AND INCREASE 10 ML/HR TO GOAL RATE THIS WILL PROVIDE 2016 CALORIES AND 101 GM OF PROTEIN 2. DECREASE FREE WATER FLUSH TO 100 ML Q4H 3. CONTINUE VITAMIN C AND ZINC FOR WOUND HEALING 4. RD TO FOLLOW-UP IN 2-3 DAYS PATIENT IS HIGH RISK. NUNU HERNANDEZ RD
--- NOTE | 2019-12-07 17:33 | NUR ---
PICC RN CALLED STATED WILL BE COMING IN ABOUT 2 HOURS. WILL ENDORSE TO CLOTH SPREADER SCREEN PRINTING
--- NOTE | 2019-12-07 19:20 | NUR ---
ENDORSED PT TO SHIPPING CLERK NURSE ADELAIDA HULL FOR CONTINUOUS OF CARE.
--- NOTE | 2019-12-07 19:22 | NUR ---
RECEIVED PATIENT IN STABLE CONDITION FROM AM SHIFT NURSE FOR CONTINUITY OF CARE. TELE PATIENT. TRACH TO VENT. RESPIRATIONS EVEN, UNLABORED. VENT SETTINGS AC MODE FIO2 60% RR 22 PEEP 10. SUCTIONED WHITE THIN SECRETIONS. NO S/S RESPIRATORY DISTRESS. SKIN WARM, DRY. MIDLINE TO LEFT ARM DOUBLE LUMEN PATENT/INTACT WITH FLUIDS INFUSING WELL. SALINE LOCK TO RIGHT HAND 22G PATENT/INTACT. FLACC 0. NO S/S ACUTE DISTRESS. ABDOMEN SOFT, NONTENDER. GT PATENT/INTACT. CONTINUES ON ENTERAL FEEDING WITH 20ML OF RESIDUAL NOTED. HOB UP 30 DEGREES. POMPA CATHETER PATENT WITH YELLOW URINE DRAINING TO GRAVITY. RECTAL TUBE IN PLACE WITH BROWN STOOL NOTED IN COLLECTION BAG.
--- NOTE | 2019-12-07 20:06 | NUR ---
CALLED PICC NURSE AT [phone] AND LEFT MESSAGE REGARDING ETA FOR PICC PLACEMENT.
--- NOTE | 2019-12-07 20:10 | NUR ---
HELD TUBE FEEDING DUE TO ELEVATED RESIDUAL OF 120 ML. Addendum: 12/08/19 at 0051 by Elida Ramos RN RESIDUAL AMOUNT 210 ML, NOT 120ML.
--- NOTE | 2019-12-07 21:20 | NUR ---
REPOSITIONED PATIENT WITH [employer] PROGRAM COORDINATOR AT BEDSIDE. TUBE FEEDING RESUMED, RESIDUAL AT 20 ML. FLACC 0. NO S/S ACUTE DISTRESS. CALL LIGHT WITHIN REACH. SAFETY PRECAUTIONS IN PLACE. ISOLATION PRECAUTIONS OBSERVED BY ALL STAFF.
--- NOTE | 2019-12-07 22:56 | NUR ---
PICC NURSE CALLED BACK AND WILL BE UNABLE TO COME TONIGHT. WILL COME TOMORROW IN THE MORNING FOR INSERTION. PATIENT HAS EXISTING LEFT ARM MIDLINE FOR IV ACCESS.
--- NOTE | 2019-12-07 23:12 | NUR ---
PATIENT CONTINUES IN STABLE CONDITION. NO S/S ACUTE DISTRESS. FLACC 0. O2SAT 98%. CALL LIGHT WITHIN REACH. SAFETY PRECAUTIONS IN PLACE. ISOLATION PRECAUTIONS OBSERVED BY ALL STAFF.
[2019-12-08] VITALS: BP 113/51
[2019-12-08] MEDS: HYDRAGUARD CREAM TP SCH (01:02)
--- NOTE | 2019-12-08 01:07 | NUR ---
PATIENT IN STABLE CONDITION. FLACC 0. NO S/S ACUTE DISTRESS. CALL LIGHT WITHIN REACH. SAFETY PRECAUTIONS IN PLACE. ISOLATION PRECAUTIONS OBSERVED BY ALL STAFF.
--- NOTE | 2019-12-08 03:14 | NUR ---
SUCTIONED WHITE THIN SECRETIONS. PATIENT IN STABLE CONDITION. FLACC 0. NO S/S ACUTE DISTRESS. CALL LIGHT WITHIN REACH. SAFETY PRECAUTIONS IN PLACE. ISOLATION PRECAUTIONS OBSERVED BY ALL STAFF.
[2019-12-08 04:00] VITALS: BP 97/44
[2019-12-08] MEDS ORDERED: NACL 0.9% 1,000 ML IV ONE (04:25)
[2019-12-08] MEDS: levETIRAcetam 100 MG/ML ORASYR GT SCH (04:34)
--- NOTE | 2019-12-08 05:22 | NUR ---
MADE AWARE OF LOW BP OF 97/44. NEW ORDER FOR NS 1L BOLUS. BP CURRENTLY 106/47. CALL LIGHT WITHIN REACH. SAFETY PRECAUTIONS IN PLACE.
[2019-12-08] MEDS: LANSOPRAZOLE 30 MG CAPDR PO SCH (05:37)
[2019-12-08] MEDS: INSULIN LISPRO SLIDING SCALE 100 UNITS/ML VIAL SUBQ PRN (05:40)
[2019-12-08 06:01] LABS: HEMATOCRIT 28.7 % (36-52); HEMOGLOBIN 8.9 g/dL (12.0-18.0); MEAN CORPUSCULAR HEMOGLOBIN 28 pg (27-31); MEAN CORPUSCULAR HGB CONC 31 g/dL (33-37); MEAN CORPUSCULAR VOLUME 90.8 fL (80-94); PLATELET COUNT (AUTO) 249 K/uL (140-450); RED BLOOD CELL COUNT(AUTO) 3.16 MIL/uL (4.20-6.10); RED CELL DISTRIBUTION WIDTH 17.5 % (11.6-13.7); WHITE BLOOD COUNT (AUTO) 16.4 K/uL (4.8-10.8)
[2019-12-08 06:20] LABS: ANION GAP 17.1 (8-16); CHLORIDE 104 mmol/L (98-107); CREATININE 1.9 mg/dL (0.6-1.3); GLUCOSE 201 mg/dL (74-106); POTASSIUM 5.1 mmol/L (3.5-5.1); SODIUM SERUM 139 mmol/L (136-145)
[2019-12-08 06:21] LABS: MAGNESIUM 2.4 mg/dL (1.8-2.4)
[2019-12-08 06:34] LABS: UREA NITROGEN, BLOOD 75 mg/dL (7-18)
[2019-12-08] MEDS: BLOOD GLUCOSE MONITORING 1 DEV DEV FS SCH ×2 (06:38→11:30)
[2019-12-08 07:00] LABS: LYMPHOCYTES % (MANUAL) 4 % (20-46); MONOCYTES % (MANUAL) 2 % (5-12)
--- NOTE | 2019-12-08 07:15 | NUR ---
RECEIVED REPORT FROM [employer] TEAMMATE NURSE ADELAIDA FOR CONTINUITY OF CARE. PATIENT IN STABLE CONDITION. RESPIRATIONS EVEN AND UNLABORED, TRACH TO VENT. IV ACCESS INTACT AND PATENT. SAFETY MEASURES IN PLACE. BED IN LOW POSITION. BED ALARM ON. CALL LIGHT WITHIN REACH. WILL CONTINUE TO MONITOR.
[2019-12-08 08:00] VITALS: BP 114/48
--- NOTE | 2019-12-08 09:50 | NUR ---
GAVE ORDERED DUE MEDICATIONS AT THIS TIME. PATIENT TOLERATED WELL. BED IN LOW POSITION. CALL LIGHT AT BEDSIDE. BED ALARM ON. WILL CONTINUE TO MONITOR.
[2019-12-08] MEDS: COLISTIMETHATE SODIUM 75 MG in NACL 0.9% 100 ML IV SCH (09:59)
[2019-12-08] MEDS: DIGOXIN 0.125 MG TAB GT SCH (09:59)
[2019-12-08] MEDS: ZINC SULF 220 MG CAP PO SCH (09:59)
[2019-12-08] MEDS: ASCORBIC ACID 500 MG TAB PO SCH (10:00)
[2019-12-08] MEDS: ATORVASTATIN 20 MG TAB PO SCH (10:00)
[2019-12-08] MEDS: INSULIN LANTUS 100 UNITS/ML 10 ML VIAL SUBQ SCH (10:03)
--- NOTE | 2019-12-08 10:40 | NUR ---
ASSISTED WITH CHANGING LINENS AT THIS TIME WITH CECI
--- NOTE | 2019-12-08 10:47 | NUR ---
CODE BLUE CALLED AT [phone]
[2019-12-08 12:00] VITALS: BP 158/47
--- NOTE | 2019-12-08 12:37 | NUR ---
PATIENT PRONOUNCED AT 1237 BY YANIRA OLIVIER D.O.
--- NOTE | 2019-12-08 13:00 | NUR ---
CALLED CONSERVATOR MOE [phone], CHEMICAL CELL CHANGER AND [employer] CASE # [id number] CONSERVATOR GAVE INFORMATION ON MORTUARY TO USE WHEN BODY IS RELEASED: [facility] [employer]. [place].
--- NOTE | 2019-12-08 14:52 | NUR ---
FINANCIAL SALES REPRESENTATIVE LUCIO PASCUAL: TO BE REPORTED BY THE MORTUARY, BODY IS RELEASED.
--- NOTE | 2019-12-08 18:20 | NUR ---
[facility] BURIAL PICKED UP PATIENT AT THIS TIME.
== END 2019-12-08 12:37 | disposition expired | DRG 853 ==
LOC: MED 23:30 → MTU 11-26 01:40 → EEVIPCON 11-26 01:40 → MTU 11-26 13:55 → MIC 12-01 02:35 → MTU 12-05 01:07
PROVIDERS: ADMIT General Practice; ATTEND General Practice
PROC: 0V508ZZ Destruction of Prostate, Via Natural or Artificial Opening Endoscopic (ICD-10-PCS; 2019-11-27)
PROC: 0T5B8ZZ Destruction of Bladder, Via Natural or Artificial Opening Endoscopic (ICD-10-PCS; 2019-11-27)
PROC: 0TCB8ZZ Extirpation of Matter from Bladder, Via Natural or Artificial Opening Endoscopic (ICD-10-PCS; 2019-11-27)
PROC: 5A12012 Performance of Cardiac Output, Single, Manual (ICD-10-PCS; 2019-12-01)
PROC: 30233N1 Transfusion of Nonautologous Red Blood Cells into Peripheral Vein, Percutaneous Approach (ICD-10-PCS; 2019-12-01)
PROC: 5A1955Z Respiratory Ventilation, Greater than 96 Consecutive Hours (ICD-10-PCS; principal; 2019-12-02)
DX: A41.9 Sepsis, unspecified organism (principal); J69.0 Pneumonitis due to inhalation of food and vomit; R65.21 Severe sepsis with septic shock; J96.01 Acute respiratory failure with hypoxia; J96.21 Acute and chronic respiratory failure with hypoxia; J96.22 Acute and chronic respiratory failure with hypercapnia; R53.2 Functional quadriplegia; E11.10 Type 2 diabetes mellitus with ketoacidosis without coma; E87.0 Hyperosmolality and hypernatremia; G93.1 Anoxic brain damage, not elsewhere classified; J91.8 Pleural effusion in other conditions classified elsewhere; J98.11 Atelectasis; N13.6 Pyonephrosis; N17.9 Acute kidney failure, unspecified; Z99.11 Dependence on respirator [ventilator] status; K92.2 Gastrointestinal hemorrhage, unspecified; I46.9 Cardiac arrest, cause unspecified; D64.9 Anemia, unspecified; E11.65 Type 2 diabetes mellitus with hyperglycemia; E78.00 Pure hypercholesterolemia, unspecified; E83.39 Other disorders of phosphorus metabolism; E87.8 Other disorders of electrolyte and fluid balance, not elsewhere classified; G40.909 Epilepsy, unspecified, not intractable, without status epilepticus; L89.159 Pressure ulcer of sacral region, unspecified stage; R13.10 Dysphagia, unspecified; Y95 Nosocomial condition; Z66 Do not resuscitate; Z86.73 Personal history of transient ischemic attack (TIA), and cerebral infarction without residual deficits; K59.09 Other constipation; K80.20 Calculus of gallbladder without cholecystitis without obstruction; N35.919 Unspecified urethral stricture, male, unspecified site; R31.0 Gross hematuria; N18.3 Chronic kidney disease, stage 3 (moderate); I12.9 Hypertensive chronic kidney disease with stage 1 through stage 4 chronic kidney disease, or unspecified chronic kidney disease; E87.5 Hyperkalemia; Z20.828 Contact with and (suspected) exposure to other viral communicable diseases; N40.1 Benign prostatic hyperplasia with lower urinary tract symptoms
CPT/HCPCS: 36415; 36600; 70450; 71045; 74018; 76604; 80048; 80053; 80202; 81001; 82150; 82272; 82607; 82728; 82803; 82948; 83036; 83540; 83605; 83625; 83690; 83735; 83880; 84100; 84439; 84443; 84484; 85025; 85379; 85384; 85610; 85651; 85730; 86140; 86886; 86900; 86901; 86920; 87040; 87070; 87081; 87086; 87186; 87205; 93005; 94002; 94003; A4330; C1751; C1758; C1769; J0610; J0770; J1160; J1450; J1644; J1815; J1885; J1940; J1953; J1956; J2185; J2543; J3370; J3430; J3475; J3480; J3490; J7030; J7060; P9016; Q0092; Q0163; U0003-CS